=== PATIENT | male | born 1930 ===

== ENCOUNTER 2016-11-08 15:58 | Inpatient (IN) | payer MEDICARE, MEDICAID ==
--- NOTE | 2016-11-08 18:14 | C.PDOC ---
History Of Present Illness 86 y/o male with Hx of HTN, DM atrial fibrillation, and CHF with PPM presents to ED with complaints of ears clogged and dry cough since Sunday. Patient also reports sob, with exertion and sometimes with cough. He also c/o epigastric discomfort with associated decreased appetite. Last bowel movement was this morning and as per patient it was small. Patient denies n/v/d, fever, palpitations. Time Seen by Provider: 11/08/16 17:21 Chief Complaint (Nursing): Cough, Cold, Congestion History Per: Patient History/Exam Limitations: no limitations Onset/Duration Of Symptoms: Days Current Symptoms Are (Timing): Still Present Associated Symptoms: Cough Ear Symptoms: Bilateral: Ear Fullness Severity: Mild Past Medical History Reviewed: Historical Data, Nursing Documentation, Vital Signs Vital Signs: Last Vital Signs Temp 99.5 F 11/08/16 18:54 Pulse 90 11/08/16 18:54 Resp 20 11/08/16 18:54 BP 155/76 H 11/08/16 18:54 Pulse Ox 100 11/08/16 18:54 - Medical History PMH: CHF, HTN, Hypercholesterolemia, Seizures Surgical History: No Surg Hx, Pacemaker Family History: States: No Known Family Hx - Social History Hx Alcohol Use: No Hx Substance Use: No - Immunization History Hx Tetanus Toxoid Vaccination: No Hx Influenza Vaccination: No Hx Pneumococcal Vaccination: No Review Of Systems Except As Marked, All Systems Reviewed And Found Negative. ENT: Positive for: Ear Pain Cardiovascular: Negative for: Chest Pain, Palpitations Respiratory: Positive for: Cough, Shortness of Breath Gastrointestinal: Positive for: Abdominal Pain. Negative for: Nausea, Vomiting , Diarrhea Genitourinary: Negative for: Dysuria, Hematuria Physical Exam - Physical Exam Appears: Well, Non-toxic, No Acute Distress Skin: Normal Color, Warm, Dry, No Rash Head: Normacephalic Eye(s): bilateral: Normal Inspection Ear(s): Bilateral: Other (cerumen in ears bilateral) Oral Mucosa: Moist Throat: Normal, No Erythema, No Exudate Cardiovascular: Rhythm Regular Respiratory: Normal Breath Sounds, No Rales, No Rhonchi, No Wheezing Gastrointestinal/Abdominal: Bowel Sounds, Soft, Tenderness (mild TTP epigastric/ LUG), No Distention, No Guarding, No Rebound, Other (Obese ) Extremity: Normal ROM, Pedal Edema (+1 pitting edema B/L LEs) Pulses: Left Dorsalis Pedis: Normal, Right Dorsalis Pedis: Normal Neurological/Psych: Oriented x3 ED Course And Treatment ECG: Interpreted By Me, Viewed By Me (atrial fibrillation 89 bpm, left axis deviation, T wave inversions I, aVL, V5-V6, no acute ST changes) ECG Interpretation: Abnormal O2 Sat by Pulse Oximetry: 99 (RA) Pulse Ox Interpretation: Normal - Radiology CXR: Interpreted by Me, Viewed By Me (shadow behind heart- ? hiatal hernia ) CXR Interpretation: No: Infiltrates Progress Note: Blood work, CXR, EKG ordered and reviewed. CXR abnormal - CTA chest ordered. Disposition - Disposition Disposition Time: 19:05 Condition: STABLE Forms: [employer] (Welsh) - Clinical Impression Clinical Impression: Cough, Dyspnea, Leg edema - Scribe Statement The provider has reviewed the documentation as recorded by the Scribe Sri Villeda All medical record entries made by the Scribe were at my direction and personally dictated by me. I have reviewed the chart and agree that the record accurately reflects my personal performance of the history, physical exam, medical decision making, and the department course for this patient. I have also personally directed, reviewed, and agree with the discharge instructions and disposition. Physician Patient Turnover Patient Signed Over To: Sierra Ward Handoff Comments: pending labs, CT chest, reassess
[2016-11-08 18:50] LABS: BASO # 0.1 K/uL (0.0-0.2); BASO % 0.9 % (0.0-2.0); EOS # 0.1 K/uL (0.0-0.7); EOS % 1.2 % (0.0-4.0); HEMATOCRIT 31.5 % (35.0-51.0); LYMPH # 1.6 K/uL (1.0-4.3); LYMPH % 14.6 % (20.0-40.0); MEAN CORPUSCULAR HEMOGLOBIN 26.3 pg (27.0-31.0); MEAN CORPUSCULAR HGB CONC 32.9 g/dL (33.0-37.0); MEAN PLATELET VOLUME 10.7 fL (7.2-11.7); MONO # 1.6 K/uL (0.0-0.8); MONO % 14.7 % (0.0-10.0); NRBC % 0.1 % (0.0-2.0); RED CELL DISTRIBUTION WIDTH 15.4 % (11.5-14.5); WHITE BLOOD COUNT 10.6 K/uL (4.8-10.8)
[2016-11-08 18:55] LABS: CHLORIDE 103 mmol/L (98-107)
[2016-11-08 18:56] LABS: POTASSIUM 3.7 mmol/L (3.6-5.2); SODIUM 143 mmol/L (132-148)
[2016-11-08 18:58] LABS: ALB/GLOB RATIO 1.2 (1.0-2.1); ALKALINE PHOSPHATASE 33 U/L (38-126); ALT/SGPT 22 U/L (21-72); AST/SGOT 21 U/L (17-59); BILIRUBIN,TOTAL 1.5 mg/dL (0.2-1.3); BLOOD UREA NITROGEN 22 mg/dL (9-20); CARBON DIOXIDE 21 mmol/L (22-30); GFR AFRICAN-AMERICAN > 60; GLUCOSE,RANDOM 96 mg/dL (75-110); TOTAL PROTEIN 7.9 g/dL (6.3-8.3)
[2016-11-08 18:59] LABS: CALCIUM 9.7 mg/dl (8.6-10.4)
[2016-11-08] MEDS ORDERED: Iohexol 350mg/ml 100 ML ONE (19:07)
[2016-11-08 19:15] LABS: INR 1.8
--- NOTE | 2016-11-08 22:03 | CT ---
EXAM: CT Angiography Chest With Intravenous Contrast EXAM DATE/TIME: Exam ordered 11/08/2016 6:56 PM CLINICAL HISTORY: 86 years old, male; Condition or disease; Lung condition and disease; Pulmonary embolism; Additional info: Chest pain, back pain, R/O dissection TECHNIQUE: Axial computed tomographic angiography images of the chest with intravenous contrast using pulmonary embolism protocol. All CT scans at this facility use one or more dose reduction techniques, viz.: automated exposure control; ma/kV adjustment per patient size (including targeted exams where dose is matched to indication; i.e. head); or iterative reconstruction technique. MIP reconstructed images were created and reviewed. Coronal and sagittal reformatted images were created and reviewed. CONTRAST: 100 mL of VISIPAQUE 320 administered intravenously. COMPARISON: No relevant prior studies available. FINDINGS: Pulmonary arteries: Unremarkable. No pulmonary embolism. Aorta: No acute findings. No thoracic aortic aneurysm. Inferior vena cava: Is reflux of contrast into the inferior vena cava Lungs: There are interstitial thickening noted of the central bronchovascular bundles. No mass.There is a mosaic perfusion pattern noted within both lungs. Pleural space: Unremarkable. No significant effusion. No pneumothorax. Heart: There is mild cardiomegaly. No significant pericardial effusion. No evidence of RV dysfunction. Mediastinum: Small hiatal hernia. Bones/joints: Degenerative changes are noted of the dorsal spine. No acute fracture. No dislocation. Soft tissues: Unremarkable. Lymph nodes: Subcarinal node is present measuring 2 x 1.3 cm x 1.2 cm. A right infrahilar lymph node measures 2 x 1.2 x 1.6 cm. There is enlargement of the main pulmonary artery which measures 3.9 cm in diameter. Kidneys and ureters: Other findings: The RV to LV ratio is 1.14. IMPRESSION: 1. No pulmonary embolism. No aortic dissection. 2. Mosaic perfusion pattern within both lungs. Differential diagnostic considerations include air trapping, chronic venoocclusive disease and underlying interstitial lung disease. 3. Enlarged main pulmonary artery with elevated right ventricular/left ventricular ratio and reflux of contrast into the inferior vena cava. Pulmonary artery hypertension with right ventricular dysfunction should be considered. 4. Mediastinal adenopathy. Clinical correlation suggested. 5. Small hiatal hernia
[2016-11-09] MEDS ORDERED: Benzocaine/Menthol (Cepacol) Lozenge MT PRN (06:58)
--- NOTE | 2016-11-09 07:16 | CP.PCM.HP ---
<Donovan Zaldivar - Last Filed: 11/09/16 09:07> History of Present Illness - History of Present Illness History of Present Illness: 86 yo M was brought to the ED by his family. The patient is a very poor historian and the family had already left when I interviewed the patient and could not be reached by telephone. Per patient, he presented to the ED for shortness of breath that began 4 days ago. He also complains of subjective fever , diffuse chest pain, cough and abdominal pain. He denied all other prompts on review of symptom. He was not able to tell me his past medical history however his home medications were brought by his family earlier as per nurse. He stated his PMD is Dr Rodriguez and that he usually goes to [facility]. Upon chart review, this is the patient's first admission at [facility]. PMD: Dr Eddie Rodriguez PMHx: DM2, Pacemaker, poor historian thus rest will need to be verified by his PMD Home Medications: Apixaban 5mg po bid, carvedilol 25mg po bid, dutasteride 0.5mg po daily, famotidine 40mg po daily, fenofibrate 145mg po daily, furosemide 20mg po daily, losartan 50mg po daily, meclizine 25mg po tid, metformin 1000 po bid, phenytoin 100mg po tid, simvastatin 20mg po hs Allergies: NKA SocialHx: denied tobacco, alcohol, drug use; lives with in [facility], former cheese factory worker FamHx: denied Present on Admission - Present on Admission Any Indicators Present on Admission: No History of DVT/PE: No History of Uncontrolled Diabetes: No Urinary Catheter: No Decubitus Ulcer Present: No Review of Systems - Review of Systems Systems not reviewed;Unavailable: Dementia Review of Systems: possible dementia - Constitutional Constitutional: Fever. absent: Chills - EENT Eyes: Change in Vision - Cardiovascular Cardiovascular: Chest Pain. absent: Diaphoresis, Pain Radiating to Arm/Neck/Jaw - Respiratory Respiratory: Dyspnea - Gastrointestinal Gastrointestinal: Abdominal Pain - Genitourinary Genitourinary: absent: Change in Urinary Stream, Dysuria - Musculoskeletal Musculoskeletal: absent: Limited Range of Motion - Neurological Neurological: absent: Confusion Past Patient History - Past Medical History & Family History Past Medical History?: Yes - Past Social History Smoking Status: Never Smoked - CARDIAC Hx Congestive Heart Failure: Yes Hx Hypercholesterolemia: Yes Hx Hypertension: Yes Hx Pacemaker: Yes - NEUROLOGICAL Hx Seizures: Yes - ENDOCRINE/METABOLIC Hx Diabetes Mellitus Type 1: Yes - MUSCULOSKELETAL/RHEUMATOLOGICAL Hx Falls: Yes - PSYCHIATRIC Hx Substance Use: No - SURGICAL HISTORY Hx Eye Surgery: Yes (Both) - ANESTHESIA Hx Anesthesia: Yes Hx Anesthesia Reactions: No Meds Allergies/Adverse Reactions: Allergies Allergy/AdvReac Type Severity Reaction Status Date / Time No Known Allergies Allergy Verified 11/08/16 16:41 Physical Exam - Constitutional Appears: Well, Non-toxic, No Acute Distress - Head Exam Head Exam: ATRAUMATIC, NORMAL INSPECTION - Eye Exam Eye Exam: EOMI Pupil Exam: absent: PERRL Additional comments: left cornea cloudy - ENT Exam ENT Exam: Mucous Membranes Moist - Neck Exam Neck exam: Positive for: Normal Inspection. Negative for: Lymphadenopathy - Respiratory Exam Respiratory Exam: Rales, Wheezes - Cardiovascular Exam Cardiovascular Exam: Irregular Rhythm - GI/Abdominal Exam GI & Abdominal Exam: Normal Bowel Sounds, Soft. absent: Tenderness - Rectal Exam Rectal Exam: Deferred - Back Exam Back exam: NORMAL INSPECTION. absent: CVA tenderness (L), CVA tenderness (R) Results - Vital Signs Recent Vital Signs: Last Vital Signs Temp 98.1 F 11/09/16 02:30 Pulse 83 11/09/16 05:00 Resp 20 11/09/16 02:30 BP 140/81 11/09/16 02:30 Pulse Ox 97 11/09/16 02:30 - Labs Result Diagrams: 11/09/16 08:06 11/09/16 08:06 Labs: Laboratory Results - last 24 hr 11/08/16 11/08/16 11/08/16 18:43 18:43 18:43 WBC 10.6 RBC 3.94 L Hgb 10.4 L Hct 31.5 L MCV 80.0 MCH 26.3 L MCHC 32.9 L RDW 15.4 H Plt Count 165 MPV 10.7 Neut % (Auto) 68.6 Lymph % (Auto) 14.6 L [place] % (Auto) 14.7 H Eos % (Auto) 1.2 Baso % (Auto) 0.9 Neut # 7.3 H Lymph # 1.6 [place] # 1.6 H Eos # 0.1 Baso # 0.1 PT 21.4 H INR 1.8 APTT 40 H Sodium 143 Potassium 3.7 Chloride 103 Carbon Dioxide 21 L Anion Gap 23 H BUN 22 H Creatinine 1.3 Est GFR ( Amer) > 60 Est GFR (Non-Af Amer) 52 POC Glucose (mg/dL) Random Glucose 96 Calcium 9.7 Total Bilirubin 1.5 H AST 21 ALT 22 Alkaline Phosphatase 33 L Total Creatine Kinase 61 CK-MB (Mass) 0.67 Troponin I 0.0300 Troponin I, Quant NT-Pro-B Natriuret Pep 1950 H Total Protein 7.9 Albumin 4.3 Globulin 3.6 Albumin/Globulin Ratio 1.2 11/09/16 11/09/16 03:50 06:52 WBC RBC Hgb Hct MCV MCH MCHC RDW Plt Count MPV Neut % (Auto) Lymph % (Auto) [place] % (Auto) Eos % (Auto) Baso % (Auto) Neut # Lymph # [place] # Eos # Baso # PT INR APTT Sodium Potassium Chloride Carbon Dioxide Anion Gap BUN Creatinine Est GFR ( Amer) Est GFR (Non-Af Amer) POC Glucose (mg/dL) 122 H Random Glucose Calcium Total Bilirubin AST ALT Alkaline Phosphatase Total Creatine Kinase 78 CK-MB (Mass) 0.61 Troponin I Troponin I, Quant 0.0300 NT-Pro-B Natriuret Pep Total Protein Albumin Globulin Albumin/Globulin Ratio Assessment & Plan (1) CHF (congestive heart failure) Assessment and Plan: unknown past medical hx; sob, cough, physical exam finding positive for bibasilar rales Cardiology consulted, Dr Ksenia Sanches ProBNP 1950 daily weights strict I/Os ECHO ordered, F/U head of bed at 30 deg serial ROMIs, first MAXIMILIAN negative furosemide 40 ivp daily con't all home medications (hold home furosemide) Status: Acute (2) Atrial fibrillation Assessment and Plan: Hx of A-Fib; EKG showing A-Fib; rate controlled con't home med apixaban 5mg po bid Status: Acute (3) Prophylactic measure Assessment and Plan: GI: famotidine 40mg po daily DVT: on home med apixaban 5mg po bid Diet: heart healthy diet Status: Acute <Adrián Cm - Last Filed: 11/09/16 19:04> Results - Vital Signs Recent Vital Signs: Last Vital Signs Temp 99.2 F 11/09/16 07:30 Pulse 92 H 11/09/16 07:45 Resp 18 11/09/16 07:30 BP 131/84 11/09/16 11:00 Pulse Ox 98 11/09/16 07:30 - Labs Result Diagrams: 11/09/16 08:06 11/09/16 08:06 Labs: Laboratory Results - last 24 hr 11/08/16 11/08/16 11/09/16 18:43 18:43 03:50 WBC RBC Hgb Hct MCV MCH MCHC RDW Plt Count MPV Neut % (Auto) Lymph % (Auto) [place] % (Auto) Eos % (Auto) Baso % (Auto) Neut # Lymph # [place] # Eos # Baso # PT 21.4 H INR 1.8 APTT 40 H Sodium Potassium Chloride Carbon Dioxide Anion Gap BUN Creatinine Est GFR ( Amer) Est GFR (Non-Af Amer) POC Glucose (mg/dL) Random Glucose Hemoglobin A1c Calcium Iron TIBC % Saturation Ferritin Total Bilirubin AST ALT Alkaline Phosphatase Total Creatine Kinase 78 CK-MB (Mass) 0.67 0.61 Troponin I 0.0300 Troponin I, Quant 0.0300 NT-Pro-B Natriuret Pep 1950 H Total Protein Albumin Globulin Albumin/Globulin Ratio Phenytoin Influenza Typ A,B (EIA) 11/09/16 11/09/16 11/09/16 06:52 08:06 08:06 WBC 8.8 RBC 4.01 L Hgb 10.6 L Hct 32.1 L MCV 80.1 MCH 26.4 L MCHC 32.9 L RDW 15.3 H Plt Count 159 MPV 11.4 Neut % (Auto) 69.3 Lymph % (Auto) 14.0 L [place] % (Auto) 15.2 H Eos % (Auto) 1.0 Baso % (Auto) 0.5 Neut # 6.1 Lymph # 1.2 [place] # 1.3 H Eos # 0.1 Baso # 0.0 PT INR APTT Sodium 143 Potassium 3.6 Chloride 101 Carbon Dioxide 23 Anion Gap 23 H BUN 21 H Creatinine 1.2 Est GFR ( Amer) > 60 Est GFR (Non-Af Amer) 57 POC Glucose (mg/dL) 122 H Random Glucose 105 Hemoglobin A1c Calcium 9.7 Iron TIBC % Saturation Ferritin 87.1 Total Bilirubin 1.4 H AST 23 ALT 25 Alkaline Phosphatase 32 L Total Creatine Kinase CK-MB (Mass) Troponin I Troponin I, Quant NT-Pro-B Natriuret Pep Total Protein 7.6 Albumin 4.1 Globulin 3.4 Albumin/Globulin Ratio 1.2 Phenytoin Influenza Typ A,B (EIA) 11/09/16 11/09/16 11/09/16 09:03 11:21 13:46 WBC RBC Hgb Hct MCV MCH MCHC RDW Plt Count MPV Neut % (Auto) Lymph % (Auto) [place] % (Auto) Eos % (Auto) Baso % (Auto) Neut # Lymph # [place] # Eos # Baso # PT INR APTT Sodium Potassium Chloride Carbon Dioxide Anion Gap BUN Creatinine Est GFR ( Amer) Est GFR (Non-Af Amer) POC Glucose (mg/dL) 136 H Random Glucose Hemoglobin A1c Calcium Iron 26 L TIBC 461 H % Saturation 6 L Ferritin Total Bilirubin AST ALT Alkaline Phosphatase Total Creatine Kinase CK-MB (Mass) Troponin I Troponin I, Quant NT-Pro-B Natriuret Pep Total Protein Albumin Globulin Albumin/Globulin Ratio Phenytoin Influenza Typ A,B (EIA) Negative for flu a/b 11/09/16 11/09/16 11/09/16 13:46 13:46 13:46 WBC RBC Hgb Hct MCV MCH MCHC RDW Plt Count MPV Neut % (Auto) Lymph % (Auto) [place] % (Auto) Eos % (Auto) Baso % (Auto) Neut # Lymph # [place] # Eos # Baso # PT INR APTT Sodium Potassium Chloride Carbon Dioxide Anion Gap BUN Creatinine Est GFR ( Amer) Est GFR (Non-Af Amer) POC Glucose (mg/dL) Random Glucose Hemoglobin A1c 5.9 Calcium Iron TIBC % Saturation Ferritin Total Bilirubin AST ALT Alkaline Phosphatase Total Creatine Kinase CK-MB (Mass) Troponin I 0.0350 Troponin I, Quant NT-Pro-B Natriuret Pep Total Protein Albumin Globulin Albumin/Globulin Ratio Phenytoin 13.5 Influenza Typ A,B (EIA) 11/09/16 18:35 WBC RBC Hgb Hct MCV MCH MCHC RDW Plt Count MPV Neut % (Auto) Lymph % (Auto) [place] % (Auto) Eos % (Auto) Baso % (Auto) Neut # Lymph # [place] # Eos # Baso # PT INR APTT Sodium Potassium Chloride Carbon Dioxide Anion Gap BUN Creatinine Est GFR ( Amer) Est GFR (Non-Af Amer) POC Glucose (mg/dL) 118 H Random Glucose Hemoglobin A1c Calcium Iron TIBC % Saturation Ferritin Total Bilirubin AST ALT Alkaline Phosphatase Total Creatine Kinase CK-MB (Mass) Troponin I Troponin I, Quant NT-Pro-B Natriuret Pep Total Protein Albumin Globulin Albumin/Globulin Ratio Phenytoin Influenza Typ A,B (EIA) Assessment & Plan - Date & Time Date: 11/09/16 (I have seen and examined the patient. I agree with the findings and plan of care as documented by Dr. Zaldivar. Patient with CHF exacerbation. Some complaints of chest pain x4 days. ROMIx3 with EKG. Aspirin. IV Lasix. Continue home meds. Patient with history of atrial fibrillation and diabetes. Continue home meds. NISS and accuchecks. Monitor for acute changes.) Time: 19:02 Attending/Attestation - Attestation I have personally seen and examined this patient.: Yes I have fully participated in the care of the patient.: Yes I have reviewed all pertinent clinical information: Yes
--- NOTE | 2016-11-09 08:00 | RAD ---
HISTORY: cough, r/o pneumonia COMPARISON: No prior. TECHNIQUE: Chest PA and lateral FINDINGS: LUNGS: Right hilar prominence. Probable streaky retrocardiac atelectasis. Please note that chest x-ray has limited sensitivity for the detection of pulmonary masses. PLEURA: No significant pleural effusion identified. No definite pneumothorax . CARDIOVASCULAR: Borderline cardiomegaly. Degenerative changes. Dual lead left-sided pacemaker. Atherosclerotic calcifications of the aortic knob. OSSEOUS STRUCTURES: Osseous demineralization. VISUALIZED UPPER ABDOMEN: Unremarkable. OTHER FINDINGS: None. IMPRESSION: Right hilar prominence. Borderline cardiomegaly. Probable streaky retrocardiac atelectasis.
[2016-11-09 08:17] LABS: BASO % 0.5 % (0.0-2.0); EOS # 0.1 K/uL (0.0-0.7); HEMATOCRIT 32.1 % (35.0-51.0); LYMPH # 1.2 K/uL (1.0-4.3); MEAN CELL VOLUME 80.1 fL (80.0-94.0); MEAN CORPUSCULAR HEMOGLOBIN 26.4 pg (27.0-31.0); MEAN CORPUSCULAR HGB CONC 32.9 g/dL (33.0-37.0); MEAN PLATELET VOLUME 11.4 fL (7.2-11.7); MONO # 1.3 K/uL (0.0-0.8); MONO % 15.2 % (0.0-10.0); RED CELL DISTRIBUTION WIDTH 15.3 % (11.5-14.5); WHITE BLOOD COUNT 8.8 K/uL (4.8-10.8)
[2016-11-09 08:26] LABS: CHLORIDE 101 mmol/L (98-107)
[2016-11-09 08:27] LABS: SODIUM 143 mmol/L (132-148)
[2016-11-09 08:28] LABS: POTASSIUM 3.6 mmol/L (3.6-5.2)
[2016-11-09 08:30] LABS: ALB/GLOB RATIO 1.2 (1.0-2.1); ALKALINE PHOSPHATASE 32 U/L (38-126); AST/SGOT 23 U/L (17-59); BILIRUBIN,TOTAL 1.4 mg/dL (0.2-1.3); BLOOD UREA NITROGEN 21 mg/dL (9-20); CARBON DIOXIDE 23 mmol/L (22-30); GFR AFRICAN-AMERICAN > 60; TOTAL PROTEIN 7.6 g/dL (6.3-8.3)
[2016-11-09 08:31] LABS: ALT/SGPT 25 U/L (21-72); CALCIUM 9.7 mg/dl (8.6-10.4); GLUCOSE,RANDOM 105 mg/dL (75-110)
[2016-11-09] MEDS: (Novolin R) Insulin Human Regular 100 units/ml vial SC SCH ×3 (11:50→22:00)
--- NOTE | 2016-11-09 12:59 | CP.PCM.PN ---
Objective - Vital Signs/Intake and Output Vital Signs (last 24 hours): Temp Pulse Resp BP Pulse Ox 99.2 F 99 H 18 131/84 98 11/09/16 07:30 11/09/16 07:30 11/09/16 07:30 11/09/16 11:00 11/09/16 07:30 Intake and Output: 11/09/16 11/09/16 06:59 18:59 Intake Total 120 Output Total 800 Balance -680 - Medications Medications: Current Medications Apixaban (Eliquis) 5 mg PO BID [facility] Last Admin: 11/09/16 11:00 Dose: 5 mg Benzocaine/Menthol (Cepacol Sore Throat) 1 tony [place] DAILY PRN PRN Reason: Sore Throat Carvedilol (Coreg) 25 mg PO BID [facility] Last Admin: 11/09/16 11:00 Dose: 25 mg Famotidine (Pepcid) 40 mg PO DAILY [facility] Last Admin: 11/09/16 11:00 Dose: 40 mg Fenofibrate (Tricor) 145 mg PO [facility] Finasteride (Proscar) 5 mg PO DAILY [facility] Last Admin: 11/09/16 11:00 Dose: 5 mg Furosemide (Lasix) 40 mg IVP DAILY [facility] Last Admin: 11/09/16 11:00 Dose: 40 mg Influenza Virus Vaccine (Afluria) 45 mcg IM .ONCE ONE Stop: 11/10/16 10:01 Insulin Human Regular (Novolin R) 0 unit SC [facility] PRN Reason: Protocol Last Admin: 11/09/16 11:50 Dose: Not Given Losartan Potassium (Cozaar) 50 mg PO DAILY [facility] Last Admin: 11/09/16 11:00 Dose: 50 mg Meclizine HCl (Antivert) 25 mg PO TID [facility] Last Admin: 11/09/16 11:00 Dose: 25 mg Metformin HCl (Glucophage) 1,000 mg PO BID [facility] Last Admin: 11/09/16 11:00 Dose: 1,000 mg Phenytoin Sodium (Dilantin) 100 mg PO TID [facility] Last Admin: 11/09/16 11:00 Dose: 100 mg Pneumococcal Polyvalent Vaccine (Pneumovax 23 Vaccine) 0.5 ml IM .ONCE ONE Stop: 11/11/16 10:01 Rosuvastatin Calcium (Crestor) 5 mg PO HS WILLY - Labs Labs: 11/09/16 08:06 11/09/16 08:06 PT 21.4 SECONDS (9.7-12.2) H 11/08/16 18:43 INR 1.8 11/08/16 18:43 APTT 40 SECONDS (21-34) H 11/08/16 18:43 Assessment and Plan - Assessment and Plan (Free Text) Assessment: Follow up Dilantin levels follow up troponins
[2016-11-09 14:05] LABS: IRON 26 ug/dL (49-181)
--- NOTE | 2016-11-09 14:33 | CARD ---
APPROVED REPORT EXAM: Two-dimensional and M-mode echocardiogram with Doppler and color Doppler. Other Information Quality : GoodRhythm : NSR INDICATION Atrial Fibrillation Chest Pain Congestive Heart Failure 2D DIMENSIONS IVSd1.0 (0.7-1.1cm)LVDd4.2 (3.9-5.9cm) PWd1.1 (0.7-1.1cm)LVDs2.7 (2.5-4.0cm) FS (%) 34.4 %LVEF (%)63.9 (>50%) M-Mode DIMENSIONS RVDd1.27 (2.1-3.2cm)Left Atrium (MM)5.11 (2.5-4.0cm) IVSd1.04 (0.7-1.1cm)Aortic Root2.93 (2.2-3.7cm) LVDd4.53 (4.0-5.6cm)Aortic Cusp Exc.1.80 (1.5-2.0cm) PWd0.83 (0.7-1.1cm)FS (%) 51 % LVDs2.23 (2.0-3.8cm)LVEF (%)82 (>50%) Mitral Valve MV E [id number]/sE/A ratio0.0 TDI E/Lateral E'0.0E/Medial E'0.0 Tricuspid Valve TR Peak [id number] Peak [id number] LEFT VENTRICLE The left ventricle is normal size. There is borderline concentric left ventricular hypertrophy. Left ventricle systolic function is normal. The Ejection Fraction is 60-65%. There is normal LV segmental wall motion. Transmitral Doppler flow pattern is Grade I-abnormal relaxation pattern. There is no ventricular septal defect visualized. RIGHT VENTRICLE The right ventricle is normal size. The right ventricle is mildly hypertrophied. The right ventricular systolic function is normal. There is a pacemaker lead in the right ventricle. ATRIA The left atrium is moderately dilated. The right atrium size is normal. AORTIC VALVE The aortic valve is mildly sclerotic. The aortic valve is tri-cuspid. No aortic regurgitation is present. There is no aortic valvular stenosis. MITRAL VALVE The mitral valve is normal in structure. There is no evidence of mitral valve prolapse. Mitral regurgitation is mild to moderate. TRICUSPID VALVE The tricuspid valve is normal in structure. There is moderate tricuspid regurgitation. Right ventricular systolic pressure is estimated at greater than 60 mmHg. There is severe pulmonary hypertension. PULMONIC VALVE The pulmonic valve is not well visualized. There is moderate pulmonic valvular regurgitation. GREAT VESSELS The aortic root is normal in size. The ascending aorta is normal in size. There is moderate pulmonary artery dilatation. The IVC is dilated. PERICARDIAL EFFUSION There is a small circumferential pericardial effusion. <Conclusion> Left ventricle systolic function is normal. The Ejection Fraction is 60-65%. Transmitral Doppler flow pattern is Grade I-abnormal relaxation pattern. Mitral regurgitation is mild to moderate. There is severe pulmonary hypertension. There is a small circumferential pericardial effusion.
--- NOTE | 2016-11-09 15:07 | CON ---
CARDIOLOGY CONSULTATION HISTORY OF PRESENT ILLNESS: This is an 86-year-old male who was brought to the emergency room by the family. The patient has history of cough and dyspnea on exertion. The patient also complains of atypical chest pain. No diaphoresis. Detail history could not be obtained from the patient. The patient is poor historian. No history of nausea, vomiting, or abdominal pain. REVIEW OF SYSTEMS: Could not be obtained because the patient is poor historian. PAST HISTORY: History of hypertension, pacemaker, diabetes and congestive heart failure. MEDICATIONS: The patient's medications are apixaban 5 mg p.o. twice a day, carvedilol 25 mg twice a day, dutasteride 0.5 mg p.o. daily, famotidine 40 mg p.o. daily, fenofibrate 145 mg p.o. daily and Lasix 20 mg p.o. daily. The patient is also on losartan and meclizine and metformin 1000 mg p.o. twice a day. The patient takes phenytoin 100 mg twice a day for seizure disorder. Simvastatin 20 mg p.o. daily. ALLERGIES: NO KNOWN ALLERGY. SOCIAL HISTORY: Nonsmoker, nonalcoholic, no IVDA. FAMILY HISTORY: No known inherited disease. PHYSICAL EXAMINATION: GENERAL: This is an 86-year-old male, awake, alert and comfortable. VITAL SIGNS: Temperature 98.1, pulse 83, respirations 20, blood pressure 140/81 mmHg, pulse ox is 97% on room air. HEENT: Normal. NECK: JVP is flat. Carotids, no bruits. LUNGS: No rales. No wheezing. HEART: S1 and S2 normal. No gallop. No murmur. ABDOMEN: Soft, nontender. No organomegaly. CENTRAL NERVOUS SYSTEM: No focal neurological deficits. EXTREMITIES: Edema of the legs is present. IMAGING: On admission, EKG shows pacemaker rhythm at times and atrial fibrillation is underlying rhythm. Chest x-ray is chronic lung disease. First set of troponin is negative. All the lab work shows elevated bilirubin. CAT scan of the chest is done which shows mediastinal lymphadenopathy. IMPRESSION: Congestive heart failure by history. Possible coronary artery disease with pacemaker implant. Atrial fibrillation. Diabetes mellitus, hypertension. Chest pain. Suggest aggravate present management. We will get echocardiogram. The patient is refusing further troponin checkups. We will continue all the medications. Other workup as needed. Ksenia Sanches MD
--- NOTE | 2016-11-09 16:32 | CP.PCM.DIS ---
<Nikki Hope - Last Filed: 11/09/16 16:33> Provider - Provider Date of Admission: 11/08/16 22:07 Attending physician: Adrián Cm MD Time Spent in preparation of Discharge (in minutes): 35 Hospital Course - Lab Results Lab Results: Most Recent Lab Values WBC 8.8 K/uL (4.8-10.8) 11/09/16 08:06 RBC 4.01 Mil/uL (4.40-5.90) L 11/09/16 08:06 Hgb 10.6 g/dL (12.0-18.0) L 11/09/16 08:06 Hct 32.1 % (35.0-51.0) L 11/09/16 08:06 MCV 80.1 fL (80.0-94.0) 11/09/16 08:06 MCH 26.4 pg (27.0-31.0) L 11/09/16 08:06 MCHC 32.9 g/dL (33.0-37.0) L 11/09/16 08:06 RDW 15.3 % (11.5-14.5) H 11/09/16 08:06 Plt Count 159 K/uL (130-400) 11/09/16 08:06 MPV 11.4 fL (7.2-11.7) 11/09/16 08:06 Neut % (Auto) 69.3 % (50.0-75.0) 11/09/16 08:06 Lymph % (Auto) 14.0 % (20.0-40.0) L 11/09/16 08:06 [place] % (Auto) 15.2 % (0.0-10.0) H 11/09/16 08:06 Eos % (Auto) 1.0 % (0.0-4.0) 11/09/16 08:06 Baso % (Auto) 0.5 % (0.0-2.0) 11/09/16 08:06 Neut # 6.1 K/uL (1.8-7.0) 11/09/16 08:06 Lymph # 1.2 K/uL (1.0-4.3) 11/09/16 08:06 [place] # 1.3 K/uL (0.0-0.8) H 11/09/16 08:06 Eos # 0.1 K/uL (0.0-0.7) 11/09/16 08:06 Baso # 0.0 K/uL (0.0-0.2) 11/09/16 08:06 PT 21.4 SECONDS (9.7-12.2) H 11/08/16 18:43 INR 1.8 11/08/16 18:43 APTT 40 SECONDS (21-34) H 11/08/16 18:43 Sodium 143 mmol/L (132-148) 11/09/16 08:06 Potassium 3.6 mmol/L (3.6-5.2) 11/09/16 08:06 Chloride 101 mmol/L (98-107) 11/09/16 08:06 Carbon Dioxide 23 mmol/L (22-30) 11/09/16 08:06 Anion Gap 23 (10-20) H 11/09/16 08:06 BUN 21 mg/dL (9-20) H 11/09/16 08:06 Creatinine 1.2 MG/DL (0.8-1.5) 11/09/16 08:06 Est GFR ( Amer) > 60 11/09/16 08:06 Est GFR (Non-Af Amer) 57 11/09/16 08:06 POC Glucose (mg/dL) 136 mg/dL (65-110) H 11/09/16 11:21 Random Glucose 105 mg/dL (75-110) 11/09/16 08:06 Hemoglobin A1c 5.9 % (4.2-6.5) 11/09/16 13:46 Calcium 9.7 mg/dl (8.6-10.4) 11/09/16 08:06 Iron 26 ug/dL (49-181) L 11/09/16 13:46 TIBC 461 ug/dL (250-450) H 11/09/16 13:46 % Saturation 6 (20-55) L 11/09/16 13:46 Ferritin 87.1 ng/mL 11/09/16 08:06 Total Bilirubin 1.4 mg/dL (0.2-1.3) H 11/09/16 08:06 AST 23 U/L (17-59) 11/09/16 08:06 ALT 25 U/L (21-72) 11/09/16 08:06 Alkaline Phosphatase 32 U/L (38-126) L 11/09/16 08:06 Total Creatine Kinase 78 U/L (55-170) 11/09/16 03:50 CK-MB (Mass) 0.61 ng/mL (0.0-3.38) 11/09/16 03:50 Troponin I 0.0350 ng/mL (0.00-0.120) 11/09/16 13:46 Troponin I, Quant 0.0300 ng/mL (0.00-0.120) 11/09/16 03:50 NT-Pro-B Natriuret Pep 1950 pg/mL (0-900) H 11/08/16 18:43 Total Protein 7.6 g/dL (6.3-8.3) 11/09/16 08:06 Albumin 4.1 g/dL (3.5-5.0) 11/09/16 08:06 Globulin 3.4 gm/dL (2.2-3.9) 11/09/16 08:06 Albumin/Globulin Ratio 1.2 (1.0-2.1) 11/09/16 08:06 Phenytoin 13.5 ug/mL (10-20) 11/09/16 13:46 Influenza Typ A,B (EIA) Negative for flu a/b (NEGATIVE) 11/09/16 09:03 - Hospital Course Hospital Course: Cardiology Consult: Dr. ksenia Sanches, for CHF, A-fib, chest pain - Date & Time of H&P Date of H&P: 11/09/16 Time of H&P: 16:33 Discharge Exam - Head Exam Head Exam: ATRAUMATIC, NORMAL INSPECTION Discharge Plan - Discharge Medications Prescriptions: Apixaban [Eliquis] 5 mg PO BID #60 tab Carvedilol [Coreg] 25 mg PO BID 30 Days tab Dutasteride [Avodart] 0.5 mg PO DAILY #30 capsule Famotidine [Pepcid] 40 mg PO DAILY 30 Days tab Fenofibrate [Tricor] 1 tab PO DAILY 30 Days tab Finasteride [Proscar] 5 mg PO DAILY 30 Days tab Furosemide [Lasix] 20 mg PO DAILY 30 Days tab Losartan [Cozaar] 50 mg PO DAILY 30 Days tab MetFORMIN [glucoPHAGE] 1,000 mg PO BID 30 Days tab Phenytoin Sodium Extended 100 mg PO TID #90 capsule Rosuvastatin Calcium [Crestor] 5 mg PO HS 30 Days tab Simvastatin 20 mg PO HS 30 Days tablet - Follow Up Plan Condition: FAIR Disposition: HOME/ ROUTINE Instructions: Famotidine (By mouth), Furosemide (By mouth), Finasteride (By mouth), Simvastatin (By mouth), Losartan (By mouth), Metformin (By mouth), Carvedilol (By mouth), Fenofibrate (By mouth), Apixaban (By mouth), Heart Failure (DC), Atrial Fibrillation (DC), Heart Healthy Diet (DC), Diabetic Foot Care (DC), Basic Carbohydrate Counting (DC), Meal Planning with the Plate Method (DC), Meal Planning with Diabetes Exchanges (DC) Additional Instructions: Follow up with Dr. Rincon in 7 days for follow up with Iron studies for Iron deficiency anemia workup Obtain referral for follow up with Neurologist for seizures, ENT for evacuation of cerumen Follow up with [facility] for grade I diastolic dysfunction Coreg 2.5 mg BID 0900, 2100 Lasix 20 mg POQD 1200 eliquis 5 mg POBID 0900 2100 Adavert 0.5 mg POQD 0900 Tricor 145 mg POQD w/ dinner simvastatin 20 mg POQdinner Dilantin 100 mg TID 0900, 1700, 2100 Metformin 1000 BID Q breakfast and dinner Losartan 50 mg POQD 1700 Simvastatin 20 mg PD 1700 Pepcid 40mg POQD 1700 Referrals: Ksenia Sanches MD [Staff Provider] - <Jackson Sanches - Last Filed: 11/09/16 19:26> Provider - Provider Date of Admission: 11/08/16 22:07 Attending physician: Adrián Cm MD Hospital Course - Lab Results Lab Results: Most Recent Lab Values WBC 8.8 K/uL (4.8-10.8) 11/09/16 08:06 RBC 4.01 Mil/uL (4.40-5.90) L 11/09/16 08:06 Hgb 10.6 g/dL (12.0-18.0) L 11/09/16 08:06 Hct 32.1 % (35.0-51.0) L 11/09/16 08:06 MCV 80.1 fL (80.0-94.0) 11/09/16 08:06 MCH 26.4 pg (27.0-31.0) L 11/09/16 08:06 MCHC 32.9 g/dL (33.0-37.0) L 11/09/16 08:06 RDW 15.3 % (11.5-14.5) H 11/09/16 08:06 Plt Count 159 K/uL (130-400) 11/09/16 08:06 MPV 11.4 fL (7.2-11.7) 11/09/16 08:06 Neut % (Auto) 69.3 % (50.0-75.0) 11/09/16 08:06 Lymph % (Auto) 14.0 % (20.0-40.0) L 11/09/16 08:06 [place] % (Auto) 15.2 % (0.0-10.0) H 11/09/16 08:06 Eos % (Auto) 1.0 % (0.0-4.0) 11/09/16 08:06 Baso % (Auto) 0.5 % (0.0-2.0) 11/09/16 08:06 Neut # 6.1 K/uL (1.8-7.0) 11/09/16 08:06 Lymph # 1.2 K/uL (1.0-4.3) 11/09/16 08:06 [place] # 1.3 K/uL (0.0-0.8) H 11/09/16 08:06 Eos # 0.1 K/uL (0.0-0.7) 11/09/16 08:06 Baso # 0.0 K/uL (0.0-0.2) 11/09/16 08:06 PT 21.4 SECONDS (9.7-12.2) H 11/08/16 18:43 INR 1.8 11/08/16 18:43 APTT 40 SECONDS (21-34) H 11/08/16 18:43 Sodium 143 mmol/L (132-148) 11/09/16 08:06 Potassium 3.6 mmol/L (3.6-5.2) 11/09/16 08:06 Chloride 101 mmol/L (98-107) 11/09/16 08:06 Carbon Dioxide 23 mmol/L (22-30) 11/09/16 08:06 Anion Gap 23 (10-20) H 11/09/16 08:06 BUN 21 mg/dL (9-20) H 11/09/16 08:06 Creatinine 1.2 MG/DL (0.8-1.5) 11/09/16 08:06 Est GFR ( Amer) > 60 11/09/16 08:06 Est GFR (Non-Af Amer) 57 11/09/16 08:06 POC Glucose (mg/dL) 118 mg/dL (65-110) H 11/09/16 18:35 Random Glucose 105 mg/dL (75-110) 11/09/16 08:06 Hemoglobin A1c 5.9 % (4.2-6.5) 11/09/16 13:46 Calcium 9.7 mg/dl (8.6-10.4) 11/09/16 08:06 Iron 26 ug/dL (49-181) L 11/09/16 13:46 TIBC 461 ug/dL (250-450) H 11/09/16 13:46 % Saturation 6 (20-55) L 11/09/16 13:46 Ferritin 87.1 ng/mL 11/09/16 08:06 Total Bilirubin 1.4 mg/dL (0.2-1.3) H 11/09/16 08:06 AST 23 U/L (17-59) 11/09/16 08:06 ALT 25 U/L (21-72) 11/09/16 08:06 Alkaline Phosphatase 32 U/L (38-126) L 11/09/16 08:06 Total Creatine Kinase 78 U/L (55-170) 11/09/16 03:50 CK-MB (Mass) 0.61 ng/mL (0.0-3.38) 11/09/16 03:50 Troponin I 0.0350 ng/mL (0.00-0.120) 11/09/16 13:46 Troponin I, Quant 0.0300 ng/mL (0.00-0.120) 11/09/16 03:50 NT-Pro-B Natriuret Pep 1950 pg/mL (0-900) H 11/08/16 18:43 Total Protein 7.6 g/dL (6.3-8.3) 11/09/16 08:06 Albumin 4.1 g/dL (3.5-5.0) 11/09/16 08:06 Globulin 3.4 gm/dL (2.2-3.9) 11/09/16 08:06 Albumin/Globulin Ratio 1.2 (1.0-2.1) 11/09/16 08:06 Phenytoin 13.5 ug/mL (10-20) 11/09/16 13:46 Influenza Typ A,B (EIA) Negative for flu a/b (NEGATIVE) 11/09/16 09:03 Attending/Attestation - Attestation I have personally seen and examined this patient.: Yes I have fully participated in the care of the patient.: Yes I have reviewed all pertinent clinical information, including history, physical exam and plan: Yes Notes (Text): 11/09/16 19:05 Patient was seen and examined at 8:45 AM 11/09/16 Upon FULL ROS: cough occasionally productive of white material NO SOB NO CP NO abdominal pain NO n/v/d/c NO burning/pain with urination Pain in both ears (myself and Nurse Terrie who translated Malian had to speak really loud for patient to understand us) Exam: HEENT: Severe bilateral hard dry cerumen impaction bilaterally, NCA, Pupils are round and reactive to light, Extraocular Muscles could not be tested as patient is blind in both eyes, NO pharyngeal erythema/exudate, Mucous Membranes are moist, Nasal Turbinates are nonedematous/nonerythematous Cardio: Irregularly irregular Respiratory: Bilateral basilar inspiratory rales GI: BSx4, Soft, NT, ND, NO HSM, NO guarding/rebound tenderness Ext: NO edema, Pulses are strong and equal, Capillary Refill is 2 seconds Assessment and Plan: 1). Hx CHF 2D Echo 11/09/16 showed E 60-65%, Grade 1 abnormal relaxation pattern, severe Pulmonary HTN, small pericardial effusion CT Angio Chest: NO PE, NO Dissection, enlarged main pulmonary artery with increased right ventricular/left ventricular ratio, pulmonary artery HTN, right ventricular dysfunction, mediastinal lymphadenopathy F/U further recommendations from Cardiology AravindKumar Troponin x 3 negative HOB at 45 degrees Daily Weight Dietary Consult for HF diet 2). Hx Atrial Fibrillation Eliquis 5 mg PO 1x/day 3). BPH Avodart 0.5 mg PO 1x/day 4). HLD Tricor 45 mg PO HS Crestor 5 mg PO HS 5). DM 2 Metformin 1,000 mg PO 2x/day F/U HgBA1C RISS ACHS 6). Hx Seizure Phenytoin 100 mg PO TID F/U Dilantin Level 7). HTN Cozaar 50 mg PO 1x/day 8). Anemia Likely secondary to Iron Deficiency F/U Iron Studies 9). Bilateral Cerumen Impaction Patient will need to have ENT remove cerumen 10). Mediastinal Lymphadenopathy As seen on CT Angio Chest Will need further follow up as outpatient 10). Change in Mental Status Patient was going to be discharged to home and all Rx were placed in the chart However notified by Nurse Ginna that who was here to pick him up at 6:30 PM noticed patient reaching for things that were not there. Exam was unchanged. NO facial droop or extremities weakness. Discharge was cancelled CT Head without contrast was ordered STAT and Ativan 1 mg IV x 1 dose ordered PRIOR to CT Head F/U Blood and Urine Cultures F/U Psychiatry Dr. La consultation Consider Neurology consultation based upon findings in CT Head I had spoken wit PMD Dr. Eddie Rodriguez [phone] this morning and confirmed patient's history. Jackson Sanches D.O.
--- NOTE | 2016-11-09 19:26 | CP.PCM.PCO ---
Physician Communication Note - Physician Communication Note Physician Communication Note: Please see above
--- NOTE | 2016-11-09 20:32 | CT ---
EXAM: CT Head Without Intravenous Contrast EXAM DATE/TIME: Exam ordered 11/09/2016 6:32 PM CLINICAL HISTORY: 86 years old, male; Signs and symptoms; Altered mental status/memory loss; Additional info: Change in mental status TECHNIQUE: Axial computed tomography images of the head/brain without intravenous contrast. All CT scans at this facility use one or more dose reduction techniques, viz.: automated exposure control; ma/kV adjustment per patient size (including targeted exams where dose is matched to indication; i.e. head); or iterative reconstruction technique. COMPARISON: No relevant prior studies available. FINDINGS: Brain: Dural calcification is present . There is a 9 mm low density focus noted within the garcia radiata in the right frontal lobe. Low density is noted within the periventricular white matter extending into the garcia radiata and centrum semiovale bilaterally. No hemorrhage. No edema. Ventricles: Unremarkable. No ventriculomegaly. Bones/joints: There has been a right parietal craniotomy. No acute fracture. Soft tissues: Unremarkable. Sinuses: There are bilateral air fluid levels in the maxillary sinuses. Mucosal thickening is noted in the ethmoid air cells and middle frontal sinus. Mastoid air cells: Unremarkable as visualized. No mastoid effusion. IMPRESSION: 1. No acute findings intracranially. 2. Acute maxillary sinusitis. 3. Chronic sinusitis in the ethmoid and frontal sinus. 4. 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 Chronic microvascular ischemic change
[2016-11-10] MEDS: (Novolin R) Insulin Human Regular 100 units/ml vial SC SCH ×4 (08:33→22:30)
[2016-11-10] MEDS ORDERED: Influenza Virus Vaccine (Afluria Inactive dont use ) IM ONE (10:00)
--- NOTE | 2016-11-10 11:12 | PCM.PSYCH ---
Initial Psychiatric Evaluation - Initial Psychiatric Evaluation Chief Complaint (in patient's own words): No response History of Present Illness and Precipitating Events: The pt is seen, chart reviewed and case discussed Consult was requested for his AMS Seen twice as he was overly-sedated. As per family and chart, he has no psych or drug/alcohol history. He was about to be discharged but observed to be hallucinating and d/c is cancelled. He is seen with a [facility] [place] speaking medical staff. He is disoriented and forgetful He denies AVH, servando/homi However, due to his confusion and sedation, it is hard to fully assess his mental status. No past psych hx Unknown family psych hx Medical hx as per chart Current Medications: Active Medications Generic Name Dose Route Start Last Admin Trade Name Freq PRN Reason Stop Dose Admin Apixaban 5 mg 11/09/16 10:00 11/10/16 10:17 Eliquis PO Not Given BID WILLY Benzocaine/Menthol 1 tony 11/09/16 06:58 Cepacol Sore Throat MT DAILY PRN Sore Throat Carvedilol 25 mg 11/09/16 10:00 11/10/16 10:17 Coreg PO Not Given BID WILLY Famotidine 40 mg 11/09/16 10:00 11/10/16 10:21 Pepcid PO Not Given DAILY WILLY Fenofibrate 145 mg 11/09/16 22:00 11/09/16 22:31 Tricor PO Not Given HS WILLY Finasteride 5 mg 11/09/16 10:00 11/10/16 10:21 Proscar PO Not Given DAILY WILLY Furosemide 40 mg 11/09/16 10:00 11/10/16 10:07 Lasix IVP 40 mg DAILY WILLY Administration Insulin Human Regular 0 unit 11/09/16 11:30 11/10/16 08:33 Novolin R SC Not Given ACHS WILLY Protocol Losartan Potassium 50 mg 11/09/16 10:00 11/10/16 10:17 Cozaar PO Not Given DAILY WILLY Meclizine HCl 25 mg 11/09/16 10:00 11/10/16 10:17 Antivert PO Not Given TID WILLY Metformin HCl 1,000 mg 11/09/16 10:00 11/10/16 10:17 Glucophage PO Not Given BID WILLY Phenytoin Sodium 100 mg 11/09/16 10:00 11/10/16 10:17 Dilantin PO Not Given TID [facility] Pneumococcal Polyvalent Vaccine 0.5 ml 11/11/16 10:00 Pneumovax 23 Vaccine IM 11/11/16 10:01 .ONCE ONE Rosuvastatin Calcium 5 mg 11/09/16 22:00 11/09/16 22:30 Crestor PO Not Given HS [facility] Past Psychiatric History - Past Psychiatric History Previous Treatment History: None Pertinent Medical Hx (Current Medical&Sleep Prob, Allergies): Allergies Allergy/AdvReac Type Severity Reaction Status Date / Time No Known Allergies Allergy Verified 11/08/16 16:41 Apixaban [Eliquis] 5 mg PO BID #60 tab 11/09/16 Carvedilol [Coreg] 25 mg PO BID 30 Days tab 11/09/16 Dutasteride [Avodart] 0.5 mg PO DAILY #30 capsule 11/09/16 Famotidine [Pepcid] 40 mg PO DAILY 30 Days tab 11/09/16 Fenofibrate [Tricor] 1 tab PO DAILY 30 Days tab 11/09/16 Finasteride [Proscar] 5 mg PO DAILY 30 Days tab 11/09/16 Furosemide [Lasix] 20 mg PO DAILY 30 Days tab 11/09/16 Losartan [Cozaar] 50 mg PO DAILY 30 Days tab 11/09/16 MetFORMIN [glucoPHAGE] 1,000 mg PO BID 30 Days tab 11/09/16 Phenytoin Sodium Extended 100 mg PO TID #90 capsule 11/09/16 Phenytoin, Extended [Dilantin] 100 mg PO TID 30 Days #0 cer 11/09/16 Rosuvastatin Calcium [Crestor] 5 mg PO HS 30 Days tab 11/09/16 Simvastatin 20 mg PO HS 30 Days tablet 11/09/16 Review of Systems - Psychiatric Psychiatric: Abnormal Sleep Pattern, Hallucinations (recently), Irritability. absent: Homicidal Ideation, Paranoia, Suicidal Ideation Mental Status Examination - Personal Presentation Personal Presentation: Looks stated age - Affect Affect: Constricted - Motor Activity Motor Activity: Psychomotor Retardation - Reliability in Providing Information Reliability in Providing Information: Poor, due to cognitve impairment - Speech Speech: Disorganized - Mood Mood: Other (no answer) - Formal Thought Process Formal Thought Process: Hallucinations (recently) - Cognitive Functions Orientation: Person (overall disoriented) Sensorium: Drowsy Attention/Concentration: Easily distracted Memory: Recent impaired, as evidence by: Inability to recall events of the day, Remote impaired as evidenced by: Inability to recall sig life events - Risk Risk: Elopement, Falls, Diminished functioning - Strength & Assets Inventory Strength & Assets Inventory: Family support DSM 5 DX - DSM 5 DSM 5 Diagnosis: Delirium (likely due to an infection, med side-effects or rule out - Dementia - Recommended/Plan of Treatment Treatment Recommendations and Plan of Treatment: prn haldol 1 mg for agitation (PO or IM, not IV) prn ativan 1 mg for severe agitation (use less due to confusion risk and his age ) Trazodone 25 mg helps agitation and sleep Consider inderal TID if needed (also helps agitaion in delirium and dementia) Continue treating underlying causes (main treatment for delirium) Support, frequent orientation 1:1 for now Dementia work-up (vit b12, folate levels, vit d, TSH, RPR, etc.) 32 min
[2016-11-10 12:05] LABS: BASO # 0.1 K/uL (0.0-0.2); BASO % 0.4 % (0.0-2.0); HEMATOCRIT 34.1 % (35.0-51.0); LYMPH # 0.9 K/uL (1.0-4.3); LYMPH % 6.5 % (20.0-40.0); MEAN CELL VOLUME 80.9 fL (80.0-94.0); MEAN CORPUSCULAR HEMOGLOBIN 26.4 pg (27.0-31.0); MEAN CORPUSCULAR HGB CONC 32.7 g/dL (33.0-37.0); MEAN PLATELET VOLUME 11.4 fL (7.2-11.7); MONO % 14.3 % (0.0-10.0); PLATELET COUNT 184 K/uL (130-400); RED CELL DISTRIBUTION WIDTH 15.1 % (11.5-14.5)
[2016-11-10 12:10] LABS: CHLORIDE 101 mmol/L (98-107); POTASSIUM 3.6 mmol/L (3.6-5.2); SODIUM 145 mmol/L (132-148)
[2016-11-10 12:12] LABS: BILIRUBIN,TOTAL 2.3 mg/dL (0.2-1.3); GFR AFRICAN-AMERICAN > 60
[2016-11-10 12:13] LABS: ALB/GLOB RATIO 1.1 (1.0-2.1); ALKALINE PHOSPHATASE 35 U/L (38-126); ALT/SGPT 20 U/L (21-72); AST/SGOT 32 U/L (17-59); BLOOD UREA NITROGEN 22 mg/dL (9-20); CALCIUM 10.4 mg/dl (8.6-10.4); CARBON DIOXIDE 24 mmol/L (22-30); GLUCOSE,RANDOM 123 mg/dL (75-110); TOTAL PROTEIN 8.3 g/dL (6.3-8.3)
[2016-11-10 12:15] LABS: WHITE BLOOD COUNT 14.1 K/uL (4.8-10.8)
--- NOTE | 2016-11-10 12:48 | CP.PCM.PN ---
Subjective - Date & Time of Evaluation Date of Evaluation: 11/10/16 Time of Evaluation: 12:45 - Subjective Subjective: APPEARS CONFUSED. AMS. NO CHEST PAIN. TACHYCARDIC WITH A. FIB. BP WNL. NO SOB. LEUCOCYTOSIS. AFEBRILE. Objective - Vital Signs/Intake and Output Vital Signs (last 24 hours): Temp Pulse Resp BP Pulse Ox 99 F 116 H 20 142/76 100 11/09/16 23:22 11/10/16 08:37 11/09/16 23:22 11/10/16 10:07 11/09/16 23:22 - Medications Medications: Current Medications Apixaban (Eliquis) 5 mg PO BID [facility] Last Admin: 11/10/16 10:17 Dose: Not Given Benzocaine/Menthol (Cepacol Sore Throat) 1 tony MT DAILY PRN PRN Reason: Sore Throat Carvedilol (Coreg) 25 mg PO BID [facility] Last Admin: 11/10/16 10:17 Dose: Not Given Famotidine (Pepcid) 40 mg PO DAILY [facility] Last Admin: 11/10/16 10:21 Dose: Not Given Fenofibrate (Tricor) 145 mg PO HS [facility] Last Admin: 11/09/16 22:31 Dose: Not Given Finasteride (Proscar) 5 mg PO DAILY [facility] Last Admin: 11/10/16 10:21 Dose: Not Given Furosemide (Lasix) 40 mg IVP DAILY [facility] Last Admin: 11/10/16 10:07 Dose: 40 mg Home Med (Home Med) 1 unit OU BID [facility] Insulin Human Regular (Novolin R) 0 unit SC ACHS [facility] PRN Reason: Protocol Last Admin: 11/10/16 08:33 Dose: Not Given Losartan Potassium (Cozaar) 50 mg PO DAILY [facility] Last Admin: 11/10/16 10:17 Dose: Not Given Meclizine HCl (Antivert) 25 mg PO TID [facility] Last Admin: 11/10/16 10:17 Dose: Not Given Metformin HCl (Glucophage) 1,000 mg PO BID [facility] Last Admin: 11/10/16 10:17 Dose: Not Given Phenytoin Sodium (Dilantin) 100 mg PO TID [facility] Last Admin: 11/10/16 10:17 Dose: Not Given Pneumococcal Polyvalent Vaccine (Pneumovax 23 Vaccine) 0.5 ml IM .ONCE ONE Stop: 11/11/16 10:01 Rosuvastatin Calcium (Crestor) 5 mg PO HS [facility] Last Admin: 11/09/16 22:30 Dose: Not Given - Labs Labs: 11/10/16 11:49 11/10/16 11:49 PT 21.4 SECONDS (9.7-12.2) H 11/08/16 18:43 INR 1.8 11/08/16 18:43 APTT 40 SECONDS (21-34) H 11/08/16 18:43 - Constitutional Appears: No Acute Distress, Chronically Ill - Eye Exam Eye Exam: Normal appearance, PERRL - ENT Exam ENT Exam: Mucous Membranes Moist, Normal Exam - Respiratory Exam Respiratory Exam: Clear to Ausculation Bilateral, NORMAL BREATHING PATTERN - Cardiovascular Exam Cardiovascular Exam: Irregular Rhythm, +S1, +S2 - GI/Abdominal Exam GI & Abdominal Exam: Soft, Normal Bowel Sounds - Exam External exam: NORMAL EXTERNAL EXAM - Extremities Exam Extremities Exam: Full ROM, Normal Capillary Refill, Normal Inspection. absent : Joint Swelling, Pedal Edema - Psychiatric Exam Psychiatric exam: Normal Affect, Normal Mood Assessment and Plan - Assessment and Plan (Free Text) Assessment: CARDIAC STABLE. A. FIB. LEUCOCYTOSIS. Plan: CT OTHER MANAGEMENT. NO FURTHER CARDIAC W/U ADVISED.
[2016-11-10 12:58] LABS: NEUTROPHIL 80 % (50-75); TOTAL CELLS COUNTED 100
[2016-11-10] MEDS: diltiaZEM 120 mg/24 Hours CD Cap PO SCH (13:27)
[2016-11-10] MEDS: Metoprolol 1 mg/ml Inj IVP PRN ×2 (13:34→21:00)
[2016-11-10 14:37] LABS: RBC URINE 14 /hpf (0-3); URINE BACTERIA OCC (<OCC); URINE BILIRUBIN NEGATIVE (NEGATIVE); URINE BLOOD 2+ (NEGATIVE); URINE COLOR Yellow (YELLOW); URINE GLUCOSE (UA) NORMAL (Normal); URINE KETONE NEGATIVE (NEGATIVE); URINE LEUKOCYTE ESTERASE TRACE Leu/uL (Negative); URINE PROTEIN NEGATIVE (NEGATIVE); WBC URINE 3 /hpf (0-5)
--- NOTE | 2016-11-10 16:32 | CP.PCM.PN ---
<Nikki Hope - Last Filed: 11/10/16 16:56> Subjective - Date & Time of Evaluation Date of Evaluation: 11/10/16 Time of Evaluation: 16:32 - Subjective Subjective: Internal Medicine progress note for Dr. Burgos Patient seen and examined at bedside. Patient is lethargic. Patient currently has a-fib RVR. concern was in place for telemetry readings, possible ST elevation. EKG came back uncontrolled A-fib no ST elevations. Unable to conduct progress note questions for subjective Objective - Vital Signs/Intake and Output Vital Signs (last 24 hours): Temp Pulse Resp BP Pulse Ox 99 F 116 H 20 142/76 100 11/09/16 23:22 11/10/16 08:37 11/09/16 23:22 11/10/16 10:07 11/09/16 23:22 - Medications Medications: Current Medications Apixaban (Eliquis) 5 mg PO BID [facility] Last Admin: 11/10/16 10:17 Dose: Not Given Benzocaine/Menthol (Cepacol Sore Throat) 1 tony MT DAILY PRN PRN Reason: Sore Throat Carvedilol (Coreg) 25 mg PO BID [facility] Last Admin: 11/10/16 10:17 Dose: Not Given Diltiazem HCl (Cardizem Cd) 120 mg PO DAILY [facility] Last Admin: 11/10/16 13:27 Dose: 120 mg Famotidine (Pepcid) 40 mg PO DAILY [facility] Last Admin: 11/10/16 10:21 Dose: Not Given Fenofibrate (Tricor) 145 mg PO HS [facility] Last Admin: 11/09/16 22:31 Dose: Not Given Finasteride (Proscar) 5 mg PO DAILY [facility] Last Admin: 11/10/16 10:21 Dose: Not Given Furosemide (Lasix) 40 mg IVP DAILY [facility] Last Admin: 11/10/16 10:07 Dose: 40 mg Haloperidol (Haldol) 1 mg PO Q4H PRN PRN Reason: Agitation Haloperidol Lactate (Haldol) 1 mg IM ONCE PRN PRN Reason: Agitation Home Med (Patient's Own Drops) 1 drop OU BID [facility] Insulin Human Regular (Novolin R) 0 unit SC ACHS [facility] PRN Reason: Protocol Last Admin: 11/10/16 13:31 Dose: Not Given Lorazepam (Ativan) 1 mg IVP Q6H PRN PRN Reason: Severe agitation Losartan Potassium (Cozaar) 50 mg PO DAILY [facility] Last Admin: 11/10/16 10:17 Dose: Not Given Meclizine HCl (Antivert) 25 mg PO TID [facility] Last Admin: 11/10/16 13:40 Dose: Not Given Metformin HCl (Glucophage) 1,000 mg PO BID [facility] Last Admin: 11/10/16 10:17 Dose: Not Given Metoprolol Tartrate (Lopressor) 5 mg IVP Q1H PRN PRN Reason: Other Last Admin: 11/10/16 13:34 Dose: 5 mg Phenytoin Sodium (Dilantin) 100 mg PO TID [facility] Last Admin: 11/10/16 13:40 Dose: Not Given Pneumococcal Polyvalent Vaccine (Pneumovax 23 Vaccine) 0.5 ml IM .ONCE ONE Stop: 11/11/16 10:01 Rosuvastatin Calcium (Crestor) 5 mg PO [facility] Last Admin: 11/09/16 22:30 Dose: Not Given Trazodone HCl (Desyrel) 25 mg PO [facility] - Labs Labs: 11/10/16 11:49 11/10/16 11:49 PT 21.4 SECONDS (9.7-12.2) H 11/08/16 18:43 INR 1.8 11/08/16 18:43 APTT 40 SECONDS (21-34) H 11/08/16 18:43 - Constitutional Appears: Non-toxic - Head Exam Head Exam: NORMAL INSPECTION - Eye Exam Additional comments: patient is blind. unable to do a full physical exam on eyes - ENT Exam ENT Exam: Mucous Membranes Moist - Neck Exam Neck Exam: Full ROM. absent: Tenderness - Respiratory Exam Respiratory Exam: NORMAL BREATHING PATTERN. absent: Accessory Muscle Use, Respiratory Distress - Cardiovascular Exam Cardiovascular Exam: Tachycardia, Irregular Rhythm. absent: REGULAR RHYTHM - GI/Abdominal Exam GI & Abdominal Exam: Soft, Normal Bowel Sounds. absent: Tenderness - Extremities Exam Extremities Exam: Full ROM, Normal Inspection. absent: Pedal Edema - Neurological Exam Neurological Exam: Alert, Awake, Oriented x3 - Psychiatric Exam Psychiatric exam: Normal Affect, Normal Mood - Skin Skin Exam: Dry, Intact, Normal Color, Warm Assessment and Plan - Assessment and Plan (Free Text) Assessment: The pt is seen, chart reviewed and case discussed Consult was requested for his AMS The pt is heavily sedated at this point, so we will return. He seems to be in delirium. CARDIAC STABLE. A. FIB. LEUCOCYTOSIS. Plan: 1) Altered Mental Status Change status to in patient due to change in mental status and IM haldol 5mh PRN for agitation Mental Status checks Patient was going to be discharged to home and all Rx were placed in the chart Exam was unchanged. NO facial droop or extremities weakness. Discharge was cancelled 11/10 New Urine Cultures f/u Psychiatry Consult Dr. La: f/u Consider Neurology consultation based upon findings in CT Head 2) A-fib, uncontrolled Eliquis 5 mg PO 1x/day Metoprolol PRN HR >110 Cardizem drip 5mg HR >130 3) CHF history 2D Echo 11/09/16 EF 60-65%, Grade 1 diastolic dysfunction, severe Pulmonary HTN, small pericardial effusion CTA: NO PE, NO Dissection, enlarged main pulmonary artery with increased right ventricular/left ventricular ratio, pulmonary artery HTN, right ventricular dysfunction, mediastinal lymphadenopathy Cardiac Consult: Dr. Ksenia Sanches: no further cardiac f/u needed. continue with current treatment Troponin x 3 negative HOB at 45 degrees Daily Weight Dietary Consult for HF diet 4) BPH Avodart 0.5 mg PO 1x/day 5) HLD Tricor 45 mg PO HS Crestor 5 mg PO HS 6) Diabetes Metformin 1,000 mg PO 2x/day Hgb A1c 5.9 RISS ACHS 7). Hx Seizure Phenytoin 100 mg PO TID Dilantin normal 8) HTN Cozaar 50 mg PO 1x/day 9) Anemia Likely secondary to Iron Deficiency Iron 26 TIBC 461 % saturation 6L 10). Bilateral Cerumen Impaction Patient will need to have ENT remove cerumen ENT consulted peroxide drops ordered for ears 11). Mediastinal Lymphadenopathy As seen on CTA, f/u outpatient d/w Dr. Aubrey Sanches spoke with PMD Dr. Eddie Rodriguez [phone] 11/09 to confirm patient's history. Nikki Hope DO PGY1 <Jonnathan Burgos - Last Filed: 11/10/16 17:25> Objective - Vital Signs/Intake and Output Vital Signs (last 24 hours): Temp Pulse Resp BP Pulse Ox 98.8 F 124 H 20 133/80 96 11/10/16 15:10 11/10/16 15:10 11/10/16 15:10 11/10/16 15:10 11/10/16 15:10 - Medications Medications: Current Medications Amoxicillin (Amoxil 500 Mg Cap) 500 mg PO Q8H [facility] Apixaban (Eliquis) 5 mg PO BID [facility] Last Admin: 11/10/16 10:17 Dose: Not Given Benzocaine/Menthol (Cepacol Sore Throat) 1 tony MT DAILY PRN PRN Reason: Sore Throat Carbamide Peroxide (Debrox Ear Drops) 0 ml AD BID [facility] Carvedilol (Coreg) 25 mg PO BID [facility] Last Admin: 11/10/16 10:17 Dose: Not Given Diltiazem HCl (Cardizem Cd) 120 mg PO DAILY [facility] Last Admin: 11/10/16 13:27 Dose: 120 mg Famotidine (Pepcid) 40 mg PO DAILY [facility] Last Admin: 11/10/16 10:21 Dose: Not Given Fenofibrate (Tricor) 145 mg PO HS [facility] Last Admin: 11/09/16 22:31 Dose: Not Given Finasteride (Proscar) 5 mg PO DAILY [facility] Last Admin: 11/10/16 10:21 Dose: Not Given Furosemide (Lasix) 40 mg IVP DAILY [facility] Last Admin: 11/10/16 10:07 Dose: 40 mg Haloperidol (Haldol) 1 mg PO Q4H PRN PRN Reason: Agitation Haloperidol Lactate (Haldol) 1 mg IM ONCE PRN PRN Reason: Agitation Home Med (Patient's Own Drops) 1 drop OU BID [facility] Insulin Human Regular (Novolin R) 0 unit SC ACHS [facility] PRN Reason: Protocol Last Admin: 11/10/16 13:31 Dose: Not Given Lorazepam (Ativan) 1 mg IVP Q6H PRN PRN Reason: Severe agitation Losartan Potassium (Cozaar) 50 mg PO DAILY [facility] Last Admin: 11/10/16 10:17 Dose: Not Given Meclizine HCl (Antivert) 25 mg PO TID [facility] Last Admin: 11/10/16 13:40 Dose: Not Given Metformin HCl (Glucophage) 1,000 mg PO BID [facility] Last Admin: 11/10/16 10:17 Dose: Not Given Metoprolol Tartrate (Lopressor) 5 mg IVP Q1H PRN PRN Reason: Other Last Admin: 11/10/16 13:34 Dose: 5 mg Phenytoin Sodium (Dilantin) 100 mg PO TID [facility] Last Admin: 11/10/16 13:40 Dose: Not Given Pneumococcal Polyvalent Vaccine (Pneumovax 23 Vaccine) 0.5 ml IM .ONCE ONE Stop: 11/11/16 10:01 Rosuvastatin Calcium (Crestor) 5 mg PO HS [facility] Last Admin: 11/09/16 22:30 Dose: Not Given Trazodone HCl (Desyrel) 25 mg PO HS [facility] - Labs Labs: 11/10/16 11:49 11/10/16 11:49 PT 21.4 SECONDS (9.7-12.2) H 11/08/16 18:43 INR 1.8 11/08/16 18:43 APTT 40 SECONDS (21-34) H 11/08/16 18:43 Attending/Attestation - Attestation I have personally seen and examined this patient.: Yes I have fully participated in the care of the patient.: Yes I have reviewed all pertinent clinical information, including history, physical exam and plan: Yes Notes (Text): The pt is seen, chart reviewed and case discussed Consult was requested for his AMS The pt is heavily sedated at this point, so we will return. He seems to be in delirium. CARDIAC STABLE. A. FIB with RVR 110-130 due to not taking oral meds this am - now he took cardizem cd and iv metoprolol given LEUCOCYTOSIS. Plan: 1) Altered Mental Status - delerium possible due to change in location from home to hospital on baseline possible dementia. change status to inpatient today due to change in mental status and IM haldol 5mh PRN for agitation Mental Status checks Patient was going to be discharged to home and all Rx were placed in the chart Exam was unchanged. NO facial droop or extremities weakness. Discharge was cancelled 11/10 New Urine Cultures f/u Psychiatry Consult Dr. La: f/u Consider Neurology consultation based upon findings in CT Head 2) A-fib, uncontrolled Eliquis 5 mg PO 1x/day Metoprolol PRN HR >110 Cardizem drip 5mg HR >130 Cardizem PO and metoprolol po patient did not take this am due to confusion. 3) CHF history 2D Echo 11/09/16 EF 60-65%, Grade 1 diastolic dysfunction, severe Pulmonary HTN, small pericardial effusion CTA: NO PE, NO Dissection, enlarged main pulmonary artery with increased right ventricular/left ventricular ratio, pulmonary artery HTN, right ventricular dysfunction, mediastinal lymphadenopathy Cardiac Consult: Dr. Ksenia Sanches: no further cardiac f/u needed. continue with current treatment Troponin x 3 negative HOB at 45 degrees Daily Weight Dietary Consult for HF diet
[2016-11-10] MEDS ORDERED: TIMOLOL EYE OU SCH (18:00)
[2016-11-10] MEDS ORDERED: DORZOLAMIDE OU SCH (18:00)
[2016-11-10] MEDS ORDERED: Dorzolamide 2% Opht Sol 10ml OU SCH (18:00)
[2016-11-10] MEDS ORDERED: Dextrose 50% SYRINGE Inj (50 ml) IV PRN (18:18)
[2016-11-10] MEDS ORDERED: Glucagon Recombinant 1 mg Inj IM PRN (18:18)
[2016-11-10] MEDS: DORZOLAMIDE OU SCH (18:30)
[2016-11-10] MEDS: TIMOLOL EYE OU SCH (18:30)
[2016-11-10] MEDS: traZODone 25 mg Tab PO SCH (22:13)
[2016-11-11 07:20] LABS: BASO # 0.1 K/uL (0.0-0.2); BASO % 0.7 % (0.0-2.0); HEMATOCRIT 32.6 % (35.0-51.0); LYMPH # 1.3 K/uL (1.0-4.3); MEAN CELL VOLUME 79.6 fL (80.0-94.0); MEAN CORPUSCULAR HEMOGLOBIN 26.4 pg (27.0-31.0); MEAN CORPUSCULAR HGB CONC 33.2 g/dL (33.0-37.0); MEAN PLATELET VOLUME 11.2 fL (7.2-11.7); MONO % 14.3 % (0.0-10.0); NRBC % 0.1 % (0.0-2.0); PLATELET COUNT 182 K/uL (130-400); RED CELL DISTRIBUTION WIDTH 15.5 % (11.5-14.5)
[2016-11-11 08:10] LABS: CHLORIDE 101 mmol/L (98-107); POTASSIUM 3.1 mmol/L (3.6-5.2); SODIUM 145 mmol/L (132-148)
[2016-11-11 08:12] LABS: BILIRUBIN,TOTAL 2.3 mg/dL (0.2-1.3); GFR AFRICAN-AMERICAN > 60
[2016-11-11 08:13] LABS: ALB/GLOB RATIO 1.1 (1.0-2.1); ALKALINE PHOSPHATASE 50 U/L (38-126); ALT/SGPT 11 U/L (21-72); AST/SGOT 42 U/L (17-59); BLOOD UREA NITROGEN 27 mg/dL (9-20); CARBON DIOXIDE 23 mmol/L (22-30); GLUCOSE,RANDOM 108 mg/dL (75-110); TOTAL PROTEIN 7.9 g/dL (6.3-8.3)
[2016-11-11 08:14] LABS: CALCIUM 9.6 mg/dl (8.6-10.4)
[2016-11-11] MEDS: (Novolin R) Insulin Human Regular 100 units/ml vial SC SCH ×4 (08:35→22:11)
--- NOTE | 2016-11-11 09:23 | CP.PCM.PN ---
<Jose Daniel Marie - Last Filed: 11/11/16 12:09> Subjective - Date & Time of Evaluation Date of Evaluation: 11/11/16 Time of Evaluation: 12:10 - Subjective Subjective: Pt seen and examined at bedside; still confused; however does recognize family on 2nd time examining but still not at baseline as per family; unable to do rest of subjective history taking part of exam. Objective - Vital Signs/Intake and Output Vital Signs (last 24 hours): Temp Pulse Resp BP Pulse Ox 98 F 115 H 20 150/90 96 11/11/16 07:00 11/11/16 07:00 11/11/16 07:00 11/11/16 07:00 11/11/16 07:00 Intake and Output: 11/11/16 11/11/16 06:59 18:59 Intake Total 120 Balance 120 - Medications Medications: Current Medications Amoxicillin (Amoxil 500 Mg Cap) 500 mg PO Q8H [facility] Last Admin: 11/11/16 09:09 Dose: 500 mg Apixaban (Eliquis) 5 mg PO BID [facility] Last Admin: 11/10/16 18:30 Dose: Not Given Benzocaine/Menthol (Cepacol Sore Throat) 1 tony MT DAILY PRN PRN Reason: Sore Throat Carbamide Peroxide (Debrox Ear Drops) 0 ml AD BID [facility] Last Admin: 11/10/16 18:30 Dose: 5 drop Carvedilol (Coreg) 25 mg PO BID [facility] Last Admin: 11/10/16 18:30 Dose: Not Given Dextrose (Dextrose 50% Inj) 0 ml IV STAT PRN; Protocol PRN Reason: Hyglycemia Protocol Dextrose (Glutose 15) 0 gm PO ONCE PRN; Protocol PRN Reason: Hypoglycemia Protocol Diltiazem HCl (Cardizem Cd) 120 mg PO DAILY [facility] Last Admin: 11/10/16 13:27 Dose: 120 mg Famotidine (Pepcid) 40 mg PO DAILY [facility] Last Admin: 11/10/16 10:21 Dose: Not Given Fenofibrate (Tricor) 145 mg PO HS [facility] Last Admin: 11/10/16 22:13 Dose: Not Given Finasteride (Proscar) 5 mg PO DAILY [facility] Last Admin: 11/10/16 10:21 Dose: Not Given Furosemide (Lasix) 40 mg IVP DAILY [facility] Last Admin: 11/10/16 10:07 Dose: 40 mg Glucagon (Glucagen Diagnostic Kit) 0 mg IM STAT PRN; Protocol PRN Reason: Hypoglycemia Protocol Haloperidol (Haldol) 1 mg PO Q4H PRN PRN Reason: Agitation Haloperidol Lactate (Haldol) 1 mg IM ONCE PRN PRN Reason: Agitation Home Med (Patient's Own Drops) 1 drop OU BID [facility] Last Admin: 11/10/16 18:30 Dose: 1 drop Dextrose (Dextrose 5% In Water 1000 Ml) 1,000 mls @ 0 mls/hr IV .Q0M PRN; Protocol; Per Protocol PRN Reason: Hypoglycemia Protocol Insulin Human Regular (Novolin R) 0 unit SC ACHS [facility] PRN Reason: Protocol Last Admin: 11/11/16 08:35 Dose: Not Given Lorazepam (Ativan) 1 mg IVP Q6H PRN PRN Reason: Severe agitation Losartan Potassium (Cozaar) 50 mg PO DAILY [facility] Last Admin: 11/10/16 10:17 Dose: Not Given Meclizine HCl (Antivert) 25 mg PO TID [facility] Last Admin: 11/10/16 18:30 Dose: Not Given Metformin HCl (Glucophage) 1,000 mg PO BID [facility] Last Admin: 11/10/16 18:30 Dose: Not Given Metoprolol Tartrate (Lopressor) 5 mg IVP Q1H PRN PRN Reason: Other Last Admin: 11/10/16 21:00 Dose: 5 mg Phenytoin Sodium (Dilantin) 100 mg PO TID [facility] Last Admin: 11/10/16 18:30 Dose: Not Given Pneumococcal Polyvalent Vaccine (Pneumovax 23 Vaccine) 0.5 ml IM .ONCE ONE Stop: 11/11/16 10:01 Potassium Chloride (Potassium Chloride Oral Soln) 40 meq PO ONCE ONE Stop: 11/11/16 09:21 Rosuvastatin Calcium (Crestor) 5 mg PO HS [facility] Last Admin: 11/10/16 22:12 Dose: Not Given Trazodone HCl (Desyrel) 25 mg PO HS [facility] Last Admin: 11/10/16 22:13 Dose: Not Given - Labs Labs: 11/11/16 07:06 11/11/16 07:06 PT 21.4 SECONDS (9.7-12.2) H 11/08/16 18:43 INR 1.8 11/08/16 18:43 APTT 40 SECONDS (21-34) H 11/08/16 18:43 - Constitutional Appears: Non-toxic - Head Exam Head Exam: ATRAUMATIC - Eye Exam Pupil Exam: Unequal - ENT Exam ENT Exam: Mucous Membranes Moist - Neck Exam Neck Exam: Full ROM. absent: Lymphadenopathy - Respiratory Exam Respiratory Exam: Clear to Ausculation Bilateral, NORMAL BREATHING PATTERN. absent: Rales, Rhonchi, Wheezes - Cardiovascular Exam Cardiovascular Exam: Irregular Rhythm - GI/Abdominal Exam GI & Abdominal Exam: Soft, Normal Bowel Sounds - Extremities Exam Extremities Exam: Full ROM. absent: Calf Tenderness - Back Exam Back Exam: NORMAL INSPECTION. absent: CVA tenderness (L), CVA tenderness (R) - Neurological Exam Neurological Exam: Awake - Skin Skin Exam: Warm Assessment and Plan - Assessment and Plan (Free Text) Assessment: Altered Mental Status;active Change status to in patient due to change in mental status and IM haldol 5mh PRN for agitation Mental Status checks Patient was going to be discharged to home 11/10 and all Rx were placed in the chart Exam was unchanged. NO facial droop or extremities weakness. 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 Reynoso; appreciate recs f/u head CT w/ and w/o contrast A-fib; stable Eliquis 5 mg PO 1x/day Metoprolol PRN HR >110 Cardizem drip 5mg HR >130 CHF history; chronic diastolic dysfunction 2D Echo 11/09/16 EF 60-65%, Grade 1 diastolic dysfunction, severe Pulmonary HTN, small pericardial effusion CTA: NO PE, NO Dissection, enlarged main pulmonary artery with increased right ventricular/left ventricular ratio, pulmonary artery HTN, right ventricular dysfunction, mediastinal lymphadenopathy Cardiac Consult: Dr. Ksenia Sanches: no further cardiac f/u needed. continue with current treatment Troponin x 3 negative HOB at 45 degrees Daily Weight Dietary Consult for HF diet BPH; stable Avodart 0.5 mg PO 1x/day HLD; chronic Tricor 45 mg PO HS Crestor 5 mg PO HS Diabetes; chronic controlled Metformin 1,000 mg PO 2x/day Hgb A1c 5.9 RISS ACHS Hx Seizure Phenytoin 100 mg PO TID Dilantin normal HTN Cozaar 50 mg PO 1x/day Anemia; iron deficiency Likely secondary to Iron Deficiency Iron 26 TIBC 461 % saturation 6L Bilateral Cerumen Impaction; improved Patient will need to have ENT remove cerumen ENT consulted peroxide drops ordered for ears Mediastinal Lymphadenopathy As seen on CTA, f/u outpatient d/w Dr. Burgos <Jonnathan Burgos - Last Filed: 11/12/16 10:46> Objective - Vital Signs/Intake and Output Vital Signs (last 24 hours): Temp Pulse Resp BP Pulse Ox 98.8 F 126 H 20 139/79 95 11/12/16 00:15 11/12/16 00:15 11/12/16 00:15 11/12/16 09:44 11/12/16 00:15 Intake and Output: 11/12/16 11/12/16 06:59 18:59 Intake Total 480 Balance 480 - Medications Medications: Current Medications Amoxicillin (Amoxil 500 Mg Cap) 500 mg PO Q8H [facility] Last Admin: 11/12/16 09:42 Dose: 500 mg Apixaban (Eliquis) 5 mg PO BID [facility] Last Admin: 11/12/16 09:42 Dose: 5 mg Benzocaine/Menthol (Cepacol Sore Throat) 1 tony MT DAILY PRN PRN Reason: Sore Throat Last Admin: 11/11/16 22:13 Dose: 1 tony Carbamide Peroxide (Debrox Ear Drops) 0 ml AD BID [facility] Last Admin: 11/12/16 09:46 Dose: 5 drop Carvedilol (Coreg) 25 mg PO BID [facility] Last Admin: 11/12/16 09:44 Dose: 25 mg Dextrose (Dextrose 50% Inj) 0 ml IV STAT PRN; Protocol PRN Reason: Hyglycemia Protocol Dextrose (Glutose 15) 0 gm PO ONCE PRN; Protocol PRN Reason: Hypoglycemia Protocol Digoxin (Lanoxin) 0.125 mg PO DAILY@1800 [facility] Last Admin: 11/11/16 18:57 Dose: 0.125 mg Diltiazem HCl (Cardizem Cd) 120 mg PO DAILY [facility] Last Admin: 11/12/16 09:43 Dose: 120 mg Famotidine (Pepcid) 40 mg PO DAILY [facility] Last Admin: 11/12/16 09:42 Dose: 40 mg Fenofibrate (Tricor) 145 mg PO HS [facility] Last Admin: 11/11/16 22:12 Dose: 145 mg Finasteride (Proscar) 5 mg PO DAILY [facility] Last Admin: 11/12/16 09:42 Dose: 5 mg Furosemide (Lasix) 40 mg IVP DAILY [facility] Last Admin: 11/12/16 09:42 Dose: 40 mg Glucagon (Glucagen Diagnostic Kit) 0 mg IM STAT PRN; Protocol PRN Reason: Hypoglycemia Protocol Haloperidol (Haldol) 1 mg PO Q4H PRN PRN Reason: Agitation Haloperidol Lactate (Haldol) 1 mg IM ONCE PRN PRN Reason: Agitation Home Med (Patient's Own Drops) 1 drop OU BID [facility] Last Admin: 11/12/16 09:47 Dose: 1 drop Dextrose (Dextrose 5% In Water 1000 Ml) 1,000 mls @ 0 mls/hr IV .Q0M PRN; Protocol; Per Protocol PRN Reason: Hypoglycemia Protocol Insulin Human Regular (Novolin R) 0 unit SC [facility] PRN Reason: Protocol Last Admin: 11/12/16 08:05 Dose: Not Given Lorazepam (Ativan) 1 mg IVP Q6H PRN PRN Reason: Severe agitation Losartan Potassium (Cozaar) 50 mg PO DAILY [facility] Last Admin: 11/12/16 09:46 Dose: 50 mg Meclizine HCl (Antivert) 25 mg PO TID [facility] Last Admin: 11/12/16 09:46 Dose: 25 mg Metformin HCl (Glucophage) 1,000 mg PO BID [facility] Last Admin: 11/12/16 09:43 Dose: 1,000 mg Metoprolol Tartrate (Lopressor) 5 mg IVP Q1H PRN PRN Reason: Other Last Admin: 11/12/16 03:01 Dose: 5 mg Phenytoin Sodium (Dilantin) 100 mg PO TID [facility] Last Admin: 11/12/16 09:43 Dose: 100 mg Rosuvastatin Calcium (Crestor) 5 mg PO [facility] Last Admin: 11/11/16 22:12 Dose: 5 mg Trazodone HCl (Desyrel) 25 mg PO [facility] Last Admin: 11/11/16 22:12 Dose: 25 mg - Labs Labs: 11/12/16 09:05 11/12/16 09:05 PT 21.4 SECONDS (9.7-12.2) H 11/08/16 18:43 INR 1.8 11/08/16 18:43 APTT 40 SECONDS (21-34) H 11/08/16 18:43 Attending/Attestation - Attestation I have personally seen and examined this patient.: Yes I have fully participated in the care of the patient.: Yes I have reviewed all pertinent clinical information, including history, physical exam and plan: Yes Notes (Text): Altered Mental Status;active Change status to in patient due to change in mental status likely from dementia and change in location now improved today also complicated by hard of hearing and blindness IM haldol 5mh PRN for agitation Mental Status checks Patient was going to be discharged to home 11/10 and all Rx were placed in the chart Exam was unchanged. NO facial droop or extremities weakness. 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 Reynoso; appreciate recs f/u head CT A-fib; stable Eliquis 5 mg PO 1x/day Metoprolol PRN HR >110 oral meds now being taken by patient improved CHF history; chronic diastolic dysfunction 2D Echo 11/09/16 EF 60-65%, Grade 1 diastolic dysfunction, severe Pulmonary HTN, small pericardial effusion CTA: NO PE, NO Dissection, enlarged main pulmonary artery with increased right ventricular/left ventricular ratio, pulmonary artery HTN, right ventricular dysfunction, mediastinal lymphadenopathy Cardiac Consult: Dr. Ksenia Sanches: no further cardiac f/u needed. continue with current treatment Troponin x 3 negative HOB at 45 degrees Daily Weight Dietary Consult for HF diet BPH; stable Avodart 0.5 mg PO 1x/day
[2016-11-11 09:39] LABS: NEUTROPHIL 83 % (50-75); TOTAL CELLS COUNTED 100
[2016-11-11 09:44] LABS: LARGE PLATELETS PRESENT
[2016-11-11] MEDS ORDERED: Potassium Chloride 20 mEq/15 ml LIQ UD PO ONE (09:45)
[2016-11-11] MEDS ORDERED: Pneumococcal 23-Valent Vaccine IM ONE (10:00)
[2016-11-11] MEDS: diltiaZEM 120 mg/24 Hours CD Cap PO SCH (10:29)
[2016-11-11] MEDS: DORZOLAMIDE OU SCH ×2 (10:33→18:58)
[2016-11-11] MEDS: Metoprolol 1 mg/ml Inj IVP PRN (10:33)
[2016-11-11] MEDS: TIMOLOL EYE OU SCH ×2 (10:33→18:58)
--- NOTE | 2016-11-11 11:00 | CP.PCM.PN ---
Subjective - Date & Time of Evaluation Date of Evaluation: 11/11/16 Time of Evaluation: 10:58 - Subjective Subjective: MORE AWAKE. APPETITE POOR. HYPOKALEMIA. BUN 27. CREAR 1.2 HR 120 ON CARDIZEM AND COREG. BP WNL. CT SCAN LACUNAR INFARCT. Objective - Vital Signs/Intake and Output Vital Signs (last 24 hours): Temp Pulse Resp BP Pulse Ox 98 F 115 H 20 130/77 96 11/11/16 07:00 11/11/16 07:00 11/11/16 07:00 11/11/16 10:33 11/11/16 07:00 Intake and Output: 11/11/16 11/11/16 06:59 18:59 Intake Total 120 Balance 120 - Medications Medications: Current Medications Amoxicillin (Amoxil 500 Mg Cap) 500 mg PO Q8H [facility] Last Admin: 11/11/16 09:09 Dose: 500 mg Apixaban (Eliquis) 5 mg PO BID [facility] Last Admin: 11/11/16 10:29 Dose: 5 mg Benzocaine/Menthol (Cepacol Sore Throat) 1 tony MT DAILY PRN PRN Reason: Sore Throat Carbamide Peroxide (Debrox Ear Drops) 0 ml AD BID [facility] Last Admin: 11/11/16 10:34 Dose: 5 drop Carvedilol (Coreg) 25 mg PO BID [facility] Last Admin: 11/11/16 10:29 Dose: 25 mg Dextrose (Dextrose 50% Inj) 0 ml IV STAT PRN; Protocol PRN Reason: Hyglycemia Protocol Dextrose (Glutose 15) 0 gm PO ONCE PRN; Protocol PRN Reason: Hypoglycemia Protocol Diltiazem HCl (Cardizem Cd) 120 mg PO DAILY [facility] Last Admin: 11/11/16 10:29 Dose: 120 mg Famotidine (Pepcid) 40 mg PO DAILY [facility] Last Admin: 11/11/16 10:31 Dose: 40 mg Fenofibrate (Tricor) 145 mg PO HS [facility] Last Admin: 11/10/16 22:13 Dose: Not Given Finasteride (Proscar) 5 mg PO DAILY [facility] Last Admin: 11/11/16 10:31 Dose: 5 mg Furosemide (Lasix) 40 mg IVP DAILY [facility] Last Admin: 11/11/16 10:33 Dose: 40 mg Glucagon (Glucagen Diagnostic Kit) 0 mg IM STAT PRN; Protocol PRN Reason: Hypoglycemia Protocol Haloperidol (Haldol) 1 mg PO Q4H PRN PRN Reason: Agitation Haloperidol Lactate (Haldol) 1 mg IM ONCE PRN PRN Reason: Agitation Home Med (Patient's Own Drops) 1 drop OU BID [facility] Last Admin: 11/11/16 10:33 Dose: 1 drop Dextrose (Dextrose 5% In Water 1000 Ml) 1,000 mls @ 0 mls/hr IV .Q0M PRN; Protocol; Per Protocol PRN Reason: Hypoglycemia Protocol Insulin Human Regular (Novolin R) 0 unit SC ACHS [facility] PRN Reason: Protocol Last Admin: 11/11/16 08:35 Dose: Not Given Lorazepam (Ativan) 1 mg IVP Q6H PRN PRN Reason: Severe agitation Losartan Potassium (Cozaar) 50 mg PO DAILY [facility] Last Admin: 11/11/16 10:29 Dose: 50 mg Meclizine HCl (Antivert) 25 mg PO TID [facility] Last Admin: 11/10/16 18:30 Dose: Not Given Metformin HCl (Glucophage) 1,000 mg PO BID [facility] Last Admin: 11/11/16 10:31 Dose: 1,000 mg Metoprolol Tartrate (Lopressor) 5 mg IVP Q1H PRN PRN Reason: Other Last Admin: 11/11/16 10:33 Dose: 5 mg Phenytoin Sodium (Dilantin) 100 mg PO TID [facility] Last Admin: 11/11/16 10:31 Dose: 100 mg Rosuvastatin Calcium (Crestor) [address] [facility] Last Admin: 11/10/16 22:12 Dose: Not Given Trazodone HCl (Desyrel) [address] [facility] Last Admin: 11/10/16 22:13 Dose: Not Given - Labs Labs: 11/11/16 07:06 11/11/16 07:06 PT 21.4 SECONDS (9.7-12.2) H 11/08/16 18:43 INR 1.8 11/08/16 18:43 APTT 40 SECONDS (21-34) H 11/08/16 18:43 - Constitutional Appears: No Acute Distress, Chronically Ill - Eye Exam Eye Exam: Normal appearance, PERRL - ENT Exam ENT Exam: Mucous Membranes Moist, Normal Exam - Respiratory Exam Respiratory Exam: Decreased Breath Sounds, NORMAL BREATHING PATTERN - Cardiovascular Exam Cardiovascular Exam: Irregular Rhythm, +S1, +S2 - GI/Abdominal Exam GI & Abdominal Exam: Soft, Normal Bowel Sounds - Extremities Exam Extremities Exam: Full ROM, Normal Capillary Refill, Normal Inspection. absent : Joint Swelling, Pedal Edema - Neurological Exam Neurological Exam: Alert, Awake, CN II-XII Intact, Normal Gait, Oriented x3 Assessment and Plan - Assessment and Plan (Free Text) Assessment: CHF A.FIB. RVR. Plan: CT PRESENT TREATMENT. ADD DIGOXIN PO.
[2016-11-11] MEDS ORDERED: Digoxin 125 mcg (0.125 mg) Tab PO ONE (11:15)
[2016-11-11] MEDS ORDERED: Iodixanol 320 MG/ML 100 ML BOTTLE IV ONE (14:26)
--- NOTE | 2016-11-11 15:37 | CT ---
PROCEDURE: CT scan brain dated 11/11/2016. HISTORY: AMS COMPARISON: Comparison made with CT of the brain dated 11/09/2016 TECHNIQUE: Axial computed tomography images were obtained through the head/brain with and without intravenous contrast enhancement. Contrast dose: 100 cc Visipaque 320 contrast Radiation dose: Total exam DLP = 1991.42 mGy-cm. This CT exam was performed using one or more of the following dose reduction techniques: Automated exposure control, adjustment of the mA and/or kV according to patient size, and/or use of iterative reconstruction technique. FINDINGS: HEMORRHAGE: No material acute parenchymal, subarachnoid or extra-axial hemorrhage. BRAIN: Mild chronic periventricular white matter ischemic changes are felt to be present. Re- demonstrated are localized encephalomalacia changes right frontal lobe near the anterior margin of a right temporoparietal craniotomy defect. . . . Again noted are somewhat linear irregular fairly extensive extra-axial calcifications over the right frontoparietal convexity extending inferiorly to level near the inferior margin of the craniotomy defect. 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 Clinical correlation with history recommended to address all of these findings Calcifications along the right frontoparietal lobes suggesting residua of chronic calcified subdural hematoma. It is unclear whether some of the at interhemispheric calcification on represents dural calcification versus residua of calcified subdural sequela as well. There are no enhancing parenchymal nor extra-axial masses or collections seen. No evidence of unusual meningeal enhancement. Moderate generalized volume loss. Re- demonstrated is partially empty sella. VENTRICLES: No obstructive hydrocephalus CALVARIUM: Calvarium is otherwise intact not withstanding aforementioned right sided temporoparietal craniotomy defect. SINUSES: Again noted are mild-moderate diffuse pansinusitis with apparent fluid levels both maxillary antra right larger than left. MASTOID AIR CELLS: Partial opacification right mastoid air complex again noted. OTHER FINDINGS: None. Buckle procedure right globe again seen with a metallic screw like structure projecting into the lateral margin right globe ; rule out eyelid weight). Bilateral cataract surgical changes also again noted. IMPRESSION: No evidence of acute intracranial hemorrhage. Again noted are somewhat linear irregular fairly extensive extra-axial calcifications over the right frontoparietal convexity extending from the vertex inferiorly to level near the inferior margin of the craniotomy defect. 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 Clinical correlation with history recommended to address all of these findings. It is unclear whether some of the at interhemispheric calcification on represents dural calcification versus residua of calcified subdural sequela as well. No enhancing masses or collections. No evidence of unusual meningeal enhancement. Localized encephalomalacia changes right frontal lobe unchanged. Mild chronic white matter ischemic changes. Stable appearing right temporoparietal craniotomy defect. Moderate generalized volume loss. Pansinusitis changes with fluid levels both maxillary antra right larger than left See above discussion for additional details and findings.
--- NOTE | 2016-11-11 16:40 | CP.PCM.CON ---
History of Present Illness - History of Present Illness History of Present Illness: Mr. Fuentes is an 86-year-old man with multiple medical co-morbidities, including atrial fibrillation, previous subdural hemorrhage, previous ischemic stroke, CAD , HTN, DM, who presented initially due to increased chest pain, shortness of breath. 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 He has some baseline dementia as well and is a poor historian. He denied new weakness, sensory changes, visual changes, speech difficulty or worsening gait. A CT scan of the head was done and showed the chronic appearing right frontal lobe infarct, but no acute findings. Review of Systems - Review of Systems All systems: reviewed and no additional remarkable complaints except Past Patient History - Past Medical History & Family History Past Medical History?: Yes - Past Social History Smoking Status: Never Smoked - CARDIAC Hx Congestive Heart Failure: Yes Hx Hypercholesterolemia: Yes Hx Hypertension: Yes - NEUROLOGICAL Hx Seizures: Yes - ENDOCRINE/METABOLIC Hx Diabetes Mellitus Type 1: Yes - MUSCULOSKELETAL/RHEUMATOLOGICAL Hx Falls: Yes - PSYCHIATRIC Hx Substance Use: No - SURGICAL HISTORY Hx Eye Surgery: Yes (Both) - ANESTHESIA Hx Anesthesia: Yes Hx Anesthesia Reactions: No Meds Home Medications: Home Medication List Medication Instructions Recorded Confirmed Type Apixaban [Eliquis] 5 mg PO BID #60 tab 11/09/16 Rx Carvedilol [Coreg] 25 mg PO BID 30 Days tab 11/09/16 Rx Dutasteride [Avodart] 0.5 mg PO DAILY #30 capsule 11/09/16 Rx Famotidine [Pepcid] 40 mg PO DAILY 30 Days tab 11/09/16 Rx Fenofibrate [Tricor] 1 tab PO DAILY 30 Days tab 11/09/16 Rx Finasteride [Proscar] 5 mg PO DAILY 30 Days tab 11/09/16 Rx Furosemide [Lasix] 20 mg PO DAILY 30 Days tab 11/09/16 Rx Losartan [Cozaar] 50 mg PO DAILY 30 Days tab 11/09/16 Rx MetFORMIN [glucoPHAGE] 1,000 mg PO BID 30 Days tab 11/09/16 Rx Phenytoin Sodium Extended 100 mg PO TID #90 capsule 11/09/16 Rx Phenytoin, Extended [Dilantin] 100 mg PO TID 30 Days #0 cer 11/09/16 Rx Rosuvastatin Calcium [Crestor] 5 mg PO HS 30 Days tab 11/09/16 Rx Simvastatin 20 mg PO HS 30 Days tablet 11/09/16 Rx Allergies/Adverse Reactions: Allergies Allergy/AdvReac Type Severity Reaction Status Date / Time No Known Allergies Allergy Verified 11/08/16 16:41 - Medications Medications: Current Medications Amoxicillin (Amoxil 500 Mg Cap) 500 mg PO Q8H [facility] Last Admin: 11/11/16 09:09 Dose: 500 mg Apixaban (Eliquis) 5 mg PO BID [facility] Last Admin: 11/11/16 10:29 Dose: 5 mg Benzocaine/Menthol (Cepacol Sore Throat) 1 tony MT DAILY PRN PRN Reason: Sore Throat Carbamide Peroxide (Debrox Ear Drops) 0 ml AD BID [facility] Last Admin: 11/11/16 10:34 Dose: 5 drop Carvedilol (Coreg) 25 mg PO BID [facility] Last Admin: 11/11/16 10:29 Dose: 25 mg Dextrose (Dextrose 50% Inj) 0 ml IV STAT PRN; Protocol PRN Reason: Hyglycemia Protocol Dextrose (Glutose 15) 0 gm PO ONCE PRN; Protocol PRN Reason: Hypoglycemia Protocol Digoxin (Lanoxin) 0.125 mg PO DAILY@1800 [facility] Diltiazem HCl (Cardizem Cd) 120 mg PO DAILY [facility] Last Admin: 11/11/16 10:29 Dose: 120 mg Famotidine (Pepcid) 40 mg PO DAILY [facility] Last Admin: 11/11/16 10:31 Dose: 40 mg Fenofibrate (Tricor) 145 mg PO HS [facility] Last Admin: 11/10/16 22:13 Dose: Not Given Finasteride (Proscar) 5 mg PO DAILY [facility] Last Admin: 11/11/16 10:31 Dose: 5 mg Furosemide (Lasix) 40 mg IVP DAILY [facility] Last Admin: 11/11/16 10:33 Dose: 40 mg Glucagon (Glucagen Diagnostic Kit) 0 mg IM STAT PRN; Protocol PRN Reason: Hypoglycemia Protocol Haloperidol (Haldol) 1 mg PO Q4H PRN PRN Reason: Agitation Haloperidol Lactate (Haldol) 1 mg IM ONCE PRN PRN Reason: Agitation Home Med (Patient's Own Drops) 1 drop OU BID [facility] Last Admin: 11/11/16 10:33 Dose: 1 drop Dextrose (Dextrose 5% In Water 1000 Ml) 1,000 mls @ 0 mls/hr IV .Q0M PRN; Protocol; Per Protocol PRN Reason: Hypoglycemia Protocol Insulin Human Regular (Novolin R) 0 unit SC ACHS [facility] PRN Reason: Protocol Last Admin: 11/11/16 12:09 Dose: Not Given Lorazepam (Ativan) 1 mg IVP Q6H PRN PRN Reason: Severe agitation Losartan Potassium (Cozaar) 50 mg PO DAILY [facility] Last Admin: 11/11/16 10:29 Dose: 50 mg Meclizine HCl (Antivert) 25 mg PO TID [facility] Last Admin: 11/11/16 14:35 Dose: 25 mg Metformin HCl (Glucophage) 1,000 mg PO BID [facility] Last Admin: 11/11/16 10:31 Dose: 1,000 mg Metoprolol Tartrate (Lopressor) 5 mg IVP Q1H PRN PRN Reason: Other Last Admin: 11/11/16 10:33 Dose: 5 mg Phenytoin Sodium (Dilantin) 100 mg PO TID [facility] Last Admin: 11/11/16 14:36 Dose: 100 mg Rosuvastatin Calcium (Crestor) 5 mg PO [facility] Last Admin: 11/10/16 22:12 Dose: Not Given Trazodone HCl (Desyrel) 25 mg PO [facility] Last Admin: 11/10/16 22:13 Dose: Not Given Physical Exam - Constitutional Appears: Cachectic - Head Exam Head Exam: ATRAUMATIC, NORMAL INSPECTION, NORMOCEPHALIC - Eye Exam Eye Exam: EOMI, Normal appearance, PERRL - ENT Exam ENT Exam: Mucous Membranes Moist, Normal Exam - Neck Exam Neck exam: Positive for: Normal Inspection - Respiratory Exam Respiratory Exam: Clear to Auscultation Bilateral, NORMAL BREATHING PATTERN - Cardiovascular Exam Cardiovascular Exam: REGULAR RHYTHM, +S1, +S2 - GI/Abdominal Exam GI & Abdominal Exam: Normal Bowel Sounds, Soft. absent: Tenderness - Rectal Exam Rectal Exam: Deferred - Extremities Exam Extremities exam: Positive for: normal inspection - Back Exam Back exam: NORMAL INSPECTION - Neurological Exam Neurological exam: Abnormal Gait, Altered, CN II-XII Intact, Reflexes Normal - Expanded Neurological Exam Expanded Patient oriented to: person, place, time Cranial nerves: EOM's Intact: Normal, Facial Sensation: Normal Ataxia: No Cerebellar Function: Finger to Nose: Normal Upper motor neuron: Babinski Sign: Normal Sensory exam: Lower Extremity Light Touch: Normal, Lower Extremity Pin Prick: Normal, Upper Extremity Light Touch: Normal, Upper Extremity Pin Prick: Normal Neuro motor strength exam: Left Upper Extremity: 4, Right Upper Extremity: 4, Left Lower Extremity: 3, Right Lower Extremity: 3 DTR: Achilles Tendon Left: 2+, Achilles Tendon Right: 2+, Bicep Left: 2+, Bicep Right: 2+, Brachioradialis Left: 2+, Brachioradialis Right: 2+, Patellar Left: 2 +, Patellar Right: 2+, Tricep Left: 2+, Tricep Right: 2+ - Psychiatric Exam Psychiatric exam: Normal Affect, Normal Mood - Skin Skin Exam: Dry, Intact, Normal Color, Warm Results - Vital Signs Recent Vital Signs: Last Vital Signs Temp 98 F 11/11/16 07:00 Pulse 117 H 11/11/16 07:58 Resp 20 11/11/16 07:00 BP 130/77 11/11/16 10:33 Pulse Ox 96 11/11/16 07:00 - Labs Result Diagrams: 11/11/16 07:06 11/11/16 07:06 Labs: Laboratory Results - last 24 hr 11/10/16 11/11/16 11/11/16 17:54 06:42 07:06 WBC 14.0 H RBC 4.10 L Hgb 10.8 L Hct 32.6 L MCV 79.6 L MCH 26.4 L MCHC 33.2 RDW 15.5 H Plt Count 182 MPV 11.2 Neut % (Auto) 76.0 H Lymph % (Auto) 9.0 L [place] % (Auto) 14.3 H Eos % (Auto) 0.0 Baso % (Auto) 0.7 Neut # 10.7 H Lymph # 1.3 [place] # 2.0 H Eos # 0.0 Baso # 0.1 Neutrophils % (Manual) 83 H Band Neutrophils % 2 Lymphocytes % (Manual) 7 L Monocytes % (Manual) 8 Platelet Estimate Normal Large Platelets Present Polychromasia Slight Hypochromasia (manual) Slight Poikilocytosis (manual Slight Anisocytosis (manual) Slight Tear Drop Cells Slight Ovalocytes Slight Sodium Potassium Chloride Carbon Dioxide Anion Gap BUN Creatinine Est GFR ( Amer) Est GFR (Non-Af Amer) POC Glucose (mg/dL) 125 H Random Glucose Calcium Total Bilirubin AST ALT Alkaline Phosphatase Total Creatine Kinase 471 H CK-MB (Mass) 1.48 Troponin I, Quant 0.0850 Total Protein Albumin Globulin Albumin/Globulin Ratio 11/11/16 11/11/16 07:06 11:57 WBC RBC Hgb Hct MCV MCH MCHC RDW Plt Count MPV Neut % (Auto) Lymph % (Auto) [place] % (Auto) Eos % (Auto) Baso % (Auto) Neut # Lymph # [place] # Eos # Baso # Neutrophils % (Manual) Band Neutrophils % Lymphocytes % (Manual) Monocytes % (Manual) Platelet Estimate Large Platelets Polychromasia Hypochromasia (manual) Poikilocytosis (manual Anisocytosis (manual) Tear Drop Cells Ovalocytes Sodium 145 Potassium 3.1 L Chloride 101 Carbon Dioxide 23 Anion Gap 25 H BUN 27 H Creatinine 1.2 Est GFR ( Amer) > 60 Est GFR (Non-Af Amer) 57 POC Glucose (mg/dL) 122 H Random Glucose 108 Calcium 9.6 Total Bilirubin 2.3 H AST 42 ALT 11 L D Alkaline Phosphatase 50 Total Creatine Kinase CK-MB (Mass) Troponin I, Quant Total Protein 7.9 Albumin 4.1 Globulin 3.8 Albumin/Globulin Ratio 1.1 Assessment & Plan (1) Chronic ischemic right MCA stroke Assessment and Plan: The patient does not appear to have any new focal neurologic deficits and the CT of the head is consistent with chronic right frontal ischemic stroke. The patient is on Eliquis due to the presence of atrial fibrillation for secondary stroke prevention. He is also on Crestor. I recommend continuing the current medications and consulting with PT/OT for deconditioning. Treat underlying infectious etiology. Thank you. Status: Chronic Priority: Medium
[2016-11-11] MEDS: Digoxin 125 mcg (0.125 mg) Tab PO SCH (18:57)
[2016-11-11] MEDS: traZODone 25 mg Tab PO SCH (22:12)
[2016-11-12] MEDS: Metoprolol 1 mg/ml Inj IVP PRN (03:01)
[2016-11-12] MEDS: (Novolin R) Insulin Human Regular 100 units/ml vial SC SCH ×4 (08:05→21:17)
[2016-11-12 09:16] LABS: BASO # 0.1 K/uL (0.0-0.2); EOS % 0.4 % (0.0-4.0); HEMATOCRIT 32.7 % (35.0-51.0); LYMPH # 1.3 K/uL (1.0-4.3); LYMPH % 10.7 % (20.0-40.0); MEAN CELL VOLUME 80.4 fL (80.0-94.0); MEAN CORPUSCULAR HEMOGLOBIN 26.5 pg (27.0-31.0); MEAN CORPUSCULAR HGB CONC 32.9 g/dL (33.0-37.0); MEAN PLATELET VOLUME 10.9 fL (7.2-11.7); MONO # 1.5 K/uL (0.0-0.8); MONO % 12.3 % (0.0-10.0); WHITE BLOOD COUNT 12.4 K/uL (4.8-10.8)
[2016-11-12 09:32] LABS: CHLORIDE 98 mmol/L (98-107); POTASSIUM 3.6 mmol/L (3.6-5.2); SODIUM 141 mmol/L (132-148)
[2016-11-12 09:34] LABS: AST/SGOT 44 U/L (17-59); BILIRUBIN,TOTAL 1.6 mg/dL (0.2-1.3); CARBON DIOXIDE 25 mmol/L (22-30); GFR AFRICAN-AMERICAN > 60; TOTAL PROTEIN 7.7 g/dL (6.3-8.3)
[2016-11-12 09:35] LABS: ALKALINE PHOSPHATASE 37 U/L (38-126); ALT/SGPT 19 U/L (21-72); BLOOD UREA NITROGEN 32 mg/dL (9-20); CALCIUM 9.4 mg/dl (8.6-10.4); GLUCOSE,RANDOM 115 mg/dL (75-110)
[2016-11-12] MEDS: diltiaZEM 120 mg/24 Hours CD Cap PO SCH (09:43)
[2016-11-12] MEDS: DORZOLAMIDE OU SCH ×2 (09:47→17:29)
[2016-11-12] MEDS: TIMOLOL EYE OU SCH ×2 (09:47→17:29)
--- NOTE | 2016-11-12 11:14 | CP.PCM.PN ---
<Jose Daniel Marie - Last Filed: 11/12/16 13:20> Subjective - Date & Time of Evaluation Date of Evaluation: 11/12/16 Time of Evaluation: 11:13 - Subjective Subjective: patient seen and examined at bedside this AM; seems more oriented than previous but still not completely oriented to person place and time. unable to properly engage in subjective history taking portion of exam. Objective - Vital Signs/Intake and Output Vital Signs (last 24 hours): Temp Pulse Resp BP Pulse Ox 98.8 F 126 H 20 139/79 95 11/12/16 00:15 11/12/16 00:15 11/12/16 00:15 11/12/16 09:44 11/12/16 00:15 Intake and Output: 11/12/16 11/12/16 06:59 18:59 Intake Total 480 Balance 480 - Medications Medications: Current Medications Amoxicillin (Amoxil 500 Mg Cap) 500 mg PO Q8H [facility] Last Admin: 11/12/16 09:42 Dose: 500 mg Apixaban (Eliquis) 5 mg PO BID [facility] Last Admin: 11/12/16 09:42 Dose: 5 mg Benzocaine/Menthol (Cepacol Sore Throat) 1 tony MT DAILY PRN PRN Reason: Sore Throat Last Admin: 11/11/16 22:13 Dose: 1 tony Carbamide Peroxide (Debrox Ear Drops) 0 ml AD BID [facility] Last Admin: 11/12/16 09:46 Dose: 5 drop Carvedilol (Coreg) 25 mg PO BID [facility] Last Admin: 11/12/16 09:44 Dose: 25 mg Cephalexin Monohydrate (Keflex) 500 mg PO Q12H [facility] Dextrose (Dextrose 50% Inj) 0 ml IV STAT PRN; Protocol PRN Reason: Hyglycemia Protocol Dextrose (Glutose 15) 0 gm PO ONCE PRN; Protocol PRN Reason: Hypoglycemia Protocol Digoxin (Lanoxin) 0.125 mg PO DAILY@1800 [facility] Last Admin: 11/11/16 18:57 Dose: 0.125 mg Diltiazem HCl (Cardizem Cd) 120 mg PO DAILY [facility] Last Admin: 11/12/16 09:43 Dose: 120 mg Famotidine (Pepcid) 40 mg PO DAILY [facility] Last Admin: 11/12/16 09:42 Dose: 40 mg Fenofibrate (Tricor) 145 mg PO HS [facility] Last Admin: 11/11/16 22:12 Dose: 145 mg Finasteride (Proscar) 5 mg PO DAILY [facility] Last Admin: 11/12/16 09:42 Dose: 5 mg Furosemide (Lasix) 40 mg IVP DAILY [facility] Last Admin: 11/12/16 09:42 Dose: 40 mg Glucagon (Glucagen Diagnostic Kit) 0 mg IM STAT PRN; Protocol PRN Reason: Hypoglycemia Protocol Haloperidol (Haldol) 1 mg PO Q4H PRN PRN Reason: Agitation Haloperidol Lactate (Haldol) 1 mg IM ONCE PRN PRN Reason: Agitation Home Med (Patient's Own Drops) 1 drop OU BID [facility] Last Admin: 11/12/16 09:47 Dose: 1 drop Dextrose (Dextrose 5% In Water 1000 Ml) 1,000 mls @ 0 mls/hr IV .Q0M PRN; Protocol; Per Protocol PRN Reason: Hypoglycemia Protocol Insulin Human Regular (Novolin R) 0 unit SC ACHS [facility] PRN Reason: Protocol Last Admin: 11/12/16 08:05 Dose: Not Given Lorazepam (Ativan) 1 mg IVP Q6H PRN PRN Reason: Severe agitation Losartan Potassium (Cozaar) 50 mg PO DAILY [facility] Last Admin: 11/12/16 09:46 Dose: 50 mg Meclizine HCl (Antivert) 25 mg PO TID [facility] Last Admin: 11/12/16 09:46 Dose: 25 mg Metformin HCl (Glucophage) 1,000 mg PO BID [facility] Last Admin: 11/12/16 09:43 Dose: 1,000 mg Metoprolol Tartrate (Lopressor) 5 mg IVP Q1H PRN PRN Reason: Other Last Admin: 11/12/16 03:01 Dose: 5 mg Phenytoin Sodium (Dilantin) 100 mg PO TID [facility] Last Admin: 11/12/16 09:43 Dose: 100 mg Rosuvastatin Calcium (Crestor) 5 mg PO [facility] Last Admin: 11/11/16 22:12 Dose: 5 mg Trazodone HCl (Desyrel) 25 mg PO HS [facility] Last Admin: 11/11/16 22:12 Dose: 25 mg - Labs Labs: 11/12/16 09:05 11/12/16 09:05 PT 21.4 SECONDS (9.7-12.2) H 11/08/16 18:43 INR 1.8 11/08/16 18:43 APTT 40 SECONDS (21-34) H 11/08/16 18:43 - Constitutional Appears: Non-toxic, No Acute Distress - Head Exam Head Exam: ATRAUMATIC - Eye Exam Eye Exam: absent: Scleral icterus - ENT Exam ENT Exam: Mucous Membranes Moist - Neck Exam Neck Exam: Full ROM. absent: Lymphadenopathy - Respiratory Exam Respiratory Exam: Clear to Ausculation Bilateral. absent: Rales - Cardiovascular Exam Cardiovascular Exam: Irregular Rhythm, +S1, +S2. absent: Tachycardia, REGULAR RHYTHM - GI/Abdominal Exam GI & Abdominal Exam: Soft, Normal Bowel Sounds - Rectal Exam Rectal Exam: Deferred - Extremities Exam Extremities Exam: Full ROM. absent: Calf Tenderness - Back Exam Back Exam: absent: CVA tenderness (L), CVA tenderness (R) - Neurological Exam Neurological Exam: Awake - Skin Skin Exam: Warm Assessment and Plan - Assessment and Plan (Free Text) Assessment: Altered Mental Status; stable Change status to in patient due to change in mental status and IM haldol 5mh PRN for agitation Mental Status checks Patient was going to be discharged to home 11/10 and all Rx were placed in the chart Exam was unchanged. NO facial droop or extremities weakness. 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 Reynoso; appreciate recs; stats to continue current management the f/u head CT shows chronic changes only A-fib; stable Eliquis 5 mg PO 1x/day Metoprolol PRN HR >110 Cardizem drip 5mg HR >130 CHF history; chronic diastolic dysfunction 2D Echo 11/09/16 EF 60-65%, Grade 1 diastolic dysfunction, severe Pulmonary HTN, small pericardial effusion CTA: NO PE, NO Dissection, enlarged main pulmonary artery with increased right ventricular/left ventricular ratio, pulmonary artery HTN, right ventricular dysfunction, mediastinal lymphadenopathy Cardiac Consult: Dr. Ksenia Sanches: no further cardiac f/u needed. 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 Burgos <Jonnathan Burgos - Last Filed: 11/12/16 14:18> Objective - Vital Signs/Intake and Output Vital Signs (last 24 hours): Temp Pulse Resp BP Pulse Ox 98.8 F 109 H 20 139/79 95 11/12/16 00:15 11/12/16 09:00 11/12/16 00:15 11/12/16 09:44 11/12/16 00:15 Intake and Output: 11/12/16 11/12/16 06:59 18:59 Intake Total 480 Balance 480 - Medications Medications: Current Medications Amoxicillin (Amoxil 500 Mg Cap) 500 mg PO Q8H [facility] Last Admin: 11/12/16 09:42 Dose: 500 mg Apixaban (Eliquis) 5 mg PO BID [facility] Last Admin: 11/12/16 09:42 Dose: 5 mg Benzocaine/Menthol (Cepacol Sore Throat) 1 tony MT DAILY PRN PRN Reason: Sore Throat Last Admin: 11/11/16 22:13 Dose: 1 tony Carbamide Peroxide (Debrox Ear Drops) 0 ml AD BID [facility] Last Admin: 11/12/16 09:46 Dose: 5 drop Carvedilol (Coreg) 25 mg PO BID [facility] Last Admin: 11/12/16 09:44 Dose: 25 mg Cephalexin Monohydrate (Keflex) 500 mg PO Q12H [facility] Dextrose (Dextrose 50% Inj) 0 ml IV STAT PRN; Protocol PRN Reason: Hyglycemia Protocol Dextrose (Glutose 15) 0 gm PO ONCE PRN; Protocol PRN Reason: Hypoglycemia Protocol Digoxin (Lanoxin) 0.125 mg PO DAILY@1800 [facility] Last Admin: 11/11/16 18:57 Dose: 0.125 mg Diltiazem HCl (Cardizem Cd) 120 mg PO DAILY [facility] Last Admin: 11/12/16 09:43 Dose: 120 mg Famotidine (Pepcid) 40 mg PO DAILY [facility] Last Admin: 11/12/16 09:42 Dose: 40 mg Fenofibrate (Tricor) 145 mg PO HS [facility] Last Admin: 11/11/16 22:12 Dose: 145 mg Finasteride (Proscar) 5 mg PO DAILY [facility] Last Admin: 11/12/16 09:42 Dose: 5 mg Furosemide (Lasix) 40 mg IVP DAILY [facility] Last Admin: 11/12/16 09:42 Dose: 40 mg Glucagon (Glucagen Diagnostic Kit) 0 mg IM STAT PRN; Protocol PRN Reason: Hypoglycemia Protocol Haloperidol (Haldol) 1 mg PO Q4H PRN PRN Reason: Agitation Haloperidol Lactate (Haldol) 1 mg IM ONCE PRN PRN Reason: Agitation Home Med (Patient's Own Drops) 1 drop OU BID [facility] Last Admin: 11/12/16 09:47 Dose: 1 drop Dextrose (Dextrose 5% In Water 1000 Ml) 1,000 mls @ 0 mls/hr IV .Q0M PRN; Protocol; Per Protocol PRN Reason: Hypoglycemia Protocol Insulin Human Regular (Novolin R) 0 unit SC [facility] PRN Reason: Protocol Last Admin: 11/12/16 08:05 Dose: Not Given Lorazepam (Ativan) 1 mg IVP Q6H PRN PRN Reason: Severe agitation Losartan Potassium (Cozaar) 50 mg PO DAILY [facility] Last Admin: 11/12/16 09:46 Dose: 50 mg Meclizine HCl (Antivert) 25 mg PO TID [facility] Last Admin: 11/12/16 09:46 Dose: 25 mg Metformin HCl (Glucophage) 1,000 mg PO BID [facility] Last Admin: 11/12/16 09:43 Dose: 1,000 mg Metoprolol Tartrate (Lopressor) 5 mg IVP Q1H PRN PRN Reason: Other Last Admin: 11/12/16 03:01 Dose: 5 mg Phenytoin Sodium (Dilantin) 100 mg PO TID [facility] Last Admin: 11/12/16 09:43 Dose: 100 mg Rosuvastatin Calcium (Crestor) 5 mg PO [facility] Last Admin: 11/11/16 22:12 Dose: 5 mg Trazodone HCl (Desyrel) 25 mg PO HS [facility] Last Admin: 11/11/16 22:12 Dose: 25 mg - Labs Labs: 11/12/16 09:05 11/12/16 09:05 PT 21.4 SECONDS (9.7-12.2) H 11/08/16 18:43 INR 1.8 11/08/16 18:43 APTT 40 SECONDS (21-34) H 11/08/16 18:43 Attending/Attestation - Attestation I have personally seen and examined this patient.: Yes I have fully participated in the care of the patient.: Yes I have reviewed all pertinent clinical information, including history, physical exam and plan: Yes Notes (Text): Altered Mental Status;active Change status to in patient due to change in mental status likely from dementia and change in location now improved today also complicated by hard of hearing and blindness
[2016-11-12] MEDS: Digoxin 125 mcg (0.125 mg) Tab PO SCH (17:27)
[2016-11-12] MEDS: traZODone 25 mg Tab PO SCH (21:02)
[2016-11-13] MEDS: (Novolin R) Insulin Human Regular 100 units/ml vial SC SCH ×4 (07:15→22:28)
[2016-11-13 07:21] LABS: ALB/GLOB RATIO 1.1 (1.0-2.1); ALKALINE PHOSPHATASE 36 U/L (38-126); ALT/SGPT 29 U/L (21-72); AST/SGOT 48 U/L (17-59); BILIRUBIN,TOTAL 1.4 mg/dL (0.2-1.3); BLOOD UREA NITROGEN 34 mg/dL (9-20); CALCIUM 9.4 mg/dl (8.6-10.4); CARBON DIOXIDE 22 mmol/L (22-30); CHLORIDE 100 mmol/L (98-107); GFR AFRICAN-AMERICAN > 60; GLUCOSE,RANDOM 97 mg/dL (75-110); POTASSIUM 3.5 mmol/L (3.6-5.2); SODIUM 136 mmol/L (132-148)
[2016-11-13 07:32] LABS: BASO # 0.1 K/uL (0.0-0.2); BASO % 0.7 % (0.0-2.0); EOS # 0.2 K/uL (0.0-0.7); EOS % 1.6 % (0.0-4.0); HEMATOCRIT 32.9 % (35.0-51.0); LYMPH # 1.3 K/uL (1.0-4.3); LYMPH % 12.9 % (20.0-40.0); MEAN CELL VOLUME 79.6 fL (80.0-94.0); MEAN CORPUSCULAR HEMOGLOBIN 26.6 pg (27.0-31.0); MEAN CORPUSCULAR HGB CONC 33.4 g/dL (33.0-37.0); MEAN PLATELET VOLUME 11.4 fL (7.2-11.7); MONO # 1.4 K/uL (0.0-0.8); MONO % 14.5 % (0.0-10.0); RED CELL DISTRIBUTION WIDTH 14.4 % (11.5-14.5)
[2016-11-13] MEDS ORDERED: cefTRIAXone 500 MG in Sodium Chloride 0.9% 50 ML IVPB SCH (08:30)
[2016-11-13] MEDS: diltiaZEM 120 mg/24 Hours CD Cap PO SCH (10:33)
[2016-11-13] MEDS: DORZOLAMIDE OU SCH ×2 (10:34→18:16)
[2016-11-13] MEDS: TIMOLOL EYE OU SCH ×2 (10:34→18:16)
[2016-11-13] MEDS ORDERED: Digoxin 500 mcg/2ml (0.5 mg/2ml) Inj IVP ONE (11:08)
--- NOTE | 2016-11-13 12:36 | CP.PCM.PN ---
Subjective - Date & Time of Evaluation Date of Evaluation: 11/13/16 Time of Evaluation: 10:00 - Subjective Subjective: CONDITION SAME. VS WNL. TACHYCARDIA PRESENT. Objective - Vital Signs/Intake and Output Vital Signs (last 24 hours): Temp Pulse Resp BP Pulse Ox 98.8 F 122 H 20 127/78 97 11/13/16 07:00 11/13/16 08:19 11/13/16 07:00 11/13/16 10:34 11/13/16 07:00 Intake and Output: 11/13/16 11/13/16 06:59 18:59 Intake Total 0 Balance 0 - Medications Medications: Current Medications Acetaminophen (Tylenol 325mg Tab) 650 mg PO Q6 PRN PRN Reason: Headache Amoxicillin (Amoxil 500 Mg Cap) 500 mg PO Q8H [facility] Last Admin: 11/13/16 08:36 Dose: 500 mg Apixaban (Eliquis) 5 mg PO BID [facility] Last Admin: 11/13/16 10:34 Dose: 5 mg Aspirin (Aspirin Chewable) 81 mg PO DAILY [facility] Last Admin: 11/13/16 11:41 Dose: 81 mg Benzocaine/Menthol (Cepacol Sore Throat) 1 tony MT DAILY PRN PRN Reason: Sore Throat Last Admin: 11/11/16 22:13 Dose: 1 tony Carbamide Peroxide (Debrox Ear Drops) 0 ml AD BID [facility] Last Admin: 11/13/16 10:34 Dose: 10 drop Carvedilol (Coreg) 25 mg PO BID [facility] Last Admin: 11/13/16 10:34 Dose: 25 mg Dextrose (Dextrose 50% Inj) 0 ml IV STAT PRN; Protocol PRN Reason: Hyglycemia Protocol Dextrose (Glutose 15) 0 gm PO ONCE PRN; Protocol PRN Reason: Hypoglycemia Protocol Digoxin (Lanoxin) 0.125 mg PO DAILY@1800 [facility] Last Admin: 11/12/16 17:27 Dose: 0.125 mg Diltiazem HCl (Cardizem Cd) 120 mg PO DAILY [facility] Last Admin: 11/13/16 10:33 Dose: 120 mg Famotidine (Pepcid) 40 mg PO DAILY [facility] Last Admin: 11/13/16 10:33 Dose: 40 mg Fenofibrate (Tricor) 145 mg PO HS [facility] Last Admin: 11/12/16 21:01 Dose: 145 mg Finasteride (Proscar) 5 mg PO DAILY [facility] Last Admin: 11/13/16 10:33 Dose: 5 mg Furosemide (Lasix) 40 mg IVP DAILY [facility] Last Admin: 11/13/16 10:34 Dose: 40 mg Glucagon (Glucagen Diagnostic Kit) 0 mg IM STAT PRN; Protocol PRN Reason: Hypoglycemia Protocol Haloperidol (Haldol) 1 mg PO Q4H PRN PRN Reason: Agitation Haloperidol Lactate (Haldol) 1 mg IM ONCE PRN PRN Reason: Agitation Home Med (Patient's Own Drops) 1 drop OU BID [facility] Last Admin: 11/13/16 10:34 Dose: 1 drop Dextrose (Dextrose 5% In Water 1000 Ml) 1,000 mls @ 0 mls/hr IV .Q0M PRN; Protocol; Per Protocol PRN Reason: Hypoglycemia Protocol Insulin Human Regular (Novolin R) 0 unit SC ACHS [facility] PRN Reason: Protocol Last Admin: 11/13/16 07:15 Dose: Not Given Lorazepam (Ativan) 1 mg IVP Q6H PRN PRN Reason: Severe agitation Losartan Potassium (Cozaar) 50 mg PO DAILY [facility] Last Admin: 11/13/16 10:33 Dose: 50 mg Meclizine HCl (Antivert) 25 mg PO TID [facility] Last Admin: 11/13/16 10:34 Dose: 25 mg Metformin HCl (Glucophage) 1,000 mg PO BID [facility] Last Admin: 11/13/16 10:33 Dose: 1,000 mg Metoprolol Tartrate (Lopressor) 5 mg IVP Q1H PRN PRN Reason: Other Last Admin: 11/12/16 03:01 Dose: 5 mg Phenytoin Sodium (Dilantin) 100 mg PO TID [facility] Last Admin: 11/13/16 10:33 Dose: 100 mg Rosuvastatin Calcium (Crestor) 5 mg PO HS [facility] Last Admin: 11/12/16 21:01 Dose: 5 mg Trazodone HCl (Desyrel) 25 mg PO HS [facility] Last Admin: 11/12/16 21:02 Dose: 25 mg - Labs Labs: 11/13/16 06:53 11/13/16 06:53 PT 21.4 SECONDS (9.7-12.2) H 11/08/16 18:43 INR 1.8 11/08/16 18:43 APTT 40 SECONDS (21-34) H 11/08/16 18:43 - Constitutional Appears: No Acute Distress, Chronically Ill - Eye Exam Eye Exam: Normal appearance, PERRL - ENT Exam ENT Exam: Mucous Membranes Moist, Normal Exam - Respiratory Exam Respiratory Exam: Decreased Breath Sounds, Clear to Ausculation Bilateral - Cardiovascular Exam Cardiovascular Exam: Tachycardia, Irregular Rhythm, +S1, +S2 - GI/Abdominal Exam GI & Abdominal Exam: Soft, Normal Bowel Sounds - Extremities Exam Extremities Exam: Full ROM, Normal Capillary Refill, Normal Inspection. absent : Joint Swelling, Pedal Edema Assessment and Plan - Assessment and Plan (Free Text) Assessment: E. COLI UTI. A. FIB RVR. Plan: FOR DIGOXIN. CT COREG AND DELTIAZEM.
--- NOTE | 2016-11-13 13:03 | CARD ---
APPROVED REPORT EKG Measurement Heart [id number] <Conclusion> Atrial fibrillation Left anterior fascicular block Anterior infarct, age undetermined ST & T wave abnormality, consider lateral ischemia Abnormal ECG
--- NOTE | 2016-11-13 13:55 | RAD ---
Chest x-ray single frontal view History: Shortness of breath. Comparison: 11/08/2016 Findings: Patchy increased consolidative markings in the right suprahilar region. Mild venous congestion. Left-sided pacemaker. Tortuous aorta. Mild cardiomegaly. Calcification at the aortic knob. Degenerative changes in the spine and shoulders. Impression: Patchy increased consolidative markings in the right suprahilar region. Mild venous congestion. Left-sided pacemaker. Tortuous aorta. Mild cardiomegaly.
--- NOTE | 2016-11-13 16:13 | CP.PCM.PN ---
Subjective - Date & Time of Evaluation Date of Evaluation: 11/13/16 Time of Evaluation: 16:10 - Subjective Subjective: Mr. Fuentes was seen at the bedside with the assist of languange line. He is uncooperative. There was not in any kind of distress. There was no untoward events overnight. Objective - Vital Signs/Intake and Output Vital Signs (last 24 hours): Temp Pulse Resp BP Pulse Ox 98.8 F 122 H 20 127/78 97 11/13/16 07:00 11/13/16 10:00 11/13/16 07:00 11/13/16 10:34 11/13/16 07:00 Intake and Output: 11/13/16 11/13/16 06:59 18:59 Intake Total 0 Balance 0 - Medications Medications: Current Medications Acetaminophen (Tylenol 325mg Tab) 650 mg PO Q6 PRN PRN Reason: Headache Amoxicillin (Amoxil 500 Mg Cap) 500 mg PO Q8H [facility] Last Admin: 11/13/16 08:36 Dose: 500 mg Apixaban (Eliquis) 5 mg PO BID [facility] Last Admin: 11/13/16 10:34 Dose: 5 mg Aspirin (Aspirin Chewable) 81 mg PO DAILY [facility] Last Admin: 11/13/16 11:41 Dose: 81 mg Benzocaine/Menthol (Cepacol Sore Throat) 1 tony MT DAILY PRN PRN Reason: Sore Throat Last Admin: 11/11/16 22:13 Dose: 1 tony Carbamide Peroxide (Debrox Ear Drops) 0 ml AD BID [facility] Last Admin: 11/13/16 10:34 Dose: 10 drop Carvedilol (Coreg) 25 mg PO BID [facility] Last Admin: 11/13/16 10:34 Dose: 25 mg Dextrose (Dextrose 50% Inj) 0 ml IV STAT PRN; Protocol PRN Reason: Hyglycemia Protocol Dextrose (Glutose 15) 0 gm PO ONCE PRN; Protocol PRN Reason: Hypoglycemia Protocol Digoxin (Lanoxin) 0.125 mg PO DAILY@1800 [facility] Last Admin: 11/12/16 17:27 Dose: 0.125 mg Diltiazem HCl (Cardizem Cd) 120 mg PO DAILY [facility] Last Admin: 11/13/16 10:33 Dose: 120 mg Famotidine (Pepcid) 40 mg PO DAILY [facility] Last Admin: 11/13/16 10:33 Dose: 40 mg Fenofibrate (Tricor) 145 mg PO HS [facility] Last Admin: 11/12/16 21:01 Dose: 145 mg Finasteride (Proscar) 5 mg PO DAILY [facility] Last Admin: 11/13/16 10:33 Dose: 5 mg Furosemide (Lasix) 40 mg IVP DAILY [facility] Last Admin: 11/13/16 10:34 Dose: 40 mg Glucagon (Glucagen Diagnostic Kit) 0 mg IM STAT PRN; Protocol PRN Reason: Hypoglycemia Protocol Haloperidol (Haldol) 1 mg PO Q4H PRN PRN Reason: Agitation Haloperidol Lactate (Haldol) 1 mg IM ONCE PRN PRN Reason: Agitation Home Med (Patient's Own Drops) 1 drop OU BID [facility] Last Admin: 11/13/16 10:34 Dose: 1 drop Dextrose (Dextrose 5% In Water 1000 Ml) 1,000 mls @ 0 mls/hr IV .Q0M PRN; Protocol; Per Protocol PRN Reason: Hypoglycemia Protocol Insulin Human Regular (Novolin R) 0 unit SC ACHS [facility] PRN Reason: Protocol Last Admin: 11/13/16 12:38 Dose: Not Given Lorazepam (Ativan) 1 mg IVP Q6H PRN PRN Reason: Severe agitation Losartan Potassium (Cozaar) 50 mg PO DAILY [facility] Last Admin: 11/13/16 10:33 Dose: 50 mg Meclizine HCl (Antivert) 25 mg PO TID [facility] Last Admin: 11/13/16 13:42 Dose: 25 mg Metformin HCl (Glucophage) 1,000 mg PO BID [facility] Last Admin: 11/13/16 10:33 Dose: 1,000 mg Metoprolol Tartrate (Lopressor) 5 mg IVP Q1H PRN PRN Reason: Other Last Admin: 11/12/16 03:01 Dose: 5 mg Phenytoin Sodium (Dilantin) 100 mg PO TID [facility] Last Admin: 11/13/16 13:42 Dose: 100 mg Rosuvastatin Calcium (Crestor) 5 mg PO HS [facility] Last Admin: 11/12/16 21:01 Dose: 5 mg Trazodone HCl (Desyrel) 25 mg PO HS [facility] Last Admin: 11/12/16 21:02 Dose: 25 mg - Labs Labs: 11/13/16 06:53 11/13/16 06:53 PT 21.4 SECONDS (9.7-12.2) H 11/08/16 18:43 INR 1.8 11/08/16 18:43 APTT 40 SECONDS (21-34) H 11/08/16 18:43 - Constitutional Appears: Unkempt - Head Exam Head Exam: ATRAUMATIC, NORMAL INSPECTION, NORMOCEPHALIC - Neurological Exam Neurological Exam: Alert, Awake Additional comments: unable to assess other neurological assessment due to patient's behavior. Assessment and Plan (1) Chronic ischemic right MCA stroke Assessment & Plan: Case discussed with Dayami Reynoso, continue current medical therapy. No new recommendation from neurology. Status: Chronic
[2016-11-13] MEDS: Digoxin 125 mcg (0.125 mg) Tab PO SCH (18:31)
--- NOTE | 2016-11-13 20:46 | CP.PCM.PN ---
<Nikki Hope - Last Filed: 11/13/16 20:48> Subjective - Date & Time of Evaluation Date of Evaluation: 11/13/16 Time of Evaluation: 20:44 - Subjective Subjective: Progress note for Dr. Carvalho Patient seen and examined at bedside. No acute events overnight. Patient is responsive at times, but does not hold a full conversation in greenlandic. No acute events overnight per nursing. Patient took medication this weekend. Objective - Vital Signs/Intake and Output Vital Signs (last 24 hours): Temp Pulse Resp BP Pulse Ox 98.2 F 77 18 121/70 100 11/13/16 15:05 11/13/16 15:05 11/13/16 15:05 11/13/16 18:31 11/13/16 15:05 Intake and Output: 11/13/16 11/14/16 18:59 06:59 Intake Total 890 Balance 890 - Medications Medications: Current Medications Acetaminophen (Tylenol 325mg Tab) 650 mg PO Q6 PRN PRN Reason: Headache Amoxicillin (Amoxil 500 Mg Cap) 500 mg PO Q8H [facility] Last Admin: 11/13/16 17:00 Dose: 500 mg Apixaban (Eliquis) 5 mg PO BID [facility] Last Admin: 11/13/16 18:16 Dose: 5 mg Aspirin (Aspirin Chewable) 81 mg PO DAILY [facility] Last Admin: 11/13/16 11:41 Dose: 81 mg Benzocaine/Menthol (Cepacol Sore Throat) 1 tony MT DAILY PRN PRN Reason: Sore Throat Last Admin: 11/11/16 22:13 Dose: 1 tony Carbamide Peroxide (Debrox Ear Drops) 0 ml AD BID [facility] Last Admin: 11/13/16 18:17 Dose: 5 drop Carvedilol (Coreg) 25 mg PO BID [facility] Last Admin: 11/13/16 18:31 Dose: 25 mg Dextrose (Dextrose 50% Inj) 0 ml IV STAT PRN; Protocol PRN Reason: Hyglycemia Protocol Dextrose (Glutose 15) 0 gm PO ONCE PRN; Protocol PRN Reason: Hypoglycemia Protocol Digoxin (Lanoxin) 0.125 mg PO DAILY@1800 [facility] Last Admin: 11/13/16 18:31 Dose: 0.125 mg Diltiazem HCl (Cardizem Cd) 120 mg PO DAILY [facility] Last Admin: 11/13/16 10:33 Dose: 120 mg Famotidine (Pepcid) 40 mg PO DAILY [facility] Last Admin: 11/13/16 10:33 Dose: 40 mg Fenofibrate (Tricor) 145 mg PO HS [facility] Last Admin: 11/12/16 21:01 Dose: 145 mg Finasteride (Proscar) 5 mg PO DAILY [facility] Last Admin: 11/13/16 10:33 Dose: 5 mg Furosemide (Lasix) 40 mg IVP DAILY [facility] Last Admin: 11/13/16 10:34 Dose: 40 mg Glucagon (Glucagen Diagnostic Kit) 0 mg IM STAT PRN; Protocol PRN Reason: Hypoglycemia Protocol Haloperidol (Haldol) 1 mg PO Q4H PRN PRN Reason: Agitation Haloperidol Lactate (Haldol) 1 mg IM ONCE PRN PRN Reason: Agitation Home Med (Patient's Own Drops) 1 drop OU BID [facility] Last Admin: 11/13/16 18:16 Dose: 1 drop Insulin Human Regular (Novolin R) 0 unit SC ACHS [facility] PRN Reason: Protocol Last Admin: 11/13/16 17:00 Dose: 2 unit Lorazepam (Ativan) 1 mg IVP Q6H PRN PRN Reason: Severe agitation Losartan Potassium (Cozaar) 50 mg PO DAILY [facility] Last Admin: 11/13/16 10:33 Dose: 50 mg Meclizine HCl (Antivert) 25 mg PO TID [facility] Last Admin: 11/13/16 13:42 Dose: 25 mg Metformin HCl (Glucophage) 1,000 mg PO BID [facility] Last Admin: 11/13/16 18:15 Dose: 1,000 mg Metoprolol Tartrate (Lopressor) 5 mg IVP Q1H PRN PRN Reason: Other Last Admin: 11/12/16 03:01 Dose: 5 mg Phenytoin Sodium (Dilantin) 100 mg PO TID [facility] Last Admin: 11/13/16 18:16 Dose: 100 mg Rosuvastatin Calcium (Crestor) 5 mg PO HS [facility] Last Admin: 11/12/16 21:01 Dose: 5 mg Trazodone HCl (Desyrel) 25 mg PO HS [facility] Last Admin: 11/12/16 21:02 Dose: 25 mg - Labs Labs: 11/13/16 06:53 11/13/16 06:53 PT 21.4 SECONDS (9.7-12.2) H 11/08/16 18:43 INR 1.8 11/08/16 18:43 APTT 40 SECONDS (21-34) H 11/08/16 18:43 - Constitutional Appears: Non-toxic, Confused - Head Exam Head Exam: NORMAL INSPECTION - Eye Exam Additional comments: patient is blind (legally) - ENT Exam ENT Exam: Mucous Membranes Moist Additional comments: drops in ear for cerumen impaction - Neck Exam Neck Exam: Full ROM - Respiratory Exam Respiratory Exam: NORMAL BREATHING PATTERN. absent: Accessory Muscle Use, Respiratory Distress - Cardiovascular Exam Cardiovascular Exam: Tachycardia, Irregular Rhythm. absent: Bradycardia - GI/Abdominal Exam GI & Abdominal Exam: Soft. absent: Tenderness - Extremities Exam Extremities Exam: Full ROM, Normal Inspection. absent: Pedal Edema - Neurological Exam Neurological Exam: Alert, Awake, Oriented x3 - Psychiatric Exam Psychiatric exam: Normal Affect, Normal Mood. absent: Flat Affect - Skin Skin Exam: Dry, Intact, Normal Color, Warm Assessment and Plan - Assessment and Plan (Free Text) Assessment: Altered Mental Status; stable Change status to in patient due to change in mental status and IM haldol 5mh PRN for agitation Mental Status checks Patient was going to be discharged to home 11/10 and all Rx were placed in the chart Exam was unchanged. NO facial droop or extremities weakness. 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 Reynoso; appreciate recs; stats to continue current management the f/u head CT shows chronic changes only A-fib; not rate controlled (Afib RVR) Eliquis 5 mg PO 1x/day Metoprolol PRN HR >110 Cardizem drip 5mg HR >130 Digoxin added 0.25IVP QDaily CHF history; chronic diastolic dysfunction 2D Echo 11/09/16 EF 60-65%, Grade 1 diastolic dysfunction, severe Pulmonary HTN, small pericardial effusion CTA: NO PE, NO Dissection, enlarged main pulmonary artery with increased right ventricular/left ventricular ratio, pulmonary artery HTN, right ventricular dysfunction, mediastinal lymphadenopathy Cardiac Consult: Dr. Ksenia Sanches: no further cardiac f/u needed. continue with current treatment Troponin x 3 negative HOB at 45 degrees Daily Weight Dietary Consult for HF diet BPH; stable Avodart 0.5 mg PO 1x/day HLD; chronic Tricor 45 mg PO HS Crestor 5 mg PO HS Diabetes; chronic controlled Metformin 1,000 mg PO 2x/day Hgb A1c 5.9 RISS ACHS Hx Seizure Phenytoin 100 mg PO TID Dilantin normal HTN Cozaar 50 mg PO 1x/day Anemia; iron deficiency Likely secondary to Iron Deficiency Iron 26 TIBC 461 % saturation 6L Bilateral Cerumen Impaction; improved Patient will need to have ENT remove cerumen; is improving with nursing giving drops and cleaning ears daily ENT consulted peroxide drops ordered for ears Mediastinal Lymphadenopathy As seen on CTA <Freddy Carvalho H - Last Filed: 11/14/16 12:59> Objective - Vital Signs/Intake and Output Vital Signs (last 24 hours): Temp Pulse Resp BP Pulse Ox 98.3 F 97 H 20 132/79 97 11/14/16 09:09 11/14/16 09:09 11/14/16 09:09 11/14/16 11:21 11/14/16 09:09 Intake and Output: 11/14/16 11/14/16 06:59 18:59 Intake Total 240 Balance 240 - Medications Medications: Current Medications Acetaminophen (Tylenol 325mg Tab) 650 mg PO Q6 PRN PRN Reason: Headache Amoxicillin (Amoxil 500 Mg Cap) 500 mg PO Q8H [facility] Last Admin: 11/14/16 09:30 Dose: 500 mg Apixaban (Eliquis) 5 mg PO BID [facility] Last Admin: 11/14/16 10:59 Dose: 5 mg Aspirin (Aspirin Chewable) 81 mg PO DAILY [facility] Last Admin: 11/14/16 10:59 Dose: 81 mg Benzocaine/Menthol (Cepacol Sore Throat) 1 tony MT DAILY PRN PRN Reason: Sore Throat Last Admin: 11/11/16 22:13 Dose: 1 tony Carbamide Peroxide (Debrox Ear Drops) 0 ml AD BID [facility] Last Admin: 11/14/16 11:24 Dose: 10 drop Carvedilol (Coreg) 25 mg PO BID [facility] Last Admin: 11/14/16 10:59 Dose: 25 mg Dextrose (Dextrose 50% Inj) 0 ml IV STAT PRN; Protocol PRN Reason: Hyglycemia Protocol Dextrose (Glutose 15) 0 gm PO ONCE PRN; Protocol PRN Reason: Hypoglycemia Protocol Digoxin (Lanoxin) 0.125 mg PO DAILY@1800 [facility] Last Admin: 11/13/16 18:31 Dose: 0.125 mg Diltiazem HCl (Cardizem Cd) 120 mg PO DAILY [facility] Last Admin: 11/14/16 10:59 Dose: 120 mg Famotidine (Pepcid) 40 mg PO DAILY [facility] Last Admin: 11/14/16 10:59 Dose: 40 mg Fenofibrate (Tricor) 145 mg PO HS [facility] Last Admin: 11/13/16 22:30 Dose: Not Given Finasteride (Proscar) 5 mg PO DAILY [facility] Last Admin: 11/14/16 10:59 Dose: 5 mg Furosemide (Lasix) 40 mg IVP DAILY [facility] Last Admin: 11/14/16 11:21 Dose: 40 mg Glucagon (Glucagen Diagnostic Kit) 0 mg IM STAT PRN; Protocol PRN Reason: Hypoglycemia Protocol Haloperidol (Haldol) 1 mg PO Q4H PRN PRN Reason: Agitation Haloperidol Lactate (Haldol) 1 mg IM ONCE PRN PRN Reason: Agitation Home Med (Patient's Own Drops) 1 drop OU BID [facility] Last Admin: 11/14/16 11:23 Dose: 1 drop Ceftriaxone Sodium 500 mg/ (Sodium Chloride) 50 mls @ 100 mls/hr IVPB Q24H [facility] Last Admin: 11/14/16 10:30 Dose: 100 mls/hr Insulin Human Regular (Novolin R) 0 unit SC ACHS [facility] PRN Reason: Protocol Last Admin: 11/14/16 08:06 Dose: Not Given Lorazepam (Ativan) 1 mg IVP Q6H PRN PRN Reason: Severe agitation Losartan Potassium (Cozaar) 50 mg PO DAILY [facility] Last Admin: 11/14/16 10:59 Dose: 50 mg Meclizine HCl (Antivert) 25 mg PO TID [facility] Last Admin: 11/14/16 11:00 Dose: 25 mg Metformin HCl (Glucophage) 1,000 mg PO BID [facility] Last Admin: 11/13/16 18:15 Dose: 1,000 mg Metoprolol Tartrate (Lopressor) 5 mg IVP Q1H PRN PRN Reason: Other Last Admin: 11/12/16 03:01 Dose: 5 mg Phenytoin Sodium (Dilantin) 100 mg PO TID [facility] Last Admin: 11/14/16 10:59 Dose: 100 mg Rosuvastatin Calcium (Crestor) 5 mg PO HS [facility] Last Admin: 11/13/16 22:30 Dose: Not Given - Labs Labs: 11/14/16 07:13 11/14/16 07:13 PT 21.4 SECONDS (9.7-12.2) H 11/08/16 18:43 INR 1.8 11/08/16 18:43 APTT 40 SECONDS (21-34) H 11/08/16 18:43 Attending/Attestation - Attestation I have personally seen and examined this patient.: Yes I have fully participated in the care of the patient.: Yes I have reviewed all pertinent clinical information, including history, physical exam and plan: Yes Notes (Text): 11/14/16 12:55 Medical Attending: Patient was seen and examined by me. Agree with the above note by the resident As noted previously the patient has difficulty with vision and also eye sight. He did not follow commands at times. This is my first time meeting patient. He has had two CT scans of the head to assess for potential CVA since he has history of a high CHADs score atrial fibrillation He did have some epsiodes of rapid HR and we ordered IV digoxin. There is a history of atrial fibrillation for which he is on anticoagulation for. thank you Freddy Carvalho
[2016-11-13] MEDS: traZODone 25 mg Tab PO SCH (22:30)
[2016-11-14 07:23] LABS: BASO # 0.1 K/uL (0.0-0.2); EOS # 0.2 K/uL (0.0-0.7); EOS % 1.6 % (0.0-4.0); HEMATOCRIT 34.7 % (35.0-51.0); LYMPH # 1.1 K/uL (1.0-4.3); LYMPH % 11.2 % (20.0-40.0); MEAN CELL VOLUME 79.7 fL (80.0-94.0); MEAN CORPUSCULAR HEMOGLOBIN 26.4 pg (27.0-31.0); MEAN CORPUSCULAR HGB CONC 33.2 g/dL (33.0-37.0); MEAN PLATELET VOLUME 11.2 fL (7.2-11.7); MONO # 1.3 K/uL (0.0-0.8); RED CELL DISTRIBUTION WIDTH 14.8 % (11.5-14.5); WHITE BLOOD COUNT 9.5 K/uL (4.8-10.8)
[2016-11-14 07:46] LABS: CHLORIDE 100 mmol/L (98-107)
[2016-11-14 07:47] LABS: POTASSIUM 3.9 mmol/L (3.6-5.2); SODIUM 139 mmol/L (132-148)
[2016-11-14 07:48] LABS: GFR AFRICAN-AMERICAN > 60
[2016-11-14 07:49] LABS: ALKALINE PHOSPHATASE 39 U/L (38-126); ALT/SGPT 26 U/L (21-72); AST/SGOT 46 U/L (17-59); BILIRUBIN,TOTAL 1.2 mg/dL (0.2-1.3); BLOOD UREA NITROGEN 34 mg/dL (9-20); CALCIUM 9.2 mg/dl (8.6-10.4); CARBON DIOXIDE 24 mmol/L (22-30); GLUCOSE,RANDOM 103 mg/dL (75-110); TOTAL PROTEIN 7.5 g/dL (6.3-8.3)
[2016-11-14] MEDS: (Novolin R) Insulin Human Regular 100 units/ml vial SC SCH ×4 (08:06→21:17)
--- NOTE | 2016-11-14 09:08 | CP.PCM.PN ---
Subjective - Date & Time of Evaluation Date of Evaluation: 11/14/16 Time of Evaluation: 09:05 - Subjective Subjective: Mr. Fuentes was seen at the bedside. He remains uncooperative to assessment and would not answer to any questions. He is not in any acute distress. There was no untoward events overnight.Found the patient eating his breakfast with no signs of aspirations. Objective - Vital Signs/Intake and Output Vital Signs (last 24 hours): Temp Pulse Resp BP Pulse Ox 98.2 F 100 H 18 121/70 100 11/13/16 15:05 11/14/16 08:51 11/13/16 15:05 11/13/16 18:31 11/13/16 15:05 Intake and Output: 11/14/16 11/14/16 06:59 18:59 Intake Total 240 Balance 240 - Medications Medications: Current Medications Acetaminophen (Tylenol 325mg Tab) 650 mg PO Q6 PRN PRN Reason: Headache Amoxicillin (Amoxil 500 Mg Cap) 500 mg PO Q8H [facility] Last Admin: 11/14/16 01:28 Dose: Not Given Apixaban (Eliquis) 5 mg PO BID [facility] Last Admin: 11/13/16 18:16 Dose: 5 mg Aspirin (Aspirin Chewable) 81 mg PO DAILY [facility] Last Admin: 11/13/16 11:41 Dose: 81 mg Benzocaine/Menthol (Cepacol Sore Throat) 1 tony MT DAILY PRN PRN Reason: Sore Throat Last Admin: 11/11/16 22:13 Dose: 1 tony Carbamide Peroxide (Debrox Ear Drops) 0 ml AD BID [facility] Last Admin: 11/13/16 18:17 Dose: 5 drop Carvedilol (Coreg) 25 mg PO BID [facility] Last Admin: 11/13/16 18:31 Dose: 25 mg Dextrose (Dextrose 50% Inj) 0 ml IV STAT PRN; Protocol PRN Reason: Hyglycemia Protocol Dextrose (Glutose 15) 0 gm PO ONCE PRN; Protocol PRN Reason: Hypoglycemia Protocol Digoxin (Lanoxin) 0.125 mg PO DAILY@1800 [facility] Last Admin: 11/13/16 18:31 Dose: 0.125 mg Diltiazem HCl (Cardizem Cd) 120 mg PO DAILY [facility] Last Admin: 11/13/16 10:33 Dose: 120 mg Famotidine (Pepcid) 40 mg PO DAILY [facility] Last Admin: 11/13/16 10:33 Dose: 40 mg Fenofibrate (Tricor) 145 mg PO HS [facility] Last Admin: 11/13/16 22:30 Dose: Not Given Finasteride (Proscar) 5 mg PO DAILY [facility] Last Admin: 11/13/16 10:33 Dose: 5 mg Furosemide (Lasix) 40 mg IVP DAILY [facility] Last Admin: 11/13/16 10:34 Dose: 40 mg Glucagon (Glucagen Diagnostic Kit) 0 mg IM STAT PRN; Protocol PRN Reason: Hypoglycemia Protocol Haloperidol (Haldol) 1 mg PO Q4H PRN PRN Reason: Agitation Haloperidol Lactate (Haldol) 1 mg IM ONCE PRN PRN Reason: Agitation Home Med (Patient's Own Drops) 1 drop OU BID [facility] Last Admin: 11/13/16 18:16 Dose: 1 drop Ceftriaxone Sodium 500 mg/ (Sodium Chloride) 50 mls @ 100 mls/hr IVPB Q24H [facility] Insulin Human Regular (Novolin R) 0 unit SC ACHS [facility] PRN Reason: Protocol Last Admin: 11/14/16 08:06 Dose: Not Given Lorazepam (Ativan) 1 mg IVP Q6H PRN PRN Reason: Severe agitation Losartan Potassium (Cozaar) 50 mg PO DAILY [facility] Last Admin: 11/13/16 10:33 Dose: 50 mg Meclizine HCl (Antivert) 25 mg PO TID [facility] Last Admin: 11/13/16 18:30 Dose: 25 mg Metformin HCl (Glucophage) 1,000 mg PO BID [facility] Last Admin: 11/13/16 18:15 Dose: 1,000 mg Metoprolol Tartrate (Lopressor) 5 mg IVP Q1H PRN PRN Reason: Other Last Admin: 11/12/16 03:01 Dose: 5 mg Phenytoin Sodium (Dilantin) 100 mg PO TID [facility] Last Admin: 11/13/16 18:16 Dose: 100 mg Rosuvastatin Calcium (Crestor) 5 mg PO HS [facility] Last Admin: 11/13/16 22:30 Dose: Not Given Trazodone HCl (Desyrel) 25 mg PO HS [facility] Last Admin: 11/13/16 22:30 Dose: Not Given - Labs Labs: 11/14/16 07:13 11/14/16 07:13 PT 21.4 SECONDS (9.7-12.2) H 11/08/16 18:43 INR 1.8 11/08/16 18:43 APTT 40 SECONDS (21-34) H 11/08/16 18:43 - Constitutional Appears: Well - Head Exam Head Exam: ATRAUMATIC, NORMAL INSPECTION, NORMOCEPHALIC - Neurological Exam Neurological Exam: Alert, Awake Additional comments: Unable to do assessment, pat is uncooperative.. Assessment and Plan (1) Chronic ischemic right MCA stroke Assessment & Plan: Case discussed with Dr. Reynoso, continue current medical, physical therapies. Status: Chronic
[2016-11-14 09:11] VITALS: RESP 20
[2016-11-14] MEDS ORDERED: Digoxin 500 mcg/2ml (0.5 mg/2ml) Inj IVP ONE (10:18)
[2016-11-14] MEDS: cefTRIAXone 500 MG in Sodium Chloride 0.9% 50 ML IVPB SCH (10:30)
--- NOTE | 2016-11-14 10:31 | CP.PCM.PN ---
<Nikki Hope - Last Filed: 11/14/16 10:35> Subjective - Date & Time of Evaluation Date of Evaluation: 11/14/16 Time of Evaluation: 10:27 - Subjective Subjective: internal Medicine Progress note for Dr. Carvalho Patient seen and examined at bedside. Patient speaks full sentences, does not answer questions appropriately. Patient does not obey commands well. Per nursing, no acute events overnight. Resident spoke to patient's and co- worker translated after being given verbal permission to speak about patient with both parties. [phone]. Patient's states her is able to walk at home with assistance. 1 year ago in early 2016, patient's former homemaker noticed a change in patient's mentation. Patient was taken to [facility] to receive scans of the brain. Patient's does not know the results and said she will find the papers. Explained to patient's , likely the infarct in the brain or stroke may be the cause of his altered mental status. Patient's told about the UTI and sinusitis which are being treated with antibiotics. Patient's will arrive at the hospital at 1 pm today and I will speak with her today. Objective - Vital Signs/Intake and Output Vital Signs (last 24 hours): Temp Pulse Resp BP Pulse Ox 98.3 F 97 H 20 129/81 97 11/14/16 09:09 11/14/16 09:09 11/14/16 09:09 11/14/16 09:09 11/14/16 09:09 Intake and Output: 11/14/16 11/14/16 06:59 18:59 Intake Total 240 Balance 240 - Medications Medications: Current Medications Acetaminophen (Tylenol 325mg Tab) 650 mg PO Q6 PRN PRN Reason: Headache Amoxicillin (Amoxil 500 Mg Cap) 500 mg PO Q8H [facility] Last Admin: 11/14/16 01:28 Dose: Not Given Apixaban (Eliquis) 5 mg PO BID [facility] Last Admin: 11/13/16 18:16 Dose: 5 mg Aspirin (Aspirin Chewable) 81 mg PO DAILY [facility] Last Admin: 11/13/16 11:41 Dose: 81 mg Benzocaine/Menthol (Cepacol Sore Throat) 1 tony MT DAILY PRN PRN Reason: Sore Throat Last Admin: 11/11/16 22:13 Dose: 1 tony Carbamide Peroxide (Debrox Ear Drops) 0 ml AD BID [facility] Last Admin: 11/13/16 18:17 Dose: 5 drop Carvedilol (Coreg) 25 mg PO BID [facility] Last Admin: 11/13/16 18:31 Dose: 25 mg Dextrose (Dextrose 50% Inj) 0 ml IV STAT PRN; Protocol PRN Reason: Hyglycemia Protocol Dextrose (Glutose 15) 0 gm PO ONCE PRN; Protocol PRN Reason: Hypoglycemia Protocol Digoxin (Lanoxin) 0.125 mg PO DAILY@1800 [facility] Last Admin: 11/13/16 18:31 Dose: 0.125 mg Diltiazem HCl (Cardizem Cd) 120 mg PO DAILY [facility] Last Admin: 11/13/16 10:33 Dose: 120 mg Famotidine (Pepcid) 40 mg PO DAILY [facility] Last Admin: 11/13/16 10:33 Dose: 40 mg Fenofibrate (Tricor) 145 mg PO HS [facility] Last Admin: 11/13/16 22:30 Dose: Not Given Finasteride (Proscar) 5 mg PO DAILY [facility] Last Admin: 11/13/16 10:33 Dose: 5 mg Furosemide (Lasix) 40 mg IVP DAILY [facility] Last Admin: 11/13/16 10:34 Dose: 40 mg Glucagon (Glucagen Diagnostic Kit) 0 mg IM STAT PRN; Protocol PRN Reason: Hypoglycemia Protocol Haloperidol (Haldol) 1 mg PO Q4H PRN PRN Reason: Agitation Haloperidol Lactate (Haldol) 1 mg IM ONCE PRN PRN Reason: Agitation Home Med (Patient's Own Drops) 1 drop OU BID [facility] Last Admin: 11/13/16 18:16 Dose: 1 drop Ceftriaxone Sodium 500 mg/ (Sodium Chloride) 50 mls @ 100 mls/hr IVPB Q24H [facility] Insulin Human Regular (Novolin R) 0 unit SC ACHS [facility] PRN Reason: Protocol Last Admin: 11/14/16 08:06 Dose: Not Given Lorazepam (Ativan) 1 mg IVP Q6H PRN PRN Reason: Severe agitation Losartan Potassium (Cozaar) 50 mg PO DAILY [facility] Last Admin: 11/13/16 10:33 Dose: 50 mg Meclizine HCl (Antivert) 25 mg PO TID [facility] Last Admin: 11/13/16 18:30 Dose: 25 mg Metformin HCl (Glucophage) 1,000 mg PO BID [facility] Last Admin: 11/13/16 18:15 Dose: 1,000 mg Metoprolol Tartrate (Lopressor) 5 mg IVP Q1H PRN PRN Reason: Other Last Admin: 11/12/16 03:01 Dose: 5 mg Phenytoin Sodium (Dilantin) 100 mg PO TID [facility] Last Admin: 11/13/16 18:16 Dose: 100 mg Rosuvastatin Calcium (Crestor) 5 mg PO HS [facility] Last Admin: 11/13/16 22:30 Dose: Not Given - Labs Labs: 11/14/16 07:13 11/14/16 07:13 PT 21.4 SECONDS (9.7-12.2) H 11/08/16 18:43 INR 1.8 11/08/16 18:43 APTT 40 SECONDS (21-34) H 11/08/16 18:43 - Constitutional Appears: Non-toxic - Head Exam Head Exam: NORMAL INSPECTION - Eye Exam Additional comments: Patient is legally blind and looks in the general direction of the voice when spoken to. At times, the patient does not move his eyes accordingly - ENT Exam ENT Exam: Mucous Membranes Moist - Neck Exam Neck Exam: Full ROM - Respiratory Exam Respiratory Exam: NORMAL BREATHING PATTERN. absent: Accessory Muscle Use, Respiratory Distress - Cardiovascular Exam Cardiovascular Exam: Irregular Rhythm, +S1, +S2 - GI/Abdominal Exam GI & Abdominal Exam: Soft. absent: Tenderness - Neurological Exam Neurological Exam: Awake Neuro motor strength exam: Left Upper Extremity: 4, Right Upper Extremity: 4, Left Lower Extremity: 2/1, Right Lower Extremity: 2/1 - Psychiatric Exam Psychiatric exam: Flat Affect, Normal Mood - Skin Skin Exam: Dry, Intact, Normal Color, Warm Assessment and Plan - Assessment and Plan (Free Text) Assessment: Altered Mental Status; stable Change status to in patient due to change in mental status and IM haldol 5mh PRN for agitation Mental Status checks Patient was going to be discharged to home 11/10 and all Rx were placed in the chart Exam was unchanged. NO facial droop or extremities weakness. 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 Reynoso mentioned CT head read being chronic changes only "Verdana 4d CT scan of the head was done and showed the chronic appearing right frontal lobe infarct, but no acute findings." per Dr. Reynoso's 11/11 note A-fib; not rate controlled (Afib RVR) Eliquis 5 mg PO 1x/day Metoprolol PRN HR >110 Cardizem drip 5mg HR >130 Digoxin added 0.25IVP Q Once ordered for today CHF history; chronic diastolic dysfunction 2D Echo 11/09/16 EF 60-65%, Grade 1 diastolic dysfunction, severe Pulmonary HTN, small pericardial effusion CTA: NO PE, NO Dissection, enlarged main pulmonary artery with increased right ventricular/left ventricular ratio, pulmonary artery HTN, right ventricular dysfunction, mediastinal lymphadenopathy Cardiac Consult: Dr. Ksenia Sanches: no further cardiac f/u needed. continue with current treatment Troponin x 3 negative HOB at 45 degrees Daily Weight Diet: Heart Healthy Diet BPH; stable Avodart 0.5 mg PO 1x/day HLD; chronic Tricor 45 mg PO HS Crestor 5 mg PO HS Diabetes; chronic controlled Metformin 1,000 mg PO 2x/day Hgb A1c 5.9 RISS ACHS Hx Seizure Phenytoin 100 mg PO TID Dilantin normal HTN Cozaar 50 mg PO 1x/day Anemia; iron deficiency Likely secondary to Iron Deficiency Iron 26 TIBC 461 % saturation 6L Bilateral Cerumen Impaction; improved Patient will need to have ENT remove cerumen; is improving with nursing giving drops and cleaning ears daily ENT consulted peroxide drops ordered for ears Mediastinal Lymphadenopathy As seen on CTA <Freddy Carvalho H - Last Filed: 11/14/16 13:49> Objective - Vital Signs/Intake and Output Vital Signs (last 24 hours): Temp Pulse Resp BP Pulse Ox 98.3 F 97 H 20 132/79 97 11/14/16 09:09 11/14/16 09:09 11/14/16 09:09 11/14/16 11:21 11/14/16 09:09 Intake and Output: 11/14/16 11/14/16 06:59 18:59 Intake Total 240 Balance 240 - Medications Medications: Current Medications Acetaminophen (Tylenol 325mg Tab) 650 mg PO Q6 PRN PRN Reason: Headache Amoxicillin (Amoxil 500 Mg Cap) 500 mg PO Q8H [facility] Last Admin: 11/14/16 09:30 Dose: 500 mg Apixaban (Eliquis) 5 mg PO BID [facility] Last Admin: 11/14/16 10:59 Dose: 5 mg Aspirin (Aspirin Chewable) 81 mg PO DAILY [facility] Last Admin: 11/14/16 10:59 Dose: 81 mg Benzocaine/Menthol (Cepacol Sore Throat) 1 tony MT DAILY PRN PRN Reason: Sore Throat Last Admin: 11/11/16 22:13 Dose: 1 tony Carbamide Peroxide (Debrox Ear Drops) 0 ml AD BID [facility] Last Admin: 11/14/16 11:24 Dose: 10 drop Carvedilol (Coreg) 25 mg PO BID [facility] Last Admin: 11/14/16 10:59 Dose: 25 mg Dextrose (Dextrose 50% Inj) 0 ml IV STAT PRN; Protocol PRN Reason: Hyglycemia Protocol Dextrose (Glutose 15) 0 gm PO ONCE PRN; Protocol PRN Reason: Hypoglycemia Protocol Digoxin (Lanoxin) 0.125 mg PO DAILY@1800 [facility] Last Admin: 11/13/16 18:31 Dose: 0.125 mg Diltiazem HCl (Cardizem Cd) 120 mg PO DAILY [facility] Last Admin: 11/14/16 10:59 Dose: 120 mg Famotidine (Pepcid) 40 mg PO DAILY [facility] Last Admin: 11/14/16 10:59 Dose: 40 mg Fenofibrate (Tricor) 145 mg PO HS [facility] Last Admin: 11/13/16 22:30 Dose: Not Given Finasteride (Proscar) 5 mg PO DAILY [facility] Last Admin: 11/14/16 10:59 Dose: 5 mg Furosemide (Lasix) 40 mg IVP DAILY [facility] Last Admin: 11/14/16 11:21 Dose: 40 mg Glucagon (Glucagen Diagnostic Kit) 0 mg IM STAT PRN; Protocol PRN Reason: Hypoglycemia Protocol Haloperidol (Haldol) 1 mg PO Q4H PRN PRN Reason: Agitation Haloperidol Lactate (Haldol) 1 mg IM ONCE PRN PRN Reason: Agitation Home Med (Patient's Own Drops) 1 drop OU BID [facility] Last Admin: 11/14/16 11:23 Dose: 1 drop Ceftriaxone Sodium 500 mg/ (Sodium Chloride) 50 mls @ 100 mls/hr IVPB Q24H [facility] Last Admin: 11/14/16 10:30 Dose: 100 mls/hr Insulin Human Regular (Novolin R) 0 unit SC ACHS [facility] PRN Reason: Protocol Last Admin: 11/14/16 08:06 Dose: Not Given Lorazepam (Ativan) 1 mg IVP Q6H PRN PRN Reason: Severe agitation Losartan Potassium (Cozaar) 50 mg PO DAILY [facility] Last Admin: 11/14/16 10:59 Dose: 50 mg Meclizine HCl (Antivert) 25 mg PO TID [facility] Last Admin: 11/14/16 11:00 Dose: 25 mg Metformin HCl (Glucophage) 1,000 mg PO BID [facility] Last Admin: 11/13/16 18:15 Dose: 1,000 mg Metoprolol Tartrate (Lopressor) 5 mg IVP Q1H PRN PRN Reason: Other Last Admin: 11/12/16 03:01 Dose: 5 mg Phenytoin Sodium (Dilantin) 100 mg PO TID [facility] Last Admin: 11/14/16 10:59 Dose: 100 mg Rosuvastatin Calcium (Crestor) 5 mg PO HS [facility] Last Admin: 11/13/16 22:30 Dose: Not Given - Labs Labs: 11/14/16 07:13 11/14/16 07:13 PT 21.4 SECONDS (9.7-12.2) H 11/08/16 18:43 INR 1.8 11/08/16 18:43 APTT 40 SECONDS (21-34) H 11/08/16 18:43 Attending/Attestation - Attestation I have personally seen and examined this patient.: Yes I have fully participated in the care of the patient.: Yes I have reviewed all pertinent clinical information, including history, physical exam and plan: Yes Notes (Text): 11/14/16 13:45 Medical attending: Patient was seen and examined by me, agree with the note by the medical assisting program director. The patient's aging box hand was present at bedside As mentioned previously over the weekend the patient had a repeat CT scan of the head of the concern is if he could've had developed a potentially new CVA however it did not show any new acute strokes appreciate neurology help as possible that he's had multiple strokes in the past. 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 At this time were trolling the patient's atrial fibrillation with beta veena, calcium channel veena, as well as IV digoxin. Hopefully tomorrow we'll private branch exchange repairer to oral digoxin UA suggested a potential UTI cultures were collected patient did show Escherichia coli that was sensitive to many different types of antibiotics. He' s currently on IV Zosyn at this time Have to recheck to PT as well as caseworkers. It appears the patient will have to go
[2016-11-14] MEDS: diltiaZEM 120 mg/24 Hours CD Cap PO SCH (10:59)
--- NOTE | 2016-11-14 10:59 | PCM.PYCHPN ---
Psychiatric Progress Note - Psychiatric Progress Note Patient seen today, length of contact: 15 min Patient Chief Complaint: nothing, no response Seen for follow up Problems Identified/Issues Discussed: Seen, chart reviewed, case discussed Still in delirium - sleep is irregular, mood is labile, disoriented, inattentive However, interestingly, his bed neighbor claims he talks more when people leave and that he walks too (?) He is now sort of bed-ridden Support given Medication Change: Yes Medical Record Reviewed: Yes Mental Status Examination - Cognitive Function Orientation: Person (overall disoriented) Memory: Impaired Attention: Poor Concentration: Poor Association: Loose Fund of Knowledge: Poor - Mood Mood: Other (no answer) - Affect Affect: Constricted - Speech Speech: Slurred - Formal Thought Process Formal Thought Process: No Impairment (difficult to assess) - Suicidal Ideation Suicidal Ideation: No - Homicidal Ideation Homicidal Ideation: No Goal/Treatment Plan - Goal/Treatment Plan Progress Toward Problem(s) and Goals/Treatment Plan: prn haldol 1 mg for agitation (PO or IM, not IV) prn ativan 1 mg for severe agitation (use less due to confusion risk and his age ) Trazodone 25 mg helps agitation and sleep Consider inderal TID if needed (also helps agitaion in delirium and dementia) Continue treating underlying causes (main treatment for delirium) Support, frequent orientation 1:1 for now Dementia work-up (vit b12, folate levels, vit d, TSH, RPR, etc.) 32 min
[2016-11-14] MEDS: DORZOLAMIDE OU SCH ×2 (11:23→17:24)
[2016-11-14] MEDS: TIMOLOL EYE OU SCH ×2 (11:23→17:24)
--- NOTE | 2016-11-14 12:41 | CP.PCM.PN ---
Subjective - Date & Time of Evaluation Date of Evaluation: 11/14/16 Time of Evaluation: 12:38 - Subjective Subjective: CONDITION REMAINS SAME. UNCOOPERATIVE. AFEBRILE. NO ACUTE DISTRESS. HR 100 Objective - Vital Signs/Intake and Output Vital Signs (last 24 hours): Temp Pulse Resp BP Pulse Ox 98.3 F 97 H 20 132/79 97 11/14/16 09:09 11/14/16 09:09 11/14/16 09:09 11/14/16 11:21 11/14/16 09:09 Intake and Output: 11/14/16 11/14/16 06:59 18:59 Intake Total 240 Balance 240 - Medications Medications: Current Medications Acetaminophen (Tylenol 325mg Tab) 650 mg PO Q6 PRN PRN Reason: Headache Amoxicillin (Amoxil 500 Mg Cap) 500 mg PO Q8H [facility] Last Admin: 11/14/16 09:30 Dose: 500 mg Apixaban (Eliquis) 5 mg PO BID [facility] Last Admin: 11/14/16 10:59 Dose: 5 mg Aspirin (Aspirin Chewable) 81 mg PO DAILY [facility] Last Admin: 11/14/16 10:59 Dose: 81 mg Benzocaine/Menthol (Cepacol Sore Throat) 1 tony MT DAILY PRN PRN Reason: Sore Throat Last Admin: 11/11/16 22:13 Dose: 1 tony Carbamide Peroxide (Debrox Ear Drops) 0 ml AD BID [facility] Last Admin: 11/14/16 11:24 Dose: 10 drop Carvedilol (Coreg) 25 mg PO BID [facility] Last Admin: 11/14/16 10:59 Dose: 25 mg Dextrose (Dextrose 50% Inj) 0 ml IV STAT PRN; Protocol PRN Reason: Hyglycemia Protocol Dextrose (Glutose 15) 0 gm PO ONCE PRN; Protocol PRN Reason: Hypoglycemia Protocol Digoxin (Lanoxin) 0.125 mg PO DAILY@1800 [facility] Last Admin: 11/13/16 18:31 Dose: 0.125 mg Diltiazem HCl (Cardizem Cd) 120 mg PO DAILY [facility] Last Admin: 11/14/16 10:59 Dose: 120 mg Famotidine (Pepcid) 40 mg PO DAILY [facility] Last Admin: 11/14/16 10:59 Dose: 40 mg Fenofibrate (Tricor) 145 mg PO HS [facility] Last Admin: 11/13/16 22:30 Dose: Not Given Finasteride (Proscar) 5 mg PO DAILY [facility] Last Admin: 11/14/16 10:59 Dose: 5 mg Furosemide (Lasix) 40 mg IVP DAILY [facility] Last Admin: 11/14/16 11:21 Dose: 40 mg Glucagon (Glucagen Diagnostic Kit) 0 mg IM STAT PRN; Protocol PRN Reason: Hypoglycemia Protocol Haloperidol (Haldol) 1 mg PO Q4H PRN PRN Reason: Agitation Haloperidol Lactate (Haldol) 1 mg IM ONCE PRN PRN Reason: Agitation Home Med (Patient's Own Drops) 1 drop OU BID [facility] Last Admin: 11/14/16 11:23 Dose: 1 drop Ceftriaxone Sodium 500 mg/ (Sodium Chloride) 50 mls @ 100 mls/hr IVPB Q24H [facility] Last Admin: 11/14/16 10:30 Dose: 100 mls/hr Insulin Human Regular (Novolin R) 0 unit SC ACHS [facility] PRN Reason: Protocol Last Admin: 11/14/16 08:06 Dose: Not Given Lorazepam (Ativan) 1 mg IVP Q6H PRN PRN Reason: Severe agitation Losartan Potassium (Cozaar) 50 mg PO DAILY [facility] Last Admin: 11/14/16 10:59 Dose: 50 mg Meclizine HCl (Antivert) 25 mg PO TID [facility] Last Admin: 11/14/16 11:00 Dose: 25 mg Metformin HCl (Glucophage) 1,000 mg PO BID [facility] Last Admin: 11/13/16 18:15 Dose: 1,000 mg Metoprolol Tartrate (Lopressor) 5 mg IVP Q1H PRN PRN Reason: Other Last Admin: 11/12/16 03:01 Dose: 5 mg Phenytoin Sodium (Dilantin) 100 mg PO TID [facility] Last Admin: 11/14/16 10:59 Dose: 100 mg Rosuvastatin Calcium (Crestor) 5 mg PO HS [facility] Last Admin: 11/13/16 22:30 Dose: Not Given - Labs Labs: 11/14/16 07:13 11/14/16 07:13 PT 21.4 SECONDS (9.7-12.2) H 11/08/16 18:43 INR 1.8 11/08/16 18:43 APTT 40 SECONDS (21-34) H 11/08/16 18:43 - Constitutional Appears: No Acute Distress, Chronically Ill - Eye Exam Eye Exam: Normal appearance, PERRL - ENT Exam ENT Exam: Mucous Membranes Moist, Normal Exam - Respiratory Exam Respiratory Exam: Clear to Ausculation Bilateral, NORMAL BREATHING PATTERN - Cardiovascular Exam Cardiovascular Exam: Irregular Rhythm, +S1, +S2 - GI/Abdominal Exam GI & Abdominal Exam: Soft, Normal Bowel Sounds - Extremities Exam Extremities Exam: Full ROM, Normal Capillary Refill, Normal Inspection. absent : Joint Swelling, Pedal Edema Assessment and Plan - Assessment and Plan (Free Text) Assessment: A. FIB CHF. STABLE. Plan: CT PRESENT TREATMENT.
[2016-11-14] MEDS: Digoxin 125 mcg (0.125 mg) Tab PO SCH (17:24)
[2016-11-14 17:25] VITALS: PULSE 1
--- NOTE | 2016-11-14 22:16 | CARD ---
APPROVED REPORT EKG Measurement Heart [id number] <Conclusion> Atrial fibrillation with rapid ventricular response Left anterior fascicular block ST & T wave abnormality, consider lateral ischemia Abnormal ECG
[2016-11-15 07:11] LABS: BASO # 0.1 K/uL (0.0-0.2); BASO % 1.1 % (0.0-2.0); EOS # 0.2 K/uL (0.0-0.7); EOS % 1.9 % (0.0-4.0); HEMATOCRIT 35.5 % (35.0-51.0); LYMPH # 1.2 K/uL (1.0-4.3); LYMPH % 12.1 % (20.0-40.0); MEAN CELL VOLUME 79.9 fL (80.0-94.0); MEAN CORPUSCULAR HEMOGLOBIN 26.5 pg (27.0-31.0); MEAN CORPUSCULAR HGB CONC 33.2 g/dL (33.0-37.0); MEAN PLATELET VOLUME 10.6 fL (7.2-11.7); MONO # 1.4 K/uL (0.0-0.8); MONO % 13.7 % (0.0-10.0); RED CELL DISTRIBUTION WIDTH 14.7 % (11.5-14.5); WHITE BLOOD COUNT 9.9 K/uL (4.8-10.8)
[2016-11-15 07:22] LABS: CHLORIDE 100 mmol/L (98-107)
[2016-11-15 07:23] LABS: POTASSIUM 3.7 mmol/L (3.6-5.2); SODIUM 136 mmol/L (132-148)
[2016-11-15] MEDS: (Novolin R) Insulin Human Regular 100 units/ml vial SC SCH ×2 (07:24→11:51)
[2016-11-15 07:25] LABS: ALB/GLOB RATIO 0.9 (1.0-2.1); ALKALINE PHOSPHATASE 40 U/L (38-126); AST/SGOT 42 U/L (17-59); BILIRUBIN,TOTAL 1.2 mg/dL (0.2-1.3); BLOOD UREA NITROGEN 31 mg/dL (9-20); CARBON DIOXIDE 24 mmol/L (22-30); GFR AFRICAN-AMERICAN > 60; GLUCOSE,RANDOM 111 mg/dL (75-110); TOTAL PROTEIN 7.8 g/dL (6.3-8.3)
[2016-11-15 07:26] LABS: ALT/SGPT 26 U/L (21-72); CALCIUM 9.3 mg/dl (8.6-10.4)
[2016-11-15 08:55] VITALS: TEMP 98.6; O2SAT 97
[2016-11-15] MEDS: cefTRIAXone 500 MG in Sodium Chloride 0.9% 50 ML IVPB SCH (09:32)
[2016-11-15] MEDS: TIMOLOL EYE OU SCH ×2 (09:33→10:18)
[2016-11-15] MEDS: diltiaZEM 120 mg/24 Hours CD Cap PO SCH (09:33)
[2016-11-15] MEDS: DORZOLAMIDE OU SCH ×2 (09:33→10:18)
--- NOTE | 2016-11-15 09:36 | CP.PCM.PN ---
Objective - Vital Signs/Intake and Output Vital Signs (last 24 hours): Temp Pulse Resp BP Pulse Ox 98.6 F 82 20 126/79 97 11/15/16 08:53 11/15/16 08:53 11/15/16 08:53 11/15/16 08:53 11/15/16 08:53 - Medications Medications: Current Medications Acetaminophen (Tylenol 325mg Tab) 650 mg PO Q6 PRN PRN Reason: Headache Amoxicillin (Amoxil 500 Mg Cap) 500 mg PO Q8H [facility] Last Admin: 11/15/16 00:58 Dose: 500 mg Apixaban (Eliquis) 5 mg PO BID [facility] Last Admin: 11/14/16 17:24 Dose: 5 mg Aspirin (Aspirin Chewable) 81 mg PO DAILY [facility] Last Admin: 11/14/16 10:59 Dose: 81 mg Benzocaine/Menthol (Cepacol Sore Throat) 1 tony MT DAILY PRN PRN Reason: Sore Throat Last Admin: 11/11/16 22:13 Dose: 1 tony Carbamide Peroxide (Debrox Ear Drops) 0 ml AD BID [facility] Last Admin: 11/14/16 17:25 Dose: 5 drop Carvedilol (Coreg) 25 mg PO BID [facility] Last Admin: 11/14/16 17:25 Dose: 25 mg Dextrose (Dextrose 50% Inj) 0 ml IV STAT PRN; Protocol PRN Reason: Hyglycemia Protocol Dextrose (Glutose 15) 0 gm PO ONCE PRN; Protocol PRN Reason: Hypoglycemia Protocol Digoxin (Lanoxin) 0.125 mg PO DAILY@1800 [facility] Last Admin: 11/14/16 17:24 Dose: 0.125 mg Diltiazem HCl (Cardizem Cd) 120 mg PO DAILY [facility] Last Admin: 11/14/16 10:59 Dose: 120 mg Famotidine (Pepcid) 40 mg PO DAILY [facility] Last Admin: 11/14/16 10:59 Dose: 40 mg Fenofibrate (Tricor) 145 mg PO HS [facility] Last Admin: 11/14/16 21:17 Dose: Not Given Finasteride (Proscar) 5 mg PO DAILY [facility] Last Admin: 11/14/16 10:59 Dose: 5 mg Furosemide (Lasix) 40 mg IVP DAILY [facility] Last Admin: 11/14/16 11:21 Dose: 40 mg Glucagon (Glucagen Diagnostic Kit) 0 mg IM STAT PRN; Protocol PRN Reason: Hypoglycemia Protocol Haloperidol (Haldol) 1 mg PO Q4H PRN PRN Reason: Agitation Haloperidol Lactate (Haldol) 1 mg IM ONCE PRN PRN Reason: Agitation Home Med (Patient's Own Drops) 1 drop OU BID [facility] Last Admin: 11/14/16 17:24 Dose: 1 drop Ceftriaxone Sodium 500 mg/ (Sodium Chloride) 50 mls @ 100 mls/hr IVPB Q24H [facility] Last Admin: 11/14/16 10:30 Dose: 100 mls/hr Insulin Human Regular (Novolin R) 0 unit SC ACHS [facility] PRN Reason: Protocol Last Admin: 11/15/16 07:24 Dose: Not Given Losartan Potassium (Cozaar) 50 mg PO DAILY [facility] Last Admin: 11/14/16 10:59 Dose: 50 mg Meclizine HCl (Antivert) 25 mg PO TID [facility] Last Admin: 11/14/16 17:23 Dose: 25 mg Metformin HCl (Glucophage) 1,000 mg PO BID [facility] Last Admin: 11/14/16 17:23 Dose: 1,000 mg Metoprolol Tartrate (Lopressor) 5 mg IVP Q1H PRN PRN Reason: Other Last Admin: 11/12/16 03:01 Dose: 5 mg Phenytoin Sodium (Dilantin) 100 mg PO TID [facility] Last Admin: 11/14/16 17:24 Dose: 100 mg Rosuvastatin Calcium (Crestor) 5 mg PO HS [facility] Last Admin: 11/14/16 21:16 Dose: Not Given - Labs Labs: 11/15/16 07:01 11/15/16 07:01 PT 21.4 SECONDS (9.7-12.2) H 11/08/16 18:43 INR 1.8 11/08/16 18:43 APTT 40 SECONDS (21-34) H 11/08/16 18:43
[2016-11-15 10:07] VITALS: BP 132/77
--- NOTE | 2016-11-15 10:37 | CP.PCM.DIS ---
<Raeann Gtz Lesly - Last Filed: 11/15/16 10:50> Provider - Provider Date of Admission: 11/10/16 13:40 Attending physician: Adrián Cm MD Primary care physician: Dr. Rodriguez Consults: Dr. Sanches (cardiology) Dr. Reynoso (neuro) Dr. La (psych) Time Spent in preparation of Discharge (in minutes): 45 Diagnosis - Discharge Diagnosis (1) CHF (congestive heart failure) Status: Resolved (2) UTI (urinary tract infection) Status: Acute (3) Diabetes mellitus Status: Chronic (4) History of seizures Status: Chronic (5) Pacemaker Status: Chronic (6) BPH (benign prostatic hyperplasia) Status: Chronic (7) Anemia Status: Chronic (8) Atrial fibrillation Status: Chronic (9) Cough Status: Resolved (10) Dyspnea Status: Resolved Hospital Course - Lab Results Lab Results: Micro Results 11/08/16 18:05 Blood Blood Culture - Final NO GROWTH AFTER 5 DAYS 11/08/16 18:05 Blood Gram Stain - Final TEST NOT PERFORMED 11/08/16 18:05 Blood Blood Culture - Final NO GROWTH AFTER 5 DAYS 11/08/16 18:05 Blood Gram Stain - Final TEST NOT PERFORMED 11/10/16 14:30 Urine,Catheterized Urine Culture - Final Escherichia Coli 11/10/16 14:30 Urine,Clean Catch Urine Culture - Final Escherichia Coli Most Recent Lab Values WBC 9.9 K/uL (4.8-10.8) 11/15/16 07:01 RBC 4.45 Mil/uL (4.40-5.90) 11/15/16 07:01 Hgb 11.8 g/dL (12.0-18.0) L 11/15/16 07:01 Hct 35.5 % (35.0-51.0) 11/15/16 07:01 MCV 79.9 fL (80.0-94.0) L 11/15/16 07:01 MCH 26.5 pg (27.0-31.0) L 11/15/16 07:01 MCHC 33.2 g/dL (33.0-37.0) 11/15/16 07:01 RDW 14.7 % (11.5-14.5) H 11/15/16 07:01 Plt Count 295 K/uL (130-400) 11/15/16 07:01 MPV 10.6 fL (7.2-11.7) 11/15/16 07:01 Neut % (Auto) 71.2 % (50.0-75.0) 11/15/16 07:01 Lymph % (Auto) 12.1 % (20.0-40.0) L 11/15/16 07:01 Swisher % (Auto) 13.7 % (0.0-10.0) H 11/15/16 07:01 Eos % (Auto) 1.9 % (0.0-4.0) 11/15/16 07:01 Baso % (Auto) 1.1 % (0.0-2.0) 11/15/16 07:01 Neut # 7.1 K/uL (1.8-7.0) H 11/15/16 07:01 Lymph # 1.2 K/uL (1.0-4.3) 11/15/16 07:01 Swisher # 1.4 K/uL (0.0-0.8) H 11/15/16 07:01 Eos # 0.2 K/uL (0.0-0.7) 11/15/16 07:01 Baso # 0.1 K/uL (0.0-0.2) 11/15/16 07:01 Neutrophils % (Manual) 83 % (50-75) H 11/11/16 07:06 Band Neutrophils % 2 % (0-2) 11/11/16 07:06 Lymphocytes % (Manual) 7 % (20-40) L 11/11/16 07:06 Monocytes % (Manual) 8 % (0-10) 11/11/16 07:06 Platelet Estimate Normal (NORMAL) 11/11/16 07:06 Large Platelets Present 11/11/16 07:06 Polychromasia Slight 11/11/16 07:06 Hypochromasia (manual) Slight 11/11/16 07:06 Poikilocytosis (manual Slight 11/11/16 07:06 Anisocytosis (manual) Slight 11/11/16 07:06 Tear Drop Cells Slight 11/11/16 07:06 Ovalocytes Slight 11/11/16 07:06 PT 21.4 SECONDS (9.7-12.2) H 11/08/16 18:43 INR 1.8 11/08/16 18:43 APTT 40 SECONDS (21-34) H 11/08/16 18:43 Sodium 136 mmol/L (132-148) 11/15/16 07:01 Potassium 3.7 mmol/L (3.6-5.2) 11/15/16 07:01 Chloride 100 mmol/L (98-107) 11/15/16 07:01 Carbon Dioxide 24 mmol/L (22-30) 11/15/16 07:01 Anion Gap 17 (10-20) 11/15/16 07:01 BUN 31 mg/dL (9-20) H 11/15/16 07:01 Creatinine 1.1 mg/dL (0.8-1.5) 11/15/16 07:01 Est GFR ( Amer) > 60 11/15/16 07:01 Est GFR (Non-Af Amer) > 60 11/15/16 07:01 POC Glucose (mg/dL) 107 mg/dL (65-110) 11/14/16 21:21 Random Glucose 111 mg/dL (75-110) H 11/15/16 07:01 Hemoglobin A1c 5.9 % (4.2-6.5) 11/09/16 13:46 Calcium 9.3 mg/dl (8.6-10.4) 11/15/16 07:01 Iron 26 ug/dL (49-181) L 11/09/16 13:46 TIBC 461 ug/dL (250-450) H 11/09/16 13:46 % Saturation 6 (20-55) L 11/09/16 13:46 Ferritin 87.1 ng/mL 11/09/16 08:06 Total Bilirubin 1.2 mg/dL (0.2-1.3) 11/15/16 07:01 AST 42 U/L (17-59) 11/15/16 07:01 ALT 26 U/L (21-72) 11/15/16 07:01 Alkaline Phosphatase 40 U/L (38-126) 11/15/16 07:01 Total Creatine Kinase 75 U/L (55-170) 11/14/16 20:27 CK-MB (Mass) 1.29 ng/mL (0.0-3.38) 11/14/16 20:27 Troponin I 0.0350 ng/mL (0.00-0.120) 11/09/16 13:46 Troponin I, Quant 0.0720 ng/mL (0.00-0.120) 11/14/16 20:27 NT-Pro-B Natriuret Pep 1950 pg/mL (0-900) H 11/08/16 18:43 Total Protein 7.8 g/dL (6.3-8.3) 11/15/16 07:01 Albumin 3.6 g/dL (3.5-5.0) 11/15/16 07:01 Globulin 4.1 gm/dL (2.2-3.9) H 11/15/16 07:01 Albumin/Globulin Ratio 0.9 (1.0-2.1) L 11/15/16 07:01 Urine Color Yellow (YELLOW) 11/10/16 14:25 Urine Clarity Clear (Clear) 11/10/16 14:25 Urine pH 5.0 (5.0-8.0) 11/10/16 14:25 Ur Specific [place] 1.009 (1.003-1.030) 11/10/16 14:25 Urine Protein Negative mg/dL (NEGATIVE) 11/10/16 14:25 Urine Glucose (UA) Normal mg/dL (Normal) 11/10/16 14:25 Urine Ketones Negative mg/dL (NEGATIVE) 11/10/16 14:25 Urine Blood 2+ (NEGATIVE) H 11/10/16 14:25 Urine Nitrate Negative (NEGATIVE) 11/10/16 14:25 Urine Bilirubin Negative (NEGATIVE) 11/10/16 14:25 Urine Urobilinogen 2.0 mg/dL (0.2-1.0) 11/10/16 14:25 Ur Leukocyte Esterase Trace Sarah/uL (Negative) 11/10/16 14:25 Urine WBC (Auto) 3 /hpf (0-5) 11/10/16 14:25 Urine RBC (Auto) 14 /hpf (0-3) H 11/10/16 14:25 Ur Squamous Epith Cells 1 /hpf (0-5) 11/10/16 14:25 Urine Bacteria Occ (<OCC) H 11/10/16 14:25 Phenytoin 13.5 ug/mL (10-20) 11/09/16 13:46 Influenza Typ A,B (EIA) Negative for flu a/b (NEGATIVE) 11/09/16 09:03 - Hospital Course Hospital Course: "86 yo M was brought to the ED by his family. The patient is a very poor historian and the family had already left when I interviewed the patient and could not be reached by telephone. Per patient, he presented to the ED for shortness of breath that began 4 days ago. He also complains of subjective fever , diffuse chest pain, cough and abdominal pain. He denied all other prompts on review of symptom. He was not able to tell me his past medical history however his home medications were brought by his family earlier as per nurse. He stated his PMD is Dr Rodriguez and that he usually goes to [facility]. Upon chart review, this is the patient's first admission at [facility], [place]. " Hospital Course: Patient admitted for shortness of breath secondary to chronic diastolic dysfunction. 2D Echo on 11/09/16 showed EF 60-65%, Grade 1 diastolic dysfunction , severe pulmonary HTN, small pericardial effusion. CTA: NO PE, NO Dissection, enlarged main pulmonary artery with increased right ventricular/left ventricular ratio, pulmonary artery HTN, right ventricular dysfunction, mediastinal lymphadenopathy. Cardiac Consult: Dr. Ksenia Sanches: who recommended continuing current treatment. Troponin x 3 negative. Daily weights checked. Patient treated with Lasix 40 mg IVP daily. A-fib; not rate controlled (Afib RVR): Patient treated with Eliquis 5 mg PO 1x/ day, Metoprolol PRN HR >110, Cardizem drip 5mg HR >130, Digoxin .125 mg po daily. Patient's heart rate stabilized. Patient to continue medications. BPH: Patient treated with Finasteride 5mg po daily. Hyperlipidemia: Patient treated with Tricor 45 mg PO HS and Crestor 5 mg PO HS. Diabetes: Patient treated with Metformin 1,000 mg PO 2x/day. Hgb A1c was 5.9. Hx Seizures: Patient treated with Phenytoin 100 mg PO TID. Phenytoin level within normal limits. HTN: Controlled with Cozaar 50 mg PO 1x/day Anemia; iron deficiency: Likely secondary to Iron Deficiency. Lab results showed : Iron 26, TIBC 461, % saturation 6. Bilateral Cerumen Impaction: Patient had debrox drops placed daily to help loosen cerumen. Patient will need to have ENT to remove cerumen as an outpatient. Altered Mental Status: Patient was to be discharged on 11/09 when it was noticed that he had a change in mental status and was less alert/ oriented. No facial droop or extremities weakness appreciated. 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 Reynoso mentioned CT head read being chronic changes only " CT scan of the head was done and showed the chronic appearing right frontal lobe infarct, but no acute findings." Psychiatry consulted, Dr. La, who started the patient on Haldol and Ativan PRN for agitation. Also put on Trazadone for sleep. Patient taken off of those medications due to sedation. Patient became more alert and oriented. vice president commercial bank spoke with patient's who states her is able to walk at home with assistance. 1 year ago in early 2015, patient's former homemaker noticed a change in patient's mentation. Urine culture was checked with came back positive for E. Coli. Patient treated with Amoxicillin and Ceftriaxone. Patient seen and examined and in no acute distress. Patient able to respond some to questions and denied any complaints. Patient compliant with medications Patient stable for discharge to [facility] as per Dr. Carvalho. This is a summary of the patient's hospital course, please see chart for details. Discharge Exam - Head Exam Head Exam: NORMAL INSPECTION, NORMOCEPHALIC - Eye Exam Additional comments: Patient is legally blind and looks in the general direction of the voice when spoken to - ENT Exam ENT Exam: Mucous Membranes Moist - Neck Exam Neck exam: Full Rom - Respiratory Exam Respiratory Exam: NORMAL BREATHING PATTERN. absent: Accessory Muscle Use, Respiratory Distress - Cardiovascular Exam Cardiovascular Exam: Irregular Rhythm, +S1, +S2 - GI/Abdominal Exam GI & Abdominal Exam: Normal Bowel Sounds, Soft. absent: Tenderness - Extremities Exam Extremities exam: normal inspection - Neurological Exam Neurological exam: Alert - Psychiatric Exam Psychiatric exam: Normal Affect, Normal Mood - Skin Skin Exam: Intact, Normal Color, Warm Discharge Plan - Discharge Medications Prescriptions: Apixaban [Eliquis] 5 mg PO BID #60 tab Carvedilol [Coreg] 25 mg PO BID 30 Days tab Dutasteride [Avodart] 0.5 mg PO DAILY #30 capsule Famotidine [Pepcid] 40 mg PO DAILY 30 Days tab Fenofibrate [Tricor] 1 tab PO DAILY 30 Days tab Furosemide [Lasix] 20 mg PO DAILY 30 Days tab Losartan [Cozaar] 50 mg PO DAILY 30 Days tab MetFORMIN [glucoPHAGE] 1,000 mg PO BID 30 Days tab Phenytoin Sodium Extended 100 mg PO TID #90 capsule Rosuvastatin Calcium [Crestor] 5 mg PO HS 30 Days tab Simvastatin 20 mg PO HS 30 Days tablet - Follow Up Plan Condition: FAIR Disposition: REHAB FACILITY/REHAB UNIT Instructions: Famotidine (By mouth), Furosemide (By mouth), Finasteride (By mouth), Simvastatin (By mouth), Losartan (By mouth), Metformin (By mouth), Carvedilol (By mouth), Fenofibrate (By mouth), Apixaban (By mouth), Heart Failure (DC), Atrial Fibrillation (DC), Heart Healthy Diet (DC), Diabetic Foot Care (DC), Basic Carbohydrate Counting (DC), Meal Planning with the Plate Method (DC), Meal Planning with Diabetes Exchanges (DC) Additional Instructions: Patient stable for discharge as per Dr. Carvalho. Patient to follow up with Dr. Rincon after JUDE. Please follow up with Dr. Reynoso for seizure history. Please see ENT for evacuation of cerumen. Follow up with [employer], Dr. Navin Sanches for grade I diastolic dysfunction. Please return to Emergency Room if symptoms return or persist. Referrals: Eddie Rodriguez MD [Staff Provider] - Josh Reynoso MD [Staff Provider] - Ksenia Sanches MD [Staff Provider] - <Freddy Carvalho H - Last Filed: 11/15/16 11:47> Provider - Provider Date of Admission: 11/10/16 13:40 Attending physician: Adrián Cm MD Hospital Course - Lab Results Lab Results: Micro Results 11/08/16 18:05 Blood Blood Culture - Final NO GROWTH AFTER 5 DAYS 11/08/16 18:05 Blood Gram Stain - Final TEST NOT PERFORMED 11/08/16 18:05 Blood Blood Culture - Final NO GROWTH AFTER 5 DAYS 11/08/16 18:05 Blood Gram Stain - Final TEST NOT PERFORMED 11/10/16 14:30 Urine,Catheterized Urine Culture - Final Escherichia Coli 11/10/16 14:30 Urine,Clean Catch Urine Culture - Final Escherichia Coli Most Recent Lab Values WBC 9.9 K/uL (4.8-10.8) 10/04/17 07:01 RBC 4.45 Mil/uL (4.40-5.90) 11/15/16 07:01 Hgb 11.8 g/dL (12.0-18.0) L 11/15/16 07:01 Hct 35.5 % (35.0-51.0) 11/15/16 07:01 MCV 79.9 fL (80.0-94.0) L 11/15/16 07:01 MCH 26.5 pg (27.0-31.0) L 11/15/16 07:01 MCHC 33.2 g/dL (33.0-37.0) 11/15/16 07:01 RDW 14.7 % (11.5-14.5) H 11/15/16 07:01 Plt Count 295 K/uL (130-400) 11/15/16 07:01 MPV 10.6 fL (7.2-11.7) 11/15/16 07:01 Neut % (Auto) 71.2 % (50.0-75.0) 11/15/16 07:01 Lymph % (Auto) 12.1 % (20.0-40.0) L 11/15/16 07:01 Swisher % (Auto) 13.7 % (0.0-10.0) H 11/15/16 07:01 Eos % (Auto) 1.9 % (0.0-4.0) 11/15/16 07:01 Baso % (Auto) 1.1 % (0.0-2.0) 11/15/16 07:01 Neut # 7.1 K/uL (1.8-7.0) H 11/15/16 07:01 Lymph # 1.2 K/uL (1.0-4.3) 11/15/16 07:01 Swisher # 1.4 K/uL (0.0-0.8) H 11/15/16 07:01 Eos # 0.2 K/uL (0.0-0.7) 11/15/16 07:01 Baso # 0.1 K/uL (0.0-0.2) 11/15/16 07:01 Neutrophils % (Manual) 83 % (50-75) H 11/11/16 07:06 Band Neutrophils % 2 % (0-2) 11/11/16 07:06 Lymphocytes % (Manual) 7 % (20-40) L 11/11/16 07:06 Monocytes % (Manual) 8 % (0-10) 11/11/16 07:06 Platelet Estimate Normal (NORMAL) 11/11/16 07:06 Large Platelets Present 11/11/16 07:06 Polychromasia Slight 11/11/16 07:06 Hypochromasia (manual) Slight 11/11/16 07:06 Poikilocytosis (manual Slight 11/11/16 07:06 Anisocytosis (manual) Slight 11/11/16 07:06 Tear Drop Cells Slight 11/11/16 07:06 Ovalocytes Slight 11/11/16 07:06 PT 21.4 SECONDS (9.7-12.2) H 11/08/16 18:43 INR 1.8 11/08/16 18:43 APTT 40 SECONDS (21-34) H 11/08/16 18:43 Sodium 136 mmol/L (132-148) 11/15/16 07:01 Potassium 3.7 mmol/L (3.6-5.2) 11/15/16 07:01 Chloride 100 mmol/L (98-107) 11/15/16 07:01 Carbon Dioxide 24 mmol/L (22-30) 11/15/16 07:01 Anion Gap 17 (10-20) 11/15/16 07:01 BUN 31 mg/dL (9-20) H 11/15/16 07:01 Creatinine 1.1 mg/dL (0.8-1.5) 11/15/16 07:01 Est GFR ( Amer) > 60 11/15/16 07:01 Est GFR (Non-Af Amer) > 60 11/15/16 07:01 POC Glucose (mg/dL) 107 mg/dL (65-110) 11/14/16 21:21 Random Glucose 111 mg/dL (75-110) H 11/15/16 07:01 Hemoglobin A1c 5.9 % (4.2-6.5) 11/09/16 13:46 Calcium 9.3 mg/dl (8.6-10.4) 11/15/16 07:01 Iron 26 ug/dL (49-181) L 11/09/16 13:46 TIBC 461 ug/dL (250-450) H 11/09/16 13:46 % Saturation 6 (20-55) L 11/09/16 13:46 Ferritin 87.1 ng/mL 11/09/16 08:06 Total Bilirubin 1.2 mg/dL (0.2-1.3) 11/15/16 07:01 AST 42 U/L (17-59) 11/15/16 07:01 ALT 26 U/L (21-72) 11/15/16 07:01 Alkaline Phosphatase 40 U/L (38-126) 11/15/16 07:01 Total Creatine Kinase 75 U/L (55-170) 11/14/16 20:27 CK-MB (Mass) 1.29 ng/mL (0.0-3.38) 11/14/16 20:27 Troponin I 0.0350 ng/mL (0.00-0.120) 11/09/16 13:46 Troponin I, Quant 0.0720 ng/mL (0.00-0.120) 11/14/16 20:27 NT-Pro-B Natriuret Pep 1950 pg/mL (0-900) H 11/08/16 18:43 Total Protein 7.8 g/dL (6.3-8.3) 11/15/16 07:01 Albumin 3.6 g/dL (3.5-5.0) 11/15/16 07:01 Globulin 4.1 gm/dL (2.2-3.9) H 11/15/16 07:01 Albumin/Globulin Ratio 0.9 (1.0-2.1) L 11/15/16 07:01 Urine Color Yellow (YELLOW) 11/10/16 14:25 Urine Clarity Clear (Clear) 11/10/16 14:25 Urine pH 5.0 (5.0-8.0) 11/10/16 14:25 Ur Specific [place] 1.009 (1.003-1.030) 11/10/16 14:25 Urine Protein Negative mg/dL (NEGATIVE) 11/10/16 14:25 Urine Glucose (UA) Normal mg/dL (Normal) 11/10/16 14:25 Urine Ketones Negative mg/dL (NEGATIVE) 11/10/16 14:25 Urine Blood 2+ (NEGATIVE) H 11/10/16 14:25 Urine Nitrate Negative (NEGATIVE) 11/10/16 14:25 Urine Bilirubin Negative (NEGATIVE) 11/10/16 14:25 Urine Urobilinogen 2.0 mg/dL (0.2-1.0) 11/10/16 14:25 Ur Leukocyte Esterase Trace Sarah/uL (Negative) 11/10/16 14:25 Urine WBC (Auto) 3 /hpf (0-5) 11/10/16 14:25 Urine RBC (Auto) 14 /hpf (0-3) H 11/10/16 14:25 Ur Squamous Epith Cells 1 /hpf (0-5) 11/10/16 14:25 Urine Bacteria Occ (<OCC) H 11/10/16 14:25 Phenytoin 13.5 ug/mL (10-20) 11/09/16 13:46 Influenza Typ A,B (EIA) Negative for flu a/b (NEGATIVE) 11/09/16 09:03 Attending/Attestation - Attestation I have personally seen and examined this patient.: Yes I have fully participated in the care of the patient.: Yes I have reviewed all pertinent clinical information, including history, physical exam and plan: Yes Notes (Text): 11/15/16 11:38 Medical Attending: Patient was seen and examined by me. Agree with the above note by the resident. This patient came on 11/08 for what appears to be shortness of breath secondary from CHF exacerbation. His stay/admission while in the hospital is more complicated due to patient being blind, also very HARD of hearing, and also he does not understand K[place]. He was initially planned on DC on 11/09 however the medical team noted a sudden change in his mental status. Because of the history of atrial fibrillation - the concern was for a potential thromboembolic event a CT was done and then a follow CT the next few days. The follow up CTs did not show an acute infarction but he does have older previous ones. I took over care on 11/13 and he was still appearing very confused and alter mental status from my discussion with the medical residents. We did consider MRI however he has a pacemaker and this would have been difficult. He is already on PO anticoagulation, we had to give IV digoxin to also control the HR as well. The patient the next day still appeared non-interactive and not following many commands. At that time we stopped the haldol, ativan as well as trazadone. Today he appears much more awake, he was able to interacting with us on exam. Again we have to speak very loud since he has difficulty hearing. Per my understanding the patient will be going to [place] today thank you Freddy Carvalho
[2016-11-15 12:22] VITALS: PULSE 74
--- NOTE | 2016-11-15 12:29 | CP.PCM.PN ---
Subjective - Date & Time of Evaluation Date of Evaluation: 11/15/16 Time of Evaluation: 12:27 - Subjective Subjective: CARDIAC CONDITION STABLE. NO SOB. NO CP. A. FIB WITH MVR. Objective - Vital Signs/Intake and Output Vital Signs (last 24 hours): Temp Pulse Resp BP Pulse Ox 98.6 F 74 20 132/77 97 11/15/16 08:53 11/15/16 12:16 11/15/16 08:53 11/15/16 09:34 11/15/16 12:16 - Medications Medications: Current Medications Acetaminophen (Tylenol 325mg Tab) 650 mg PO Q6 PRN PRN Reason: Headache Amoxicillin (Amoxil 500 Mg Cap) 500 mg PO Q8H [facility] Last Admin: 11/15/16 09:30 Dose: 500 mg Apixaban (Eliquis) 5 mg PO BID [facility] Last Admin: 11/15/16 09:35 Dose: 5 mg Aspirin (Aspirin Chewable) 81 mg PO DAILY [facility] Last Admin: 11/15/16 09:33 Dose: 81 mg Benzocaine/Menthol (Cepacol Sore Throat) 1 tony MT DAILY PRN PRN Reason: Sore Throat Last Admin: 11/11/16 22:13 Dose: 1 tony Carbamide Peroxide (Debrox Ear Drops) 0 ml AD BID [facility] Last Admin: 11/15/16 09:32 Dose: 10 drop Carvedilol (Coreg) 25 mg PO BID [facility] Last Admin: 11/15/16 09:34 Dose: 25 mg Dextrose (Dextrose 50% Inj) 0 ml IV STAT PRN; Protocol PRN Reason: Hyglycemia Protocol Dextrose (Glutose 15) 0 gm PO ONCE PRN; Protocol PRN Reason: Hypoglycemia Protocol Digoxin (Lanoxin) 0.125 mg PO DAILY@1800 [facility] Last Admin: 11/14/16 17:24 Dose: 0.125 mg Diltiazem HCl (Cardizem Cd) 120 mg PO DAILY [facility] Last Admin: 11/15/16 09:33 Dose: 120 mg Famotidine (Pepcid) 40 mg PO DAILY [facility] Last Admin: 11/15/16 09:34 Dose: 40 mg Fenofibrate (Tricor) 145 mg PO HS [facility] Last Admin: 11/14/16 21:17 Dose: Not Given Finasteride (Proscar) 5 mg PO DAILY [facility] Last Admin: 11/15/16 09:33 Dose: 5 mg Furosemide (Lasix) 40 mg IVP DAILY [facility] Last Admin: 11/15/16 09:34 Dose: 40 mg Glucagon (Glucagen Diagnostic Kit) 0 mg IM STAT PRN; Protocol PRN Reason: Hypoglycemia Protocol Haloperidol (Haldol) 1 mg PO Q4H PRN PRN Reason: Agitation Haloperidol Lactate (Haldol) 1 mg IM ONCE PRN PRN Reason: Agitation Home Med (Patient's Own Drops) 1 drop OU BID [facility] Last Admin: 11/15/16 10:18 Dose: Not Given Ceftriaxone Sodium 500 mg/ (Sodium Chloride) 50 mls @ 100 mls/hr IVPB Q24H [facility] Last Admin: 11/15/16 09:32 Dose: 100 mls/hr Insulin Human Regular (Novolin R) 0 unit SC ACHS WILLY PRN Reason: Protocol Last Admin: 11/15/16 11:51 Dose: Not Given Losartan Potassium (Cozaar) 50 mg PO DAILY [facility] Last Admin: 11/15/16 09:33 Dose: 50 mg Meclizine HCl (Antivert) 25 mg PO TID [facility] Last Admin: 11/15/16 09:33 Dose: 25 mg Metformin HCl (Glucophage) 1,000 mg PO BID [facility] Last Admin: 11/15/16 09:33 Dose: 1,000 mg Metoprolol Tartrate (Lopressor) 5 mg IVP Q1H PRN PRN Reason: Other Last Admin: 11/12/16 03:01 Dose: 5 mg Phenytoin Sodium (Dilantin) 100 mg PO TID [facility] Last Admin: 11/15/16 09:33 Dose: 100 mg Rosuvastatin Calcium (Crestor) 5 mg PO HS [facility] Last Admin: 11/14/16 21:16 Dose: Not Given - Labs Labs: 11/15/16 07:01 11/15/16 07:01 PT 21.4 SECONDS (9.7-12.2) H 11/08/16 18:43 INR 1.8 11/08/16 18:43 APTT 40 SECONDS (21-34) H 11/08/16 18:43 - Constitutional Appears: No Acute Distress, Chronically Ill - Eye Exam Eye Exam: Normal appearance Pupil Exam: PERRL - ENT Exam ENT Exam: Normal Exam - Neck Exam Neck Exam: Normal Inspection - Respiratory Exam Respiratory Exam: Clear to Ausculation Bilateral, NORMAL BREATHING PATTERN - Cardiovascular Exam Cardiovascular Exam: Irregular Rhythm, +S1, +S2 - GI/Abdominal Exam GI & Abdominal Exam: Soft, Normal Bowel Sounds - Extremities Exam Extremities Exam: Full ROM, Normal Capillary Refill, Normal Inspection. absent : Joint Swelling, Pedal Edema - Back Exam Back Exam: NORMAL INSPECTION - Neurological Exam Neurological Exam: Alert, Awake, CN II-XII Intact, Normal Gait, Oriented x3 Assessment and Plan - Assessment and Plan (Free Text) Assessment: A. FIB/ CHF. STABLE. Plan: CT PRESENT TREATMENT.
--- NOTE | 2016-11-15 13:18 | CP.PCM.PN ---
Subjective - Date & Time of Evaluation Date of Evaluation: 11/15/16 Time of Evaluation: 13:16 - Subjective Subjective: Mr. Hanks was seen and examined at the bedside with minimal cooperation. He answers selective questions but not cooperative to assessment. Found patient eating lunch. According to staff, patient is for discharge today. There was no untoward events overnight. Objective - Vital Signs/Intake and Output Vital Signs (last 24 hours): Temp Pulse Resp BP Pulse Ox 98.6 F 74 20 132/77 97 11/15/16 08:53 11/15/16 12:16 11/15/16 08:53 11/15/16 09:34 11/15/16 12:16 - Medications Medications: Current Medications Acetaminophen (Tylenol 325mg Tab) 650 mg PO Q6 PRN PRN Reason: Headache Amoxicillin (Amoxil 500 Mg Cap) 500 mg PO Q8H [facility] Last Admin: 11/15/16 09:30 Dose: 500 mg Apixaban (Eliquis) 5 mg PO BID [facility] Last Admin: 11/15/16 09:35 Dose: 5 mg Aspirin (Aspirin Chewable) 81 mg PO DAILY [facility] Last Admin: 11/15/16 09:33 Dose: 81 mg Benzocaine/Menthol (Cepacol Sore Throat) 1 tony MT DAILY PRN PRN Reason: Sore Throat Last Admin: 11/11/16 22:13 Dose: 1 tony Carbamide Peroxide (Debrox Ear Drops) 0 ml AD BID [facility] Last Admin: 11/15/16 09:32 Dose: 10 drop Carvedilol (Coreg) 25 mg PO BID [facility] Last Admin: 11/15/16 09:34 Dose: 25 mg Dextrose (Dextrose 50% Inj) 0 ml IV STAT PRN; Protocol PRN Reason: Hyglycemia Protocol Dextrose (Glutose 15) 0 gm PO ONCE PRN; Protocol PRN Reason: Hypoglycemia Protocol Digoxin (Lanoxin) 0.125 mg PO DAILY@1800 [facility] Last Admin: 11/14/16 17:24 Dose: 0.125 mg Diltiazem HCl (Cardizem Cd) 120 mg PO DAILY [facility] Last Admin: 11/15/16 09:33 Dose: 120 mg Famotidine (Pepcid) 40 mg PO DAILY [facility] Last Admin: 11/15/16 09:34 Dose: 40 mg Fenofibrate (Tricor) 145 mg PO HS [facility] Last Admin: 11/14/16 21:17 Dose: Not Given Finasteride (Proscar) 5 mg PO DAILY [facility] Last Admin: 11/15/16 09:33 Dose: 5 mg Furosemide (Lasix) 40 mg IVP DAILY [facility] Last Admin: 11/15/16 09:34 Dose: 40 mg Glucagon (Glucagen Diagnostic Kit) 0 mg IM STAT PRN; Protocol PRN Reason: Hypoglycemia Protocol Haloperidol (Haldol) 1 mg PO Q4H PRN PRN Reason: Agitation Haloperidol Lactate (Haldol) 1 mg IM ONCE PRN PRN Reason: Agitation Home Med (Patient's Own Drops) 1 drop OU BID [facility] Last Admin: 11/15/16 10:18 Dose: Not Given Ceftriaxone Sodium 500 mg/ (Sodium Chloride) 50 mls @ 100 mls/hr IVPB Q24H [facility] Last Admin: 11/15/16 09:32 Dose: 100 mls/hr Insulin Human Regular (Novolin R) 0 unit SC ACHS [facility] PRN Reason: Protocol Last Admin: 11/15/16 11:51 Dose: Not Given Losartan Potassium (Cozaar) 50 mg PO DAILY [facility] Last Admin: 11/15/16 09:33 Dose: 50 mg Meclizine HCl (Antivert) 25 mg PO TID [facility] Last Admin: 11/15/16 09:33 Dose: 25 mg Metformin HCl (Glucophage) 1,000 mg PO BID [facility] Last Admin: 11/15/16 09:33 Dose: 1,000 mg Metoprolol Tartrate (Lopressor) 5 mg IVP Q1H PRN PRN Reason: Other Last Admin: 11/12/16 03:01 Dose: 5 mg Phenytoin Sodium (Dilantin) 100 mg PO TID [facility] Last Admin: 11/15/16 09:33 Dose: 100 mg Rosuvastatin Calcium (Crestor) 5 mg PO HS [facility] Last Admin: 11/14/16 21:16 Dose: Not Given - Labs Labs: 11/15/16 07:01 11/15/16 07:01 PT 21.4 SECONDS (9.7-12.2) H 11/08/16 18:43 INR 1.8 11/08/16 18:43 APTT 40 SECONDS (21-34) H 11/08/16 18:43 - Constitutional Appears: Well - Head Exam Head Exam: ATRAUMATIC, NORMAL INSPECTION, NORMOCEPHALIC - Neurological Exam Neurological Exam: Alert, Awake, Oriented x3 Neuro motor strength exam: Left Upper Extremity: 5, Right Upper Extremity: 5, Left Lower Extremity: 5, Right Lower Extremity: 5 Additional comments: Unable to do any other neurological assessment such as finger to nose, sensation and accommodation tests. Assessment and Plan (1) Chronic ischemic right MCA stroke Assessment & Plan: Case discussed with Dr. Reynoso, continue current medical, physical, and occupation therapies. There is no new recommendation from neurology. Status: Chronic
--- NOTE | 2016-11-15 13:41 | PCM.HF ---
Heart Failure Core Measure - Heart Failure Ejection Fraction: 40 % or Greater CAITLYN Inhibitor Prescribed: No Contraindication/Reason for not providing: ARB Beta-Wilmer Prescribed: Carvedilol Angiotensin II Receptor Wilmer Prescribed: Yes AnticoagulationTherapy for Atrial Fibrillation/Atrialflutter: Yes Aldosterone Antagonist Prescribed: No Contraindication/Reason for not providing: EF > 40 Hydralazine Nitrate Prescribed: No Contraindication/Reason for not providing: EF>40 Implantable Cardioverter Defibrillator Therapy: No Contraindication/Reason for not providing: EF > 40 Cardiac Resynchronization Therapy Prescribed: No Contraindication/Reason for not providing: EF > 40 - Follow up Will be discharged to: [facility] (D/C TO [facility]) Follow Up Date (must be within 7 days from discharge): 11/21/16 Follow Up Time: 09:00
== END 2016-11-15 15:30 | DRG 292 ==
LOC: C.ER 15:58 → C.9E 22:07 → C.6T 11-09 01:44 → OBSVTOIN 11-10 13:40
PROVIDERS: ADMIT Family Medicine; ATTEND Family Medicine
DX: I11.0 Hypertensive heart disease with heart failure (principal); I50.33 Acute on chronic diastolic (congestive) heart failure; I31.3 Pericardial effusion (noninflammatory); N39.0 Urinary tract infection, site not specified; E10.9 Type 1 diabetes mellitus without complications; F03.90 Unspecified dementia, unspecified severity, without behavioral disturbance, psychotic disturbance, mood disturbance, and anxiety; I48.91 Unspecified atrial fibrillation; G40.909 Epilepsy, unspecified, not intractable, without status epilepticus; B96.20 Unspecified Escherichia coli [E. coli] as the cause of diseases classified elsewhere; E87.6 Hypokalemia; E78.5 Hyperlipidemia, unspecified; I27.20 Pulmonary hypertension, unspecified; D50.9 Iron deficiency anemia, unspecified; I25.10 Atherosclerotic heart disease of native coronary artery without angina pectoris; N40.0 Benign prostatic hyperplasia without lower urinary tract symptoms; E78.00 Pure hypercholesterolemia, unspecified; H61.23 Impacted cerumen, bilateral; H54.8 Legal blindness, as defined in USA; H91.90 Unspecified hearing loss, unspecified ear; Z79.01 Long term (current) use of anticoagulants; Z79.4 Long term (current) use of insulin; Z79.899 Other long term (current) drug therapy; Z86.73 Personal history of transient ischemic attack (TIA), and cerebral infarction without residual deficits; Z95.0 Presence of cardiac pacemaker